=== PATIENT | female | born 1990 | race Caucasian/White ===

== ENCOUNTER 2020-07-28 11:40 | Outpatient (CLI) | payer OTHER, MEDICAID, SELFPAY ==
--- NOTE | ~2020-07-28 | XR_ITS ---
EXAMINATION: XR hysterosalpingogram DATE: 07/28/2020 12:58 INDICATION: Infertility. TECHNIQUE: Fluoroscopy was performed by the radiologist during contrast infusion into the endometrial cavity of the uterus by the primary physician. Fluoroscopy exposure time was 0.3 minutes. The total number of images was 8. FINDINGS: The intrauterine cavity is normal in morphology. The fallopian tubes are normal. There is n ormal free intraperitoneal spillage of contrast on either side. IMPRESSION: 1. Normal hysterosalpingogram. Reviewed, dictated and finalized at location A. PAINTER
[2020-07-28 12:34] LABS: Beta HCG Quantitative < 2.39 mIU/ML
--- NOTE | 2020-07-29 08:33 | PM.PROC ---
Procedure Note - Detailed Date of procedure: 07/29/20 Pre-op diagnosis: female infertility/z01.89 Post-op diagnosis: same Procedure performed: Hysterosalpingogram Description of procedure: Patient was on the fluoroscopic table. A speculum was placed in the vagina. The cervix was cleaned with Betadine. A catheter was placed the intrauterine cavity and the balloon was inflated at the tip of the catheter. The radiologist was present and began to capture images. Radiopaque dye was then instilled into the intrauterine cavity. The above findings were noted. When dye injection was completed. The balloon catheter was collapsed and the catheter was withdrawn. A final image the into atrial cavity was captured. The speculum had been was drawn prior to injection of the dye. Speculum and catheter were removed completely. The procedure was terminated. Anesthesia: none Surgeon: Dave Leo MD Estimated blood loss (mL): 0 Drains: No Packing: No Pathology: none sent Complications: No immediate complications Condition: stable Findings: Both tubes were patent, radiopaque dye was observed spilling into the pelvic cavity bilaterally at the end of the tubes. There was a normal-appearing endometrial cavity..
== END 2020-07-28 11:41 | disposition home or self-care (01) ==
PROVIDERS: PCP Nurse Practitioner; Visit Provider Obstetrics & Gynecology
DX: N97.9 Female infertility, unspecified (principal); Z01.89 Encounter for other specified special examinations
CPT/HCPCS: 36415; 74740; 84702; Q9966

== ENCOUNTER 2021-04-15 10:30 | Outpatient (RCR) | payer OTHER, SELFPAY ==
--- NOTE | 2021-03-23 14:23 | PTOPEVAL ---
INITIAL PHYSICAL THERAPY EVALUATION and PLAN OF CARE Thank you for referring Celeste Emery to [facility].? Celeste is scheduled to be seen for physical therapy? 2x/week for 2 weeks, 1x/wk x 4 wks. Please review, sign, date and return this plan of care ELVIA. I agree with and certify that the following plan of care is medically necessary. Referring Physician Date Admitting Provider: Attending Provider: Katty Ledezma, BLOCKER AUTOMATIC Referring Provider: *PT Outpatient Evaluation Start: 03/23/21 12:41 Freq: Status: Active Protocol: Document 03/23/21 12:40 RAVIN (Rec: 03/23/21 14:23 RAVIN [id number]) Therapy Assessment Status Assessment Status Assessment Status Evaluation Outpatient Past Medical History Past Medical History Source of Past Medical History Patient Neurological History Hx Other Neurological Disorders Yes: LE neuropathy - thigh distally Cardiovascular History Hx Hypertension Yes Gastrointestinal History Hx Cholecystectomy Yes Hx Gastroesophageal Reflux Disease Yes Hx Hernia Yes: at age 5 Musculoskeletal History Hx Fractures Yes: L clavicle, 5th metacarpal R hand - as child Endocrine History Hx Diabetes Yes: pre diabetic Hx Other Endocrine Disorders Yes: Hashimotos HEENT History Hx Tonsillectomy Yes: 2006 Reproductive History Hx Endometriosis Yes: biopsy, 2 surgeries Evaluation Information Problem Diagnosis chronic pelvic pain of female, incontinence Onset ~ 7-8 months ago Subjective Information Began to feel some urination Query Text:As Reported By Patient/ leakage once sitting after she Family went to the bathroom. At night - woke up with urge - but had already leaked. In sitting - if feels urge, sometimes feels like she has to hold herself once standing so that she doesn't leak. Will have pain with intercourse - insertion always . Then with penetration - feels like he is hitting something inside which hurts. Will have a constant lower abdominal pain - worsening with bladder problems. Bladder instillation scheduled for 03/29/2021 Prior Level of Function Activity Level (Last 3 Months) Occupation door dash,
--- NOTE | 2021-03-26 11:49 | PCPTNOTE ---
Pt called and cancelled per loan secretary stating she just left to ER and needed to cancel today .
--- NOTE | 2021-03-30 10:18 | PCPTNOTE ---
pt n/s n/c for today's appt. Contacted pt who thought her appt was monday and this week. Pt stated she will be here for appt.
--- NOTE | 2021-04-08 13:11 | PCPTNOTE ---
Patient did not show up for scheduled appointment this date. Attempted to contact pt to remind her of the next appt. recording stated the call could not go through at this time.
--- NOTE | 2021-04-20 13:35 | PCPTNOTE ---
Patient called & cancelled scheduled appointment this date due to not feeling well. Running low grade fever.
--- NOTE | 2021-04-27 11:10 | PCPTNOTE ---
Patient called & cancelled scheduled appointment this date due to having surgery for cyst. She thinks this is the source of her pain. No plans to return to PT afterwards. Will d/c from PT.
--- NOTE | 2021-04-27 11:14 | PCPTNOTE ---
PHYSICAL THERAPY DISCHARGE SUMMARY Admitting Provider: Attending Provider: Katty Ledezma, BANDOLEER STRAIGHTENER STAMPER Patient:Celeste Emery Date of :1990 Celeste called to cancel today's appointment, 04/27/2021, which was her re-evaluation appointment. She is having surgery for a cyst and thinks that is the source of her pain. She did not reschedule her re-evaluation appointment. She was seen x 3 visits. She did have 2 no show visits and 1 cancelled appointment. She will be discharged from PT at this time. The goals have been partially met. Thank you for referring Celeste to [facility]. Please review, sign, date and return this discharge summary ELVIA. I have been updated about Celeste's current status and I agree with discharge from the above service at this time. Referring Physician Date
== END 2021-04-27 15:04 | disposition home or self-care (01) ==
LOC: ANHPT 10:30
PROVIDERS: PCP Nurse Practitioner; Visit Provider Nurse Practitioner Obstetrics & Gynecology
DX: R10.2 Pelvic and perineal pain (principal)
CPT/HCPCS: 97110; 97140; 97162

== ENCOUNTER 2023-08-05 13:07 | Emergency (ER) | payer OTHER, SELFPAY ==
[2023-08-05 13:21] VITALS: BP 119/77; PULSE 82; RESP 16; TEMP 36.9; O2SAT 99
--- NOTE | 2023-08-05 13:57 | ED.URI ---
HPI - URI/Sore Throat General Chief Complaint: Upper Respiratory Infection Stated Complaint: throat hurts,feels airy Time Seen by Provider: 08/05/23 13:12 Source: patient Mode of arrival: ambulatory Limitations: no limitations History of Present Illness HPI Narrative: Celeste is a 33-year-old female patient presenting to clinic today with complaints of sore throat, slight nasal congestion, and cough times 1-2 days. Denies any known fever or chills. Is concerned that she may have strep as she has been exposed to a lot of people with strep. MD elicited complaint: cough and sore throat Related Data Home Medications Medication Instructions Recorded Confirmed cyclobenzaprine 10 mg tablet 10 mg PO DAILY 08/05/23 08/05/23 levothyroxine 25 mcg tablet 25 mcg PO DAILY 08/05/23 08/05/23 metoprolol tartrate 25 mg tablet 25 mg PO DAILY 08/05/23 08/05/23 Allergies Allergy/AdvReac Type Severity Reaction Status Date / Time latex Allergy Intermediate RASH Verified 08/05/23 13:15 cephalexin AdvReac Intermediate RASH Verified 08/05/23 13:15 codeine AdvReac Intermediate VOMITING Verified 08/05/23 13:15 Review of Systems Review of Systems: Pertinent positives per HPI. Patient denies any fever, chills, rash, headache, visual changes, dizziness, cough, shortness of breath, chest pain, palpitations, nausea, vomiting, diarrhea, constipation, abdominal pain, or any urinary issues. PMFSH Comments At the time of my signature, I reviewed and agree with the nursing past medical, surgical, social, and family history. There is no relevant family history pertinent to the patient complaint. Exam Narrative: General: Well-developed, well nourished, in no apparent distress Head: Normocephalic, atraumatic Eyes: Pupils equally round and reactive to light bilaterally, EOM intact, sclera and conjunctive clear, no discharge, lids normal Ears: TMs intact and congested, ear canals clear, no drainage, grossly hearing normal. Nose: Nares patent, clear discharge, no inflammation, no sinus tenderness. Mouth: Oral pharynx red without lesions or masses, good dentition, MMM. Postnasal drip Neck: Supple, trachea midline, no enlargement of anterior or posterior cervical nodes, no thyroid masses or goiter palpable. Cardio: Regular rate and rhythm, s1 and s2 normal, no murmur appreciated. Resp: Clear to auscultation bilaterally, no rhonchi, rales, wheezing or rubs Course Course Emergency Course: Portions of this record may have been created with voice recognition software. Level of Care: Express Care Visit Vital Signs Vital signs: Vital Signs Temperature 36.9 C 08/05/23 13:21 Pulse Rate 82 08/05/23 13:21 Respiratory Rate 16 08/05/23 13:21 Blood Pressure 119/77 08/05/23 13:21 Pulse Oximetry 99 08/05/23 13:21 Oxygen Delivery Room Air 08/05/23 13:21 Temperature 36.9 C 08/05/23 13:21 Pulse Rate 82 08/05/23 13:21 Respiratory Rate 16 08/05/23 13:21 Blood Pressure 119/77 08/05/23 13:21 Pulse Oximetry 99 08/05/23 13:21 Oxygen Delivery Room Air 08/05/23 13:21 Vital signs reviewed MDM - URI/Sore Throat MDM Narrative Medical decision making narrative: At the time of visit patient is resting comfortably on the exam table. Patient appears to be nontoxic. Labs: COVID and strep test were negative in the clinic today. We will send strep for culture. Plan: I suspect patient has URI/pharyngitis. We will send strep for culture. Supportive measures were discussed with the patient and they voiced understanding discharge instructions and agrees to treatment plan. Return precautions reviewed Differential Diagnosis Differential diagnosis: Likely upper respiratory infection, otitis media, sinusitis, viral infection, bronchitis, influenza, pharyngitis and other (COVID) Discharge Plan Discharge Clinical Impression: Pharyngitis Qualifiers: Pharyngitis/tonsillitis etiology: unspecified etiology Qualified Co
== END 2023-08-05 14:03 | disposition home or self-care (01) ==
PROVIDERS: Emergency Provider Nurse Practitioner Family
DX: J02.9 Acute pharyngitis, unspecified (principal); J06.9 Acute upper respiratory infection, unspecified; Z20.822 Contact with and (suspected) exposure to COVID-19; I10 Essential (primary) hypertension; K21.9 Gastro-esophageal reflux disease without esophagitis; R73.03 Prediabetes; E06.3 Autoimmune thyroiditis; Z80.9 Family history of malignant neoplasm, unspecified
CPT/HCPCS: 87081; 87426; 87880; 99213; G0463

== ENCOUNTER 2024-02-17 10:50 | Emergency (ER) | payer OTHER, SELFPAY ==
[2024-02-17] VITALS (20 sets, daily range): BP systolic 104–131; BP diastolic 67–93; PULSE 76–87; RESP 16–18; TEMP 36.4; O2SAT 98–100
--- NOTE | ~2024-02-17 | CT_ITS ---
EXAMINATION: CT abdomen pelvis w con DATE: 02/17/2024 16:01 INDICATION: LLQ pain/tenderness TECHNIQUE: Computed tomography (CT) of the abdomen and pelvis was performed with 100 mL Omnipaque-350 intravenous contrast. Automated exposure control and iterative reconstruction technique were employe d. The dose-length product was 375.21 mGy-cm. COMPARISON: 01/01/2019. FINDINGS: Lower thorax: Unremarkable Liver: Displaced clip near the liver dome. Small cyst/hemangioma in the left lower lobe. Biliary/Gallbladder: Gallbladder is absent. Mild intra and extrahepatic bile duct dilation, unchanged , likely secondary to cholecystectomy. Pancreas: No mass or duct dilation. Spleen: Normal. Adrenals:No mass. Kidneys: No suspicious mass, obstructing stone, or hydronephrosis. GI tract: Mild distal esophageal and gastric wall edema. No small or large bowel dilation. Status pos t appendectomy. Mesentery/Peritoneum: Mild mesenteric edema. No ascites, mass, or free air. Retroperitoneum: No mass. Pelvis: 3.4 cm indeterminate density right ovarian cyst. Moderate volume free pelvic fluid. Normal ur inary bladder, uterus, and left ovary. Soft Tissues: Soft tissues and body wall unremarkable. Bones: No acute osseous finding. IMPRESSION: Mild esophagitis/gastritis. Mild nonspecific mesenteric edema. 3.4 cm indeterminate right ovarian cyst, features suggestive of a hemorrhagic cyst in the prior ultra sound. Prior recommendation for follow-up endovaginal ultrasound in 8 weeks is unchanged. Moderate free pelvic fluid. Reviewed, dictated and finalized at location K. IMPRESSION: Mild esophagitis/gastritis. Mild nonspecific mesenteric edema. 3.4 cm indeterminate right ovarian cyst, features suggestive of a hemorrhagic c yst in the prior ultrasound. Prior recommendation for follow-up endovaginal ult rasound in 8 weeks is unchanged. Moderate free pelvic fluid.
--- NOTE | ~2024-02-17 | US_ITS ---
EXAMINATION: US transvaginal DATE: 02/17/2024 14:35 INDICATION: LLQ pain, eval for torsion TECHNIQUE: Multiple endovaginal sonographic images of the pelvis were obtained. COMPARISON: 01/12/2018; HSG 07/28/2020; CT abdomen pelvis 01/01/2019. FINDINGS: Uterus: 7.4 x 4.4 x 5.4 cm. Retroverted. Endometrial complex measures 7 mm. Right Ovary: 4.3 x 3.2 x 3.8 cm. Vascular flow is present. Circumscribed 2.4 cm right ovarian lesion with lacy, reticular internal echogenicities and no internal flow. Left Ovary: 3.1 x 1.9 x 2.0 cm. Vascular flow is present. Multiple punctate echogenic foci. Multiple somewhat peripheral simple cysts/dominant follicles. There is moderate volume free fluid in the pelvis. IMPRESSION: No sonographic evidence of ovarian torsion. 2.4 cm complex right ovarian cyst, possible hemorrhagic cyst. Recommend endovaginal pelvic ultrasound follow-up in 8 weeks to demonstrate resolution. Moderate volume free pelvic fluid. Reviewed, dictated and finalized at location K. IMPRESSION: No sonographic evidence of ovarian torsion. 2.4 cm complex right ovarian cyst, possible hemorrhagic cyst. Recommend endovag inal pelvic ultrasound follow-up in 8 weeks to demonstrate resolution. Moderate volume free pelvic fluid.
--- NOTE | 2024-02-17 13:36 | ED.ABDPAIN ---
HPI - Abdominal Pain General Chief Complaint: Abdominal Pain Stated Complaint: pelvic pain Time Seen by Provider: 02/17/24 12:46 History of Present Illness HPI narrative: 33-year-old female presenting with abdominal pain. Patient states that she has a history of endometriosis as well as ovarian cysts. States that it feels like prior pain that she has had with these. She is supposed to have surgery in February for her endometriosis but her doctor will not give her any pain meds until then. For the last several days she has had severe suprapubic and left lower quadrant pain. Severity intermittently intensifies. Denies abnormal bleeding, dysuria, hematuria. States that she has had trouble having bowel movements lately. No fevers. No further complaints. Related Data Home Medications Medication Instructions Recorded Confirmed cyclobenzaprine 10 mg tablet 10 mg PO DAILY 08/05/23 08/05/23 levothyroxine 25 mcg tablet 25 mcg PO DAILY 08/05/23 08/05/23 metoprolol tartrate 25 mg tablet 25 mg PO DAILY 08/05/23 08/05/23 Allergies Allergy/AdvReac Type Severity Reaction Status Date / Time latex Allergy Intermediate RASH Verified 02/17/24 13:56 cephalexin AdvReac Intermediate RASH Verified 02/17/24 13:56 codeine AdvReac Intermediate VOMITING Verified 02/17/24 13:56 Review of Systems Review of Systems: All systems reviewed & are unremarkable except as noted in HPI and below Exam Narrative: GENERAL: Intermittently tearful secondary to pain HEAD: Normocephalic, atraumatic. EYES: PERRLA and EOMI. ENT: Mucous membranes moist. NECK: Supple. CHEST: Clear to auscultation. No respiratory distress. HEART: Regular rate and rhythm ABDOMEN: Soft, + suprapubic and left lower quadrant tenderness without guarding or rebound EXTREMITIES: Normal range of motion. SKIN: Warm, dry, no rash. NEURO: No focal deficits. Alert and oriented x3. PSYCH: Normal mood and affect. Course Vital Signs Vital signs: Vital Signs Temperature 97.6 F 02/17/24 10:58 Pulse Rate 87 02/17/24 10:58 Respiratory Rate 16 02/17/24 10:58 Blood Pressure 131/80 02/17/24 10:58 Pulse Oximetry 100 02/17/24 10:58 Temperature 97.6 F 02/17/24 10:58 Pulse Rate 82 02/17/24 14:03 Respiratory Rate 18 02/17/24 14:03 Blood Pressure 124/93 H 02/17/24 13:31 Pulse Oximetry 100 02/17/24 14:03 MDM - Abdominal Pain MDM Narrative Medical decision making narrative: 33-year-old female presenting with abdominal pain. Vitals are stable. Exam remarkable for the above. Blood work with mild leukocytosis and hypokalemia. P.o. potassium has been ordered. Pelvic ultrasound reveals a right-sided complex ovarian cyst. No evidence of torsion. Patient will need to follow-up with her fence laborer regarding this. CT abdomen pelvis obtained which reveals no acute abnormalities. There is a moderate amount of pelvic fluid. Patient has a long history of endometriosis and she is actually scheduled for a procedure in about 3 weeks. Suspect this may be related to that. Discussed with the patient to continue using ibuprofen for pain but will send in for some narcotic pain medication for severe pain. Zofran as needed for nausea. Patient is already scheduled with her fence laborer. Appropriate return precautions given. Discharged in stable condition. Differential Diagnosis Differential diagnosis: Likely abdominal pain, diverticulitis, endometriosis, gastroenteritis, pancreatitis, small bowel obstruction and other (Ovarian cyst) Medical Records Attestation: I reviewed the patient's medical records. Lab Data Attestation: I reviewed the patient's lab results. 02/17/24 14:01 02/17/24 14:01 Labs: Lab Results 02/17/24 Range/Units 14:01 WBC 10.5 H (4.5-10.0) K/mm3 RBC 3.95 L (4.2-5.4) M/mm3 Hgb 12.7 (12.0-15.0) g/dL Hct 35.8 L (37.0-47.0) % MCV 90.6 (80-100) fl MCH 32.2 (26-34) pg MCHC 35.5 (32-36) g/dl
[2024-02-17] MEDS: SODIUM CHLORIDE 0.9% IV 1,000 ML 999 ML IV CONT (13:55)
[2024-02-17] MEDS: KETOROLAC 15 MG/ML VIAL (*BKC) IV PUSH (13:55)
[2024-02-17] MEDS: HYDROmorphone HCL INJ (*CRX) 1 MG/ML SYR 0.5 MG IV PUSH (13:56)
[2024-02-17 14:07] LABS: Basophils Absolute Auto 0.1 K/mm3 (0.0-0.1); Basophils Percent Auto 0.7 % (0.2-1.2); Eosinophils Absolute Auto 0.2 K/mm3 (0-0.3); Eosinophils Percent Auto 1.4 % (0-4.4); Hematocrit 35.8 % (37.0-47.0); Hemoglobin 12.7 g/dL (12.0-15.0); Immature Granulocyte Absolute 0.05 K/mm3 (0.00-0.031); Immature Granulocyte Percent A 0.5 % (0-0.5); Lymphocytes Absolute Auto 3.38 K/mm3 (0.9-3.2); Lymphocytes Percent Auto 32.2 % (18.3-44.2); Mean Corpuscular HGB Conc 35.5 g/dl (32-36); Mean Corpuscular Hemoglobin 32.2 pg (26-34); Mean Corpuscular Volume 90.6 fl (80-100); Mean Platelet Volume 9.8 fl (7.4-10.4); Monocytes Absolute Auto 0.6 K/mm3 (0.1-0.6); Monocytes Percent Auto 5.3 % (2.6-8.5); Neutrophils Absolute Auto 6.3 K/mm3 (1.3-6.7); Neutrophils Percent Auto 59.9 % (45.5-73.1); Platelet Count Result 245 k/mm3 (150-375); Red Blood Count 3.95 M/mm3 (4.2-5.4); Red Cell Distribution Width 12.1 % (11.5-14.5); White Blood Count 10.5 K/mm3 (4.5-10.0)
[2024-02-17] MEDS: ONDANSETRON INJ 4 MG/2 ML VIAL IV PUSH (14:11)
[2024-02-17 14:16] LABS: Add Urine Microscopic? NO; Appearance Urine Clear (Clear); Bilirubin Urine Negative (Negative); Blood Urine Negative (Negative); Color Urine Yellow (Yellow); Glucose Urine UA Negative (Negative); Ketones Urine Negative (Negative); Leukocyte Esterase Ur Negative LEU/UL (Negative); Nitrate Urine Negative (Negative); Protein Urine Negative (Negative); Specific Grav Ur 1.018 (1.001-1.035); Urobilinogen Urine 0.2 mg/dL (<2.0)
[2024-02-17 14:17] LABS: Alanine Aminotransferase 16 U/L (6-35); Albumin Level 4.2 g/dL (3.5-5.1); Alkaline Phosphatase 52 U/L (38-126); Anion Gap 6 mmol/L (4-12); Aspartate Amino Transferase 23 U/L (14-36); Bilirubin,Total 0.3 mg/dL (0.2-1.3); Blood Urea Nitrogen 13 mg/dL (7-17); Calcium 9.1 mg/dL (8.4-10.2); Carbon Dioxide 26 mmol/L (22-30); Chloride 104 mmol/L (98-107); Estimated CRCL calculation 94 ml/min; Estimated Glomerular Filt Rate > 60; Glucose 120 mg/dL (65-110); Lipase 52 U/L (23-300); Potassium 3.3 mmol/L (3.4-5.0); Sodium 136 mmol/L (137-145)
[2024-02-17 14:24] LABS: Pregnancy On Board Control Positive; Urine Pregnancy Test Negative
[2024-02-17] MEDS: POTASSIUM CHLORIDE 20 MEQ ER TABLET 40 MEQ PO (18:11)
== END 2024-02-17 18:43 | disposition home or self-care (01) ==
PROVIDERS: Emergency Provider Emergency Medicine
DX: N83.201 Unspecified ovarian cyst, right side (principal); R10.32 Left lower quadrant pain; N80.9 Endometriosis, unspecified
CPT/HCPCS: 36415; 74177; 76830; 80053; 81003; 81025; 83690; 85025; 96361; 96374; 96375; 99284; A9270; J1170; J1885; J2405; J7030; Q9967

== ENCOUNTER 2024-04-15 17:22 | Emergency (ER) | payer OTHER, SELFPAY ==
[2024-04-15 17:34] VITALS: BP 108/70; PULSE 74; RESP 20; TEMP 37.1; O2SAT 100
--- NOTE | 2024-04-15 18:09 | ED.EYEPROB ---
HPI - Eye Problem General Chief complaint: Eye Problems Stated complaint: Both Eyes Irritation Time Seen by Provider: 04/15/24 18:31 Source: patient and RN notes reviewed Mode of arrival: ambulatory Limitations: no limitations History of Present Illness HPI Narrative: 33-year-old female presents with concern of for right lower eyelid redness, tenderness. She reports she did a telehealth visit and they told her it was a clogged tear duct and gave her an eye drop. Reports the eyedrops cause tried a burn. Reports she does not feel like her tear duct is locked because she makes tears. She reports the area has gotten slightly more red swollen and tender throughout the day. MD chief complaint: eye redness Related Data Home Medications Medication Instructions Recorded Confirmed brexpiprazole 2 mg tablet (Rexulti) mg 04/15/24 clonazepam 0.5 mg tablet mg 04/15/24 cyclobenzaprine 10 mg tablet mg 04/15/24 diazepam 5 mg tablet mg 04/15/24 ergocalciferol (vitamin D2) 1,250 04/15/24 mcg (50,000 unit) capsule ibuprofen 800 mg tablet mg 04/15/24 levothyroxine 25 mcg capsule mcg PO 04/15/24 (Tirosint) efxtop-ybvgnqnu-ldpcgfr cap PO 04/15/24 3,000-10,000-14,000 unit capsule,delayed rel (Zenpep) metoprolol tartrate 25 mg tablet mg 04/15/24 ondansetron 8 mg disintegrating mg 04/15/24 tablet relugolix 40 mg-estradiol 1 tablet PO 04/15/24 04/15/24 mg-norethindrone acetate 0.5 mg tablet (Myfembree) sulfacetamide sodium 10 % eye drops drp 04/15/24 Allergies Allergy/AdvReac Type Severity Reaction Status Date / Time latex Allergy Intermediate RASH Verified 02/17/24 13:56 cephalexin AdvReac Intermediate RASH Verified 02/17/24 13:56 codeine AdvReac Intermediate VOMITING Verified 02/17/24 13:56 Review of Systems Review of Systems: CONSTITUTIONAL: Denies malaise, chills, sweats, or fever. EYES: Denies visual changes. Reports redness, swelling and tenderness to the right lower eyelid ENT: Denies rhinorrhea, congestion, sinus pain, otalgia or sore throat. SKIN: Denies rash or itching. NEUROLOGIC: Denies numbness, weakness, or headache. PSYCHIATRIC: Denies anxiety or depression. All systems reviewed & are unremarkable except as noted in HPI and below PMFSH Comments At time of signature, agree with nursing past medical, surgical, social and family history. There is no relevant family history pertinent to the presenting complaint Exam Narrative: GENERAL: Well-appearing, well-nourished, and in no acute distress. HEAD: Normocephalic, atraumatic. EYES: PERRLA, bilateral sclera clear, and EOMI. No nystagmus. Bilateral conjunctivae clear. Right lower eyelid noted to have mild superficial erythema and edema without induration. Left Upper and lower eyelid unremarkable, no periorbital edema noted ENT: Nares clear, turbinates pink, no rhinorrhea or epistaxis. Mucous membranes moist. TM pearly busby with sharp light reflex bilaterally; no tragal tenderness. NECK: Supple. CHEST: No respiratory distress. Speaks in full sentences. HEART: Regular rate and rhythm. SKIN: Warm, dry, no visible rash. NEURO: Alert and oriented x3. PSYCH: Normal mood and affect Course Course Emergency Course: Patient is aware of diagnosis, understands and agrees to treatment plan. Anticipatory guidance given. Patient agrees to follow-up as directed and is aware of reasons to seek care at the emergency department. Portions of this record may have been created with voice recognition software Level of Care: Express Care Visit Vital Signs Vital signs: Vital Signs Temperature 98.8 F 04/15/24 17:34 Pulse Rate 74 04/15/24 17:34 Respiratory Rate 20 04/15/24 17:34 Blood Pressure 108/70 04/15/24 17:34 Pulse Oximetry 100 04/15/24 17:34 Oxygen Delivery Room Air 04/15/24 17:34 Temperature 98.8 F 04/15/24 17:34 Pulse Rate 74 04/15/24 17:34 Respiratory Rate 20 04/15/24 17:34 Blood Pressure 108/70 10
== END 2024-04-15 18:45 | disposition home or self-care (01) ==
PROVIDERS: Emergency Provider Nurse Practitioner
DX: H00.032 Abscess of right lower eyelid (principal); I10 Essential (primary) hypertension; K21.9 Gastro-esophageal reflux disease without esophagitis; R73.03 Prediabetes; E06.3 Autoimmune thyroiditis; G62.9 Polyneuropathy, unspecified
CPT/HCPCS: 99213; G0463

== ENCOUNTER 2024-12-30 16:08 | Emergency (ER) | payer OTHER, SELFPAY ==
--- NOTE | 2024-12-30 16:12 | ED.SKABFB ---
HPI - Skin/Abscess/Foreign Bdy General Chief complaint: Skin/Abscess/Foreign Body Stated complaint: Face Rash Time Seen by Provider: 12/30/24 16:29 Source: patient and RN notes reviewed Mode of arrival: ambulatory Limitations: no limitations History of Present Illness HPI narrative: 34-year-old female presents with concern for a room painful in itchy rash on her right forehead. She reports she noticed the rash this morning when she woke up. Reports she feels like it is going into her hairline. She denies any general malaise, fever, aches, chills, sweats. Denies any eye pain, itching, vision changes. MD complaint: rash Related Data Home Medications ?Medication ?Instructions ?Recorded ?Confirmed ?Last Taken ?Type brexpiprazole 2 mg tablet (Rexulti) mg 04/15/24 Unknown History clonazepam 0.5 mg tablet mg 04/15/24 Unknown History cyclobenzaprine 10 mg tablet mg 04/15/24 Unknown History diazepam 5 mg tablet mg 04/15/24 Unknown History ergocalciferol (vitamin D2) 1,250 04/15/24 Unknown History mcg (50,000 unit) capsule ibuprofen 800 mg tablet mg 04/15/24 Unknown History levothyroxine 25 mcg capsule mcg PO 04/15/24 Unknown History (Tirosint) wjenhu-fuyhamls-pjjegdi cap PO 04/15/24 Unknown History 3,000-10,000-14,000 unit capsule,delayed rel (Zenpep) metoprolol tartrate 25 mg tablet mg 04/15/24 Unknown History ondansetron 8 mg disintegrating mg 04/15/24 Unknown History tablet relugolix 40 mg-estradiol 1 tablet PO 04/15/24 04/15/24 Unknown History mg-norethindrone acetate 0.5 mg tablet (Myfembree) sulfacetamide sodium 10 % eye drops drp 04/15/24 Unknown History Allergies Allergy/AdvReac Type Severity Reaction Status Date / Time latex Allergy Intermediate RASH Verified 12/30/24 16:17 cephalexin AdvReac Intermediate RASH Verified 12/30/24 16:17 codeine AdvReac Intermediate VOMITING Verified 12/30/24 16:17 Review of Systems Review of Systems: CONSTITUTIONAL: Denies malaise, chills, sweats, or fever. EYES: Denies redness, or discharge. Denies eye pain, vision changes, eye itchiness. ENT: Denies rhinorrhea, congestion, swollen lips, swollen tongue SKIN: Reports painful itchy rash to the right forehead MUSCULOSKELETAL: Denies joint pain or myalgia. NEUROLOGIC: Denies headache. All systems reviewed & are unremarkable except as noted in HPI and below PMFSH Comments At time of signature, agree with nursing past medical, surgical, social and family history. There is no relevant family history pertinent to the presenting complaint Exam Narrative: GENERAL: Well-appearing, well-nourished, and in no acute distress. HEAD: Normocephalic, atraumatic. EYES: PERRLA, sclera and conjunctivae clear, and EOMI. ENT: Mucous membranes moist. NECK: Supple. No lymphadenopathy CHEST: Clear to auscultation. No respiratory distress. HEART: Regular rate and rhythm. SKIN: Warm, dry. Zosteriform rash noted to the right forehead without eyelid or eye involvement at this time NEURO: Alert and oriented x3. PSYCH: Normal mood and affect Course Course Emergency Course: Patient is aware of diagnosis, understands and agrees to treatment plan. Anticipatory guidance given. Patient agrees to follow-up as directed and is aware of reasons to seek care at the emergency department. Portions of this record may have been created with voice recognition software Level of Care: Express Care Visit Vital Signs Vital signs: Reviewed. MDM - Skin/Abscess/Foreign Bdy MDM Narrative Medical decision making narrative: Does not appear at this time to be erythema multiforme, bullous, SJS, TEN; no evidence at this time to suggest RMSF, endocarditis or Lyme disease; patient looks well, nontoxic and is tolerating oral intake; no neurologic signs or symptoms; no headache, photophobia or neck pain; afebrile; appropriate for initial outpatient treatment; discussed the importance of follow-up, patient agrees; question, viral exanthema, contact dermatitis, allergic dermatitis, eczema, urticaria, shingles. No soft palate or uvula edema, no tongue, lip edema or other mucosal involvement, no respiratory compromise, no stridor, no wheezing, no wheezing, no history of syncope, no hypotension, no nausea, vomiting, or diarrhea. Instructed patient to go to nearest ER immediately for any worsening symptoms including but not limited to: fever, spreading rash, pain, sore throat, headache, dizziness, chest pain, trouble breathing, or any symptoms concerning to the patient. Critical Care Time Critical Care Time Critical Care Time: No Discharge Plan Discharge Clinical Impression: Shingles Patient Disposition: Home Condition: Stable Instructions: Shingles (ED) Additional Instructions: Alternate Tylenol and Motrin for pain, body aches, fever. You may take 2 regular strength Tylenol every 4 hours, alternate with 3 regular strength Motrin every 6 hours so you are taking something every 2-3 hours. Apply topical pain medicine and take antiviral medicine as prescribed. Shingles pain can last weeks, sometimes months. If your pain persists after antiviral medication is complete please follow-up with your primary care provider for a long-term pain control plan. Follow-up with your doctor in the next 2 to 3 days. Go to the emergency room if you have any urgent concerns. Patient Language: French Prescriptions: New valacyclovir 1 gram tablet 1,000 mg PO TID 7 Days Qty: 21 0RF No Action cyclobenzaprine 10 mg tablet ibuprofen 800 mg tablet clonazepam 0.5 mg tablet ondansetron 8 mg tablet,disintegrating sulfacetamide sodium 10 % drops ergocalciferol (vitamin D2) 1,250 mcg (50,000 unit) capsule diazepam 5 mg tablet metoprolol tartrate 25 mg tablet levothyroxine [Tirosint] 25 mcg capsule PO Rexulti 2 mg tablet Zenpep 3,000-10,000 -14,000-unit capsule,delayed release(DR/EC) PO Myfembree 40-1-0.5 mg tablet PO Follow-up/Referrals: [facility] [Primary Care Provider] -
[2024-12-30 16:17] VITALS: BP 125/74; PULSE 82; RESP 14; TEMP 36.5; O2SAT 100
== END 2024-12-30 16:45 | disposition home or self-care (01) ==
PROVIDERS: Emergency Provider Nurse Practitioner
DX: B02.9 Zoster without complications (principal); I10 Essential (primary) hypertension; K21.9 Gastro-esophageal reflux disease without esophagitis; E06.3 Autoimmune thyroiditis; R73.03 Prediabetes
CPT/HCPCS: 99213; G0463

== ENCOUNTER 2025-01-08 16:51 | Emergency (ER) | payer OTHER, SELFPAY ==
--- OUTSIDE RECORDS SUMMARY | 2025-01-08 16:53 | XMS_ITS | Clinical Summary ---
Author Organization [facility] Address [address] [place] [address] Care Team Providers Care Developer Analyst Name Role Phone Yvette Rowland Primary Care Provider [phone] Source Comments [facility],non-owned Affiliates and Associated Physician Practices is amultiple site organization consisting of ambulatory clinics and hospital sitesin [place], [place], [place] and [place]. This disclosure is being madepursuant to the Care Everywhere program and may not contain all information available regarding this patient. Last updated 18.[facility] Allergies Active Allergy Reactions Criticality Noted Date Comments Codeine Itching 10/27/2014 Cephalexin Nausea and/or Vomiting 02/24/2012 Latex Rash,Itching Low 09/07/2012 Levothyroxine Other Low 12/18/2023 Abdminal cramping & upset, Constipation Medications * This document contains information received from the source organization and may not represent a complete record from that organization. * Be aware that medications may not be up to date on this document. Alwaysverify current medications with the patient. metoprolol tartrate IR (LOPRESSOR) 50 MG tablet Take 1 Tab by mouth once daily. 30 Tab 5 04/04/2013 Active albuterol HFA (VENTOLIN HFA) 108 (90 BASE) MCG/ACT inhaler Inhale 2 Puffs by mouth every 6 hours as needed. 18 g 3 06/24/2013 Active clonazePAM (KLONOPIN) 0.5 MG tablet Take 1 Tab by mouth 2 times daily as needed for Anxiety. 60 Tab 0 04/21/2014 Active propranolol (Inderal) 10 MG tablet Take 1 (one) tablet by mouth 2 times daily as needed (anxiety) 60 tablet 2 09/12/2024 Active QUEtiapine (SEROquel) 100 MG tablet TAKE 1 TABLET BY MOUTH EVERYDAY AT BEDTIME 90 tablet 1 10/07/2024 Active hydrOXYzine HCl (Atarax) 25 MG tablet Take 1 (one) tablet by mouth 2 times daily as needed (anxiety) 60 tablet 2 10/17/2024 Active QUEtiapine (SEROquel) 25 MG tablet Take 1 (one) tablet by mouth 2 times daily 180 tablet 10/18/2024 Active busPIRone (Buspar) 10 MG tablet Take 1 (one) tablet by mouth 2 times daily 60 tablet 1 11/06/2024 Active Active Problems Problem Noted Date Diagnosed Date Behavioral change 07/03/2024 Former smoker 04/04/2013 Hypertension GERD (gastroesophageal reflux disease) Depressive disorder, not elsewhere classified Encounters * This document contains information received from the source organization and may not represent a complete record from that organization. Date Type Department Care Team Description 11/21/2024 Travel 10/24/2024 Travel from Last 3 Months Immunizations Immunization Administration Dates Next Due DTP 1990,1990,1990 DTaP VACCINE IM (6wk-6yrs) 12/24/1991 HIB-PRP-T 4 DOSE 08/14/1991,1990, 1,1990 POLIO OPV 12/24/1991,1990,1990 ,1990 Family History Medical History Relation Name Comments Drug Abuse Mother narcotics Cancer Paternal Grandfather colon p rostrate and lung Cancer Paternal Grandmother ovarian Relation Name Status Comments Mother Paternal Grandfather Paternal Grandmother Social History Tobacco Use Types Packs/Day Years Used Date Smoking Tobacco: Former Cigarettes Tobacco Cessation:Counseling Given: Not Answered Alcohol Use Standard Drinks/Week Comments Yes 0 (1 standard drink = 0.6 oz pur e alcohol) PHQ-2 Answer Date Recorded Patient Health Questionnaire-2 Score 2 12/19/2024 Comments Unknown Sex and Gender Information Value Date Recorded Sex Assigned at Female 07/15/2024 11:45 AM WELDING PROCESS SPECIALIST Legal Sex Female 12:41 PM WELDING PROCESS SPECIALIST Gender Identity Female 07/15/2024 11:45 AM WELDING PROCESS SPECIALIST Sexual Orientation Straight 07/15/2024 11 :45 AM WELDING PROCESS SPECIALIST 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 Not on file Not on file Not on file Last Filed Vital Signs Vital Sign Reading Time Taken Comments Blood Pressure 140/78 10/24/2024 8:24 AM CDT Pulse 84 10/24/2024 8:24 AM CDT Temperature 36.6 C (97.9 F) 10/24/2024 8:24 AM CDT Respiratory Rate 20 07/03/2024 10:22 AM WELDING PROCESS SPECIALIST Oxygen Saturation 97% 10/24/2024 8:24 AM CDT Inhaled Oxygen Concentration - - Weight 72.1 kg (159 lb) 10/24/2024 8:24 AM CDT Height 157.5 cm (5' 2) 07/25/2024 9:26 AM WELDING PROCESS SPECIALIST Body Mass Index 29.08 07/25/2024 9:26 AM WELDING PROCESS SPECIALIST Plan of Treatment Health Maintenance Due Date Last Done Comments DTAP/TDAP/TD VACCINES (5 - Tdap) 2001 12/24/1991, 1990, 1990, Additional history exists HIV SCREENING 2005 HEPATITIS B VACCINE (1 of 3 - 19+ 3-dose series) 2009 PAP SMEAR 2011 HPV VACCINE (1 - 3-dose SCDM series) 2017 COVID-19 VACCINE ( season) 2024 INFLUENZA VACCINE (#1) 2025 05/09/2024, 2015 ZOSTER VACCINE (1 of 2) 2040 HIB VACCINE Completed 08/14/1991, 09/25, 1990, Additional history exists HEPATITIS C SCREENING Completed 05/29/2024 DEPRESSION SCREENING Completed 07/25/2024 MENINGOCOCCAL (Group B) VACCINE SHARED DECISION-MAKING Aged Out No longer eligible based on patient's age to complete this topic MENINGOCOCCAL GROUPS A/C/Y/W VACCINE Aged Out No longer eligible based on patient's age to complete this topic PNEUMOCOCCAL VACCINE Aged Out No long er eligible based on patient's age to complete this topic Insurance AETNA AETNA Care Teams Developer Analyst Relationship Specialty Start Date End Date Yvette Rowland [address] [place] [address] PCP - General 07/03/24
--- OUTSIDE RECORDS SUMMARY | 2025-01-08 16:53 | XMS_ITS | Data Portability ---
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 with labs and hysterosal pingogram. The labs also are appropriat e for evaluation of her abnormal uterine bleeding. Abnormal u terine bleeding [id number] 9100 N93.9 Endometrio sis of pelvis 73901277 N80.3 [id number] Arash Leo MD [facility] [address] [address] 06/23/2020 09:42:35 06/23/2020 17:12:52 Pain in pelvis 99189332 R10.2 N93.9 [id number] Arash Leo MD [facility] [address] [address] 06/23/2020 09:43:38 06/23/2020 11:19:29 Female infertility [id number] N97.9 this patient is a 30-year-ol d female who presents for follow-up on pelvic pain. She had a pelvic ultrasound . It was normal essentiall y. Her Thyroid testing was abnormal. Repeat thyroid testing today. Her thyroid hormone was normal but her TSH was low. She has had irregular bleeding for several months but is also gained 40 lb. She is under lot of stress. We have doubt about the validity of the individual thyroid test, TSH. She is continuing to desire . She wants to proceed with hysterosal pingogram. Her consort is getting a semen analysis. She will be referred cerebri angle after these testing is done. We discussed IU I today. We spent more than 15 minutes face-to-fa ce. We are going to observe pelvic pain until /infertili ty treatment is addressed completely . Hyperthyroidism 97735692 E05.90 Pain in pelvis 63317409 R10.2 N93.9 [id number] Arash Leo MD [facility] [address] [address] 07/29/2020 09:27:42 07/29/2020 09:28:53 [id number] Katty Ledezma [facility] [address] [address] 02/16/2021 10:20:57 02/16/2021 15:16:53 Urinary incontinence 287012002 R32 Neg urine dip Chronic pe lvic pain of female 624577287 R10.2 [facility] of [facility] referral to Dr. Anne-Co luci sent for endometroi sis Chronic in terstitial cystitis 326300124 N30.10 Hx of urologist visit.Tria l of Elmiron in the past from urologist but inconsiste nt use so unsure if this is something that fully helped or not. Trial of bladder instillati onsWill add OAB medication if neededHer urine dip was negIC Network & ICN food list appIf unable to manage bladder issues will refer to [facility] urogyn or urology. Dyspareunia [id number] N94 .10 We discussed starting PT pelvic floor for issues with painful sex & this might also help her UUI & intense urgency as well. [id number] Katty Ledezma [facility] [address] [address] 03/29/2021 11:44:22 03/29/2021 13:00:01 Urinary bladder pain 35550636 R39.82 Return for bladder instil #2 unless she gets into urogyn/uro logist first.Then they can continue treatment for CIC/PBS or other issues. Health Concerns Section Related Observation LastModified by Organization Detai ls LastModified Time None Recorded Concern Status LastModified by Organization Details LastModified Time None Recorded Advance Directives Directive N: Payers Insurance Date Sequence Insurance Name Policy Number Policy Espitia Covered Member ID Espitia Member ID Guarantor Name 02/15/2021 1 [facility] PRIOR TO 12/24/2020 (MEDICAID REPLACEMENT - HMO) Celeste Capone [id number] Celeste Emery 04/12/2021 1 [facility] ON OR AFTER 12/24/20 (MEDICAID REPLACEMENT - HMO) Celeste Emery [id number] Celeste Emery Notes Date Note Type Note Provider Name and Address Organization Details Recorded Time 06/23/2020 text/html this patient is a 30-year-old female who presents for follow-up on pelvic pain. She had a pelvic ultrasound. It was normal essentially. Her Thyroid testing was abnormal. Repeat thyroid testing today. Her thyroid hormone was normal but her TSH was low. She has had irregular bleeding for several months but is also gained 40 lb. She is under lot of stress. We have doubt about the validity of the individual thyroid test, TSH. She is continuing to desire . She wants to proceed with hysterosalpingogram . Her consort is getting a semen analysis. She will be referred cerebri angle after these testing is done. We discussed IU I today. We spent more than 15 minutes [id number]-os-[id number]. We are going to observe pelvic pain until /infertility treatment is addressed completely. Arash Leo MD [address], [place], [address], [facility] 06/23/2020 10:57:07 02/16/2021 text/html Patient is a 30y o white reproductive age female here today with concerns of Urinary incontinence with urge.She recently experienced an episode of 'wetting the bed' a few days ago.Her incontinence issues seem to be more UUI vs LEISA in nature.She has seen a urologist in the past; voiced that they gave me Elmiron & did some kind of catheter with medicine in it.She thinks they diagnosed her with IC.Did not take the medication at that time in 2018. She continues to have issues with urgency, occasional bladder pain & UUI.She has a hx of endometriosis diagnosed on Laparscopy 2018 ablated.She is wanting to get .Has been trying clomid but no success. She is also having issues with deep dyspareunia and painful periods.BM's are daily but will feel lots of discomfort after straining to have a BM.Has been previously 11yrs ago. Menses are currently monthly but +dysmenorrhea.Flow is moderate lasting 4-5 days. Katty Ledezma, [facility] [address], [place], [address], [place] [facility] 02/16/2021 14:31:27 03/29/2021 text/html Here today for bladder instillation #1. Roxie Vera thomas, [facility] 03/29/2021 13:14:01 OBGyn Episode Ob Episode Information Episode Created Date Number of Fetuses Patient Bloodtype Patient rh Status Prepregnancy Weight lbs Domestic Partner Domestic Partner Phone Father Name Eyelet Punch Operator Status 06/03/20 20 1 CLOSED Fetus Data First Name Last Name Admitted to NICU Weight (g) Sex Living Outcome Pediatric Complications Fetus ID Race Codes Race Delivery Type 3515.33 8 M Full Term [id number] Vaginal Delivery Jimmy Calculation Initial Jimmy Date Initial Exam Date Initial Exam Provider Initial Ultrasound Date Last Menstrual Period Date Ultra Sound Weeks Gestation 0 Eighteen To Twenty Week Jimmy Update Ultra Sound Date Fundal Height At Umbil Quickening Date Ultra Sound Latest Weeks Gestation Final Jimmy Confirmed By Final Jimmy Confirmed Date Final Jimmy Date Ultra Sound Latest Days Gestation 0 0 Menstrual History Last Menstrual Date Menses Monthly On Bcp Conception Prior Menses Frequency Hcg Plus Date Menarche Onset Age Delivery Information Delivery Date Delivery Type Labor Anesthesia Weeks Gestation Incision Type Labor Labor Length Hrs Delivered By Post Complications Tubal Sterilization Discharge Date Comments 0 pre-ecla m psia, cord around neck Discharge Information Feeding Method Contraceptive Method Maternal HG B and HCT Levels
--- OUTSIDE RECORDS SUMMARY | 2025-01-08 16:53 | XMS_ITS | Encounter Summary ---
Author Organization [facility] Address [address] [place] [address] Care Team Providers Care Tape Machine Tailer Name Role Phone Yvette Rowland Primary Care Provider [phone] Reason for Visit * Reason Onset Date Comments MEDICATION REFILL 09/12/2024 Encounter Details Date Type Department Care Team (Late st Contact Info) Description 09/12/2024 Refill [facility] - Internal Medicine [address] [place] [address] Esau Boykin Jr., MD [address] [place], [place] [address] [address] [place] [address] MEDICATION REFILL Social History Tobacco Use Types Packs/Day Years Used Date Smoking Tobacco: Former Cigarettes Alcohol Use Standard Drinks/Week Comments Yes 0 (1 standard drink = 0.6 oz pur e alcohol) PHQ-2 Answer Date Recorded Patient Health Questionnaire-2 Score 1 09/12/2024 Comments Unknown Sex and Gender Information Value Date Recorded Sex Assigned at Female 07/15/2024 11:45 AM BACK MAKER Legal Sex Female 12:41 PM BACK MAKER Gender Identity Female 07/15/2024 11:45 AM BACK MAKER Sexual Orientation Straight 07/15/2024 11 :45 AM BACK MAKER 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 Question Answer Date of Assessment Author Patient Health Questionnaire-2 Score 1 09/12/2024 10:18 AM CDT Mychart, Proce ss Support User * Little interest or pleasure in doing things Answer Date of Assessment Author Several days 09/12/2024 10:18 AM CDT Mychart, Process Support User * Feeling down, depressed, or hopeless Answer Date of Assessment Author Not at all 09/12/2024 10:18 AM CDT Mychart, Process Support User * Question Answer Date of Assessment Author Patient Health Questionnaire-9 Score 8 09/12/2024 10:18 AM CDT Mychart, Proce ss Support User * Trouble falling or staying asleep, or sleeping too much Answer Date of Assessment Author Not at all 09/12/2024 10:18 AM CDT Mychart, Process Support User * Feeling tired or having little energy Answer Date of Assessment Author Nearly every day 09/12/2024 10:18 AM CDT Mychart , Process Support User * Poor appetite or overeating Answer Date of Assessment Author Not at all 09/12/2024 10:18 AM CDT Mychart, Process Support User * Feeling bad about yourself - or that you are a failure or have let yourself or your family down Answer Date of Assessment Author Not at all 09/12/2024 10:18 AM CDT Mychart, Process Support User * Trouble concentrating on things, such as reading the newspaper or watching television Answer Date of Assessment Author Nearly every day 09/12/2024 10:18 AM CDT Mychart , Process Support User * Moving or speaking so slowly that other people could have noticed? Or the opposite - being so fidgety or restless that you have been moving around a lot more than usual. Answer Date of Assessment Author Several days 09/12/2024 10:18 AM CDT Mychart, Process Support User * Thoughts that you would be better off or hurting yourself in some way Answer Date of Assessment Author Not at all 09/12/2024 10:18 AM CDT Mychart, Process Support User * How difficult have these problems made it for you to do your work, take care of things at home, or get along with other people? Answer Date of Assessment Author Very difficult 09/12/2024 10:18 AM CDT [employer]ma[employer], Process Support User documented as of this encounter Plan of Treatment Not on file documented as of this encounter Visit Diagnoses Not on filedocumented in this encounter Care Teams Tape Machine Tailer Relationship Specialty Start Date End Date Yvette Rowland [address] [place] [address] PCP - General 07/03/24 documented as of this encounter
--- OUTSIDE RECORDS SUMMARY | 2025-01-08 16:53 | XMS_ITS | Data Portability ---
Author Organization [facility] Business e via [place], Main Office Address [address] [place] [address] Assessment No assessment recorded. Plan of Treatment Reminders Order Date Submit Date Provider Last Modified By Organization Details Last Modified Time Details Appointments None recorded. Lab vitamin B12 + folate, serum or blood 2022 023 [email or web address] [facility], [address] [place], [address], 3 10:51:33 TSH + free T4, serum 2022 023 [email or web address] [facility], [address] [place], [address], 3 10:51:32 T3, free, serum or plasma 2022 023 [email or web address] [facility], [address] [place], [address], 3 10:51:32 urinalysis complete, reflex culture 2022 023 MICHELET [facility], [address] [place], [address], 3 13:54:19 HbA1c (hemoglobin A1c), blood 2022 023 [email or web address] [facility], [address] [place], [address], 3 10:51:32 testosteron e, free + total, serum 2022 023 [email or web address] [facility], [address] [place], [address], 10:51:32 dhea-sulfat e, serum 2022 023 [facility], [address] [place], [address], 10:51:32 CMP, serum or plasma 2022 023 [email or web address] [facility], [address] [place], [address], 10:51:32 Referral endocrinolo gy referral 2022 023 [email or web address] Chel [place], [address] [facility], [place], [address], 11:53:53 Procedures None recorded. Surgeries None recorded. Imaging XR, kidney + ureter + bladder 2022 023 [email or web address] 4 [facility] ([facility]), [address] [place], [address], 11:39:40 Medication Orders cyanocobala min (vit B-12) 1,000 mcg/mL injection solution 2022 023 [id number], [address], [place], [address], 12:43:11 Tirosint 13 [address] capsule [address] [facility]/Pharmacy #[id number], [address], [place], [address], 12:42:30 cyanocobala min (vit B-12) 1,000 mcg/mL injection solution 2022 023 [facility]/Pharmacy #[id number], [address], [place], [address], 3 10:33:52 folic acid 1 mg tablet 2022 023 [id number], [address], [place], [address], 3 11:14:06 Macrobid 100 mg capsule 2022 023 [email or web address] [id number], [address], [place], [address], 3 11:22:20 Patient TargetsNo targets recorded. Patient InstructionsNo instructions recorded. 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 Referring Physician: Rey Roberts, Endocrinology, Encounter Date: 03/31/2023 Results Created Date Observation Date Name Description Value Unit Range Abnormal Flag Note LastModifiedBy Organization Detail LastModifiedTime 04/06/20 21 04/06/2021 urina lysis , dipst ick Leukocytes (reference range: negative jacqui/ l) Negati ve Not Available [facility], [address], 04/06/2021 15:44:58 04/06/20 21 04/06/2021 urina lysis , dipst ick Nitrite (reference rage: negative mg/dl) negati ve Not Available [facility], [address], 04/06/2021 15:44:58 04/06/2004/06/2021 urina lysis , dipst ick Urobilinogen (reference range: 0.2-1 mg/dl) 0.2 Not Available [facility]_[address], [address], 04/06/2021 15:44:58 04/06/2004/06/2021 urina lysis , dipst ick Protein (reference range: negative mg/dl) Negati ve Not Available [address], [address], 04/06/2021 15:44:58 04/06/2004/06/2021 urina lysis , dipst ick pH (reference range: 5-7) 7.0 Not Available [address], [address], 04/06/2021 15:44:58 04/06/2004/06/2021 urina lysis , dipst ick Blood (reference range: negative Alf/ l) Negati ve Not Available [address], [address], 04/06/2021 15:44:58 04/06/2004/06/2021 urina lysis , dipst ick Specific [place] (reference range: 1.005-1.030) 1.030 Not Available [address], [address], 04/06/2021 15:44:58 04/06/2004/06/2021 urina lysis , dipst ick Ketone (reference range: negative mg/dl) Negati ve Not Available [address], [address], 04/06/2021 15:44:58 04/06/2004/06/2021 urina lysis , dipst ick Bilirubin (reference range: negative mg/dl) Negati ve Not Available [facility] [address] [place] [address], [address], [address], 04/06/2021 15:44:58 04/06/2004/06/2021 urina lysis , dipst ick Glucose (reference range: negative mg/dl) Negati ve Not Available [address], [address], [address], 04/06/2021 15:44:58 04/06/2004/06/2021 urina lysis , dipst ick Appearance Clear Not Available [address], [address], [address], 04/06/2021 15:44:58 04/06/2004/06/2021 urina lysis , dipst ick Color Yellow Not Available [address], [address], [address], 04/06/2021 15:44:58 05/10/2005/11/2021 THYRO ID PEROX IDASE (TPO) AB thyroid peroxidase (tpo) Ab 12 IU/mL 0-34 Perfo rmed at: CB [facility] [place] [address] Lab Direc tor: Lakhwinder cleaning PhD, Phone : [phone] Not Available [facility] (Lab) [address] [place] [address], [address], 05/11/2021 09:12:03 05/10/20 21 05/10/2021 HEMOG LOBIN A1C HA1C 5.4 % 4.0-6. 0 Diabe arlyn Scree veronica Crite yolanda: <5.7% Consi stent with absen ce of diabe arlyn 5.7-6 .4% Consi stent with incre ased risk for diabe arlyn (pred iabet es) >OR=6 .5% Consi stent with diabe arlyn REFER ENCE: Diabe arlyn Care 2016, 39(Clarke ppl.1 ):s13 -s22 Not Available [facility] (Lab) [address] [place], [address], 05/10/2021 13:07:03 05/10/20 21 05/10/2021 TSH thyroid-stim ulating hormone 1.460 uIU/m L 0.465- 4.680 Not Available [facility] (Lab) [address] [place], [address], 05/10/2021 12:44:31 05/10/20 21 05/10/2021 T3 FREE free T3 3.3 pg/mL 2.77-5 .27 Not Available [facility] (Lab) [address] [place], [address], 05/10/2021 12:44:28 05/10/20 21 05/10/2021 T4 FREE free T4 0.95 NG/dL 0.78-2 .19 Not Available [facility] (Lab) [address] [place], [address], 05/10/2021 12:44:27 05/10/20 21 05/10/2021 COMPR EHENS KALA METAB OLIC PANEL agap 11.2 mmol/ L 14-22 low Not Available [facility] (Lab) [address] [place], [address], 05/10/2021 12:16:52 05/10/20 21 05/10/2021 COMPR EHENS KALA METAB OLIC PANEL sodium 139 mmol/ L 137-14 5 Not Available [facility] (Lab) [address] [place], [address], 05/10/2021 12:16:52 05/10/20 21 05/10/2021 COMPR EHENS KALA METAB OLIC PANEL potassium 4.2 mmol/ L 3.5-5. 1 Not Available [facility] (Lab) [address] [place], [address], 05/10/2021 12:16:52 05/10/20 21 05/10/2021 COMPR EHENS KALA METAB OLIC PANEL chloride 106 mmol/ L 98-107 Not Available [facility] (Lab) [address] [place], [address], 05/10/2021 12:16:52 05/10/20 21 05/10/2021 COMPR EHENS KALA METAB OLIC PANEL carbon dioxide 26 mmol/ L 22-30 Not Available [facility] (Lab) [address] [place], [address], 05/10/2021 12:16:52 05/10/20 21 05/10/2021 COMPR EHENS KALA METAB OLIC PANEL glucose 101 mg/dL 70-99 high Not Available [facility] (Lab) [address] [place], [address], 05/10/2021 12:16:52 05/10/20 21 05/10/2021 COMPR EHENS KALA METAB OLIC PANEL BUN 14 mg/dL 8-19 Not Available [facility] (Lab) [address] [place], [address], 05/10/2021 12:16:52 05/10/20 21 05/10/2021 COMPR EHENS KALA METAB OLIC PANEL creatinine 0.72 mg/dL 0.66-1 .25 Not Available [facility] (Lab) [address] [place], [address], 05/10/2021 12:16:52 05/10/20 21 05/10/2021 COMPR EHENS KALA METAB OLIC PANEL GFR >60 Refer ence Range : [place] GFR Healt hy Adult : >60 mL/mi n/1.7 3 m2 Chron ic Kidne y Disea se: 15-60 mL/mi n/1.7 3 m2 Kidne y Failu re: <15/m L/min /1.73 m2 www.n iddk. nih.g ov The MDRD study equat ion has not been valid ated in child afia <18 years of age; pregn ant women ; the elder ly >85 years of age; or in some racia l or ethni c subgr oups, such as Hispa nics. Outsi de the valid ated debbie eters , estim ated GFR is less accur ate, requi ring clini gavin judgm ent on a case- by-ca se basis . Clini gavin inter preta tion for other races and ages must be made by the clini fatuma. The MDRD study equat ion has not been valid ated for the evalu ation of serum creat inine relat ed to nutri julián l statu s or medic ation usage . For perso ns <18 years of age, a pedia tric GFR calcu lator is avail able on the [facility] websi te: https ://molly w.eusebia lauy.o rg/pr ofess ional s/kdo qi/gf r_cal culat or Not Available [facility] (Lab) [address] [place], [address], 05/10/2021 12:16:52 05/10/20 21 05/10/2021 COMPR EHENS KALA METAB OLIC PANEL alkaline phosphatase 93 U/L 38-126 Not Available [facility] (Lab) [address] [place], [address], 05/10/2021 12:16:52 05/10/20 21 05/10/2021 COMPR EHENS KALA METAB OLIC PANEL alanine aminotransfe rase 17 U/L 0-35 Not Available [facility] (Lab) [address] [place], [address], 05/10/2021 12:16:52 05/10/20 21 05/10/2021 COMPR EHENS KALA METAB OLIC PANEL aspartate aminotransfe rase 22 U/L 15-37 Not Available [facility] (Lab) [address] [place], [address], 05/10/2021 12:16:52 05/10/20 21 05/10/2021 COMPR EHENS KALA METAB OLIC PANEL bilirubin, total 0.20 mg/dL 0.20-1 .30 Not Available [facility] (Lab) [address] [place], [address], 05/10/2021 12:16:52 05/10/20 21 05/10/2021 COMPR EHENS KALA METAB OLIC PANEL calcium 9.8 mg/dL 8.4-10 .2 Not Available [facility] (Lab) [address] [place], [address], 05/10/2021 12:16:52 05/10/20 21 05/10/2021 COMPR EHENS KALA METAB OLIC PANEL total protein 7.1 g/dL 6.3-8. 2 Not Available [facility] (Lab) [address] [place], [address], 05/10/2021 12:16:52 05/10/20 21 05/10/2021 COMPR EHENS KALA METAB OLIC PANEL albumin 4.4 g/dL 3.4-5. 0 Not Available [facility] (Lab) [address] [place], [address], 05/10/2021 12:16:52 05/10/20 21 05/10/2021 COMPR EHENS KALA METAB OLIC PANEL globulin 2.7 g/dL 2.6-4. 2 Not Available [facility] (Lab) [address] [place], [address], 05/10/2021 12:16:52 05/10/20 21 05/10/2021 COMPR EHENS KALA METAB OLIC PANEL A/G ratio 1.6 ratio 1.0-2. 0 Not Available [facility] (Lab) [address] [place], [address], 05/10/2021 12:16:52 11/26/19 22 12/02/2021 TESTO STERO NE, FREE+ TOTAL LC/MS testosterone , total, lc/MS 30.0 NG/dL 10.0-5 5.0 Not Available [facility] (Lab) [address] [place], [address], 12/02/2021 16:12:39 11/26/19 22 12/02/2021 TESTO STERO NE, FREE+ TOTAL LC/MS testosterone , free 0.77 NG/dL 0.10-0 .85 Not Available [facility] (Lab) [address] [place], [address], 12/02/2021 16:12:39 11/26/19 22 12/02/2021 TESTO STERO NE, FREE+ TOTAL LC/MS % free testosterone 2.56 % 0.50-2 .80 Perfo rmed at: [place] [address] Lab Direc tor: Mayra morton MD, Phone : [phone] Not Available [facility] (Lab) [address] [place], [address], 12/02/2021 16:12:39 11/26/19 22 11/26/2021 INSUL IN insulin 3.5 uIU/m L 2.6-24 .9 Perfo rmed at: [facility] [address] [place] [address] Lab Direc tor: Lakhwinder cleaning PhD, Phone : [phone] Not Available [facility] (Lab) [address] [place], [address], 11/26/2021 09:27:56 11/26/19 22 11/26/2021 THYRO ID PEROX IDASE (TPO) AB thyroid peroxidase (tpo) Ab 12 IU/mL 0-34 [facility]med [facility] [address] [place] [address] Lab Direc tor: Lakhwinder cleaning PhD, Phone : [phone] Not Available [facility] (Lab) [address] [place], [address], 11/26/2021 08:18:27 11/26/19 22 11/26/2021 DHEA- SULFA TE DHEA-sulfate 149.0 ug/dL 84.8-3 78.0 Perfo rmed at: - [facility] n [address] [place] [address] Lab Direc tor: Lakhwinder cleaning PhD, Phone : [phone] Not Available [facility] (Lab) [address] [place], [address], 11/26/2021 08:18:25 11/26/19 22 11/25/2021 HEMOG LOBIN A1C HA1C 5.2 % 4.0-6. 0 Diabe arlyn Scree veronica Crite yolanda: <5.7% Consi stent with absen ce of diabe arlyn 5.7-6 .4% Consi stent with incre ased risk for diabe arlyn (pred iabet es) >OR=6 .5% Consi stent with diabe arlyn REFER ENCE: Diabe arlyn Care 2016, 39(Clarke ppl.1 ):s13 -s22 Not Available [facility] (Lab) [address] [place], [address], 11/25/2021 13:12:08 11/26/19 22 11/25/2021 TSH thyroid-stim ulating hormone 0.795 uIU/m L 0.465- 4.680 Not Available [facility] (Lab) [address] [place], [address], 11/25/2021 12:06:39 11/26/19 22 11/25/2021 T3 FREE free T3 3.7 pg/mL 2.77-5 .27 Not Available [facility] (Lab) [address] [place], [address], 11/25/2021 11:53:38 11/26/19 22 11/25/2021 T4 FREE free T4 1.17 NG/dL 0.78-2 .19 Not Available [facility] (Lab) [address] [place], [address], 11/25/2021 11:53:31 08/15/19 23 08/19/2022 DHEA- SULFA TE DHEA-sulfate 190.0 ug/dL 84.8-3 78.0 Perfo rmed at: - [address] [address] Lab Direc tor: Lakhwinder cleaning PhD, Phone : [phone] Perfo rmed at: [facility] [address] [address] Lab Direc tor: Lakhwinder cleaning PhD, Phone : [phone] Not Available [facility] (Lab) [address] [place], [address], 08/19/2022 08:15:12 08/15/1908/18/2022 TESTO STERO NE, FREE+ TOTAL LC/MS testosterone , total, lc/MS 37.2 NG/dL 10.0-5 5.0 Not Available [facility] (Lab) [address] [place], [address], 08/18/2022 12:12:05 08/15/19 23 08/18/2022 TESTO STERO NE, FREE+ TOTAL LC/MS testosterone , free 0.45 NG/dL 0.10-0 .85 Not Available [facility] (Lab) [address] [place], [address], 08/18/2022 12:12:05 08/15/19 23 08/18/2022 TESTO STERO NE, FREE+ TOTAL LC/MS % free testosterone 1.22 % 0.50-2 .80 Perfo rmed at: [facility] [place] [address] [facility] , [place] , [place] [address] Lab Direc tor: Mayra morton MD, Phone : [phone] Not Available [facility] (Lab) [address] [place], [address], 08/18/2022 12:12:05 08/15/19 23 08/16/2022 THYRO ID PEROX IDASE (TPO) AB thyroid peroxidase (tpo) Ab 26 IU/mL 0-34 Perfo rmed at: [facility] [address] [place] [address] Lab Direc tor: Lakhwinder cleaning PhD, Phone : [phone] Not Available [facility] (Lab) [address] [place], [address], 08/16/2022 13:10:28 08/15/19 23 08/16/2022 INSUL IN insulin 4.8 uIU/m L 2.6-24 .9 Perfo rmed at: [facility] [address] [place] [address] Lab Direc tor: Lakhwinder cleaning PhD, Phone : [phone] Not Available [facility] (Lab) [address] [place], [address], 08/16/2022 10:12:21 08/15/19 23 08/15/2022 HEMOG LOBIN A1C HA1C 5.3 % 4.0-6. 0 Diabe arlyn Scree veronica Crite yolanda: <5.7% Consi stent with absen ce of diabe arlyn 5.7-6 .4% Consi stent with incre ased risk for diabe arlyn (pred iabet es) >OR=6 .5% Consi stent with diabe arlyn REFER ENCE: Diabe arlyn Care 2016, 39(Clarke ppl.1 ):s13 -s22 Not Available [facility] (Lab) [address] [place], [address], 08/15/2022 12:56:49 08/15/19 23 08/15/2022 FOLAT E, SERUM /PLAS MA folate 4.92 NG/mL 2.76-2 0.0 Not Available [facility] (Lab) [address] [place], [address], 08/15/2022 12:39:21 08/15/19 23 08/15/2022 VITAM IN B12 (CAMPOS AUBREE ) vb12 321 pg/mL 239-93 1 Not Available [facility] (Lab) [address] [place], [address], 08/15/2022 12:39:16 08/15/19 23 08/15/2022 TSH thyroid-stim ulating hormone 0.612 uIU/m L 0.465- 4.680 Not Available [facility] (Lab) [address] [place], [address], 08/15/2022 10:15:15 08/15/19 23 08/15/2022 T3 FREE free T3 3.3 pg/mL 2.77-5 .27 Not Available [facility] (Lab) [address] [place], [address], 08/15/2022 10:07:57 08/15/19 23 08/15/2022 T4 FREE free T4 1.14 NG/dL 0.78-2 .19 Not Available [facility] (Lab) [address] [place], [address], 08/15/2022 10:07:53 08/15/19 23 08/15/2022 LIPID PANEL cholesterol 195 mg/dL 140-19 9 NIH RADHA NSUS RECOM MENDA TION FOR MIRANDA STERO L: ADULT CHILD LOW RISK: <200 <170 BORDE RLINE : <200- 239 ----- HIGH RISK: >240 >200 Not Available [facility] (Lab) [address] [place], [address], 08/15/2022 09:48:05 08/15/19 23 08/15/2022 LIPID PANEL triglyceride s 100 mg/dL 0-150 NIH RADHA NSUS REPOR T RECOM MENDA TION FOR TRIGL YCERI MARA: ADULT CHILD LOW RISK: <150 ----- BODER LINE: 150-1 99 ----- HIGH RISK: >200 ----- Not Available [facility] (Lab) [address] [place], [address], 08/15/2022 09:48:05 08/15/19 23 08/15/2022 LIPID PANEL HDL cholesterol 44 mg/dL 40- Not Available [facility] (Lab) [address] [place], [address], 08/15/2022 09:48:05 08/15/19 23 08/15/2022 LIPID PANEL LDL cholesterol, calculated 131 mg/dL 0-130 high NIH RADHA NSUS REPOR T RECOM MENDA TIONS FOR LDL: ADULT CHILD LOW RISK <130 <110 (OPTI MAL LDL) <100 ----- BORDE RLINE : 130-1 59 ----- HIGH RISK: >160 >130 A TRIGL YCERI DE RESUL T >400 INVAL IDATE S THE CALCU LATIO N FOR LDL FRACT IONAT ION - THE LDL RESUL T WILL NOT BE REPOR EN. Not Available [facility] (Lab) [address] [place], [address], 08/15/2022 09:48:05 08/15/19 23 08/15/2022 COMPR EHENS KALA METAB OLIC PANEL BUN 11 mg/dL 8-19 Not Available [facility] (Lab) [address] [place], [address], 08/15/2022 09:48:02 08/15/19 23 08/15/2022 COMPR EHENS KALA METAB OLIC PANEL sodium 138 mmol/ L 137-14 5 Not Available [facility] (Lab) [address] [place], [address], 08/15/2022 09:48:02 08/15/19 23 08/15/2022 COMPR EHENS KALA METAB OLIC PANEL potassium 3.9 mmol/ L 3.5-5. 1 Not Available [facility] (Lab) [address] [place], [address], 08/15/2022 09:48:02 08/15/19 23 08/15/2022 COMPR EHENS KALA METAB OLIC PANEL chloride 108 mmol/ L 98-107 high Not Available [facility] (Lab) [address] [place], [address], 08/15/2022 09:48:02 08/15/19 23 08/15/2022 COMPR EHENS KALA METAB OLIC PANEL carbon dioxide 23 mmol/ L 22-30 Not Available [facility] (Lab) [address] [place], [address], 08/15/2022 09:48:02 08/15/19 23 08/15/2022 COMPR EHENS KALA METAB OLIC PANEL anion gap 10.9 mmol/ L 14-22 low Not Available [facility] (Lab) [address] [place], [address], 08/15/2022 09:48:02 08/15/19 23 08/15/2022 COMPR EHENS KALA METAB OLIC PANEL glucose 106 mg/dL 70-99 high Not Available [facility] (Lab) [address] [place], [address], 08/15/2022 09:48:02 08/15/19 23 08/15/2022 COMPR EHENS KALA METAB OLIC PANEL creatinine 0.68 mg/dL 0.66-1 .25 Not Available [facility] (Lab) [address] [place], [address], 08/15/2022 09:48:02 08/15/19 23 08/15/2022 COMPR EHENS KALA METAB OLIC PANEL GFR >60 Refer ence Range : [place] GFR Healt hy Adult : >60 mL/mi n/1.7 3 m2 Chron ic Kidne y Disea se: 15-60 mL/mi n/1.7 3 m2 Kidne y Failu re: <15/m L/min /1.73 m2 www.n iddk. nih.g ov The MDRD study equat ion has not been valid ated in child afia <18 years of age; pregn ant women ; the elder ly >85 years of age; or in some racia l or ethni c subgr oups, such as Hispa nics. Outsi de the valid ated debbie eters , estim ated GFR is less accur ate, requi ring clini gavin judgm ent on a case- by-ca se basis . Clini gavin inter preta tion for other races and ages must be made by the clini fatuma. The MDRD study equat ion has not been valid ated for the evalu ation of serum creat inine relat ed to nutri julián l statu s or medic ation usage . For perso ns <18 years of age, a pedia tric GFR calcu lator is avail able on the [facility] websi te: https ://molly vazquez.nolan luque/audra pegueroess crowal s/kdo qi/gf r_cal culat or Not Available [facility] (Lab) [address] [place], [address], 08/15/2022 09:48:02 08/15/1908/15/2022 COMPR EHENS KALA METAB OLIC PANEL alkaline phosphatase 83 U/L 38-126 Not Available [facility] (Lab) [address] [place], [address], 08/15/2022 09:48:02 08/15/19 23 08/15/2022 COMPR EHENS KALA METAB OLIC PANEL alanine aminotransfe rase 17 U/L 0-35 Not Available [facility] (Lab) [address] [place], [address], 08/15/2022 09:48:02 08/15/19 23 08/15/2022 COMPR EHENS KALA METAB OLIC PANEL aspartate aminotransfe rase 24 U/L 15-37 Not Available [facility] (Lab) [address] [place], [address], 08/15/2022 09:48:02 08/15/19 23 08/15/2022 COMPR EHENS KALA METAB OLIC PANEL bilirubin, total 0.50 mg/dL 0.20-1 .30 Not Available [facility] (Lab) [address] [place], [address], 08/15/2022 09:48:02 08/15/19 23 08/15/2022 COMPR EHENS KALA METAB OLIC PANEL calcium 9.1 mg/dL 8.4-10 .2 Not Available [facility] (Lab) [address] [place], [address], 08/15/2022 09:48:02 08/15/19 23 08/15/2022 COMPR EHENS KALA METAB OLIC PANEL total protein 7.8 g/dL 6.3-8. 2 Not Available [facility] (Lab) [address] [place], [address], 08/15/2022 09:48:02 08/15/19 23 08/15/2022 COMPR EHENS KALA METAB OLIC PANEL albumin 4.6 g/dL 3.4-5. 0 Not Available [facility] (Lab) [address] [place], [address], 08/15/2022 09:48:02 08/15/19 23 08/15/2022 COMPR EHENS KALA METAB OLIC PANEL globulin 3.2 g/dL 2.6-4. 2 Not Available [facility] (Lab) [address] [place], [address], 08/15/2022 09:48:02 08/15/1918 0808/15/2022 COMPR EHENS KALA METAB OLIC PANEL A/G ratio 1.4 ratio 1.0-2. 0 Not Available [facility] (Lab) [address] [place], [address], 08/15/2022 09:48:02 08/31/19 23 08/30/2022 URINA LYSIS COMPL ETE/I RIS W/RFX color LIGHT- YELLOW Not Available [facility] (Lab) [address] [place], [address], 08/30/2022 09:42:25 08/31/19 23 08/30/2022 URINA LYSIS COMPL ETE/I RIS W/RFX appear TURBID abnormal Not Available [facility] (Lab) [address] [facility], [address], 08/30/2022 09:42:25 08/31/19 23 08/30/2022 URINA LYSIS COMPL ETE/I RIS W/RFX specific gravity 1.022 1.001- 1.030 Not Available [facility] (Lab) [address] [place], [address], 08/30/2022 09:42:25 08/31/19 23 08/30/2022 URINA LYSIS COMPL ETE/I RIS W/RFX pH 6.0 pH_un its 5.0-9. 0 Not Available [facility] (Lab) [address] [place], [address], 08/30/2022 09:42:25 08/31/19 23 08/30/2022 URINA LYSIS COMPL ETE/I RIS W/RFX leukocytes NEGATI VE jacqui/u L negati ve- Not Available [facility] (Lab) [address] [place], [address], 08/30/2022 09:42:25 08/31/19 23 08/30/2022 URINA LYSIS COMPL ETE/I RIS W/RFX nitrite NEGATI VE negati ve- Not Available [facility] (Lab) [address] [place], [address], 08/30/2022 09:42:25 08/31/19 23 08/30/2022 URINA LYSIS COMPL ETE/I RIS W/RFX protein NEGATI VE mg/dL negati ve- Not Available [facility] (Lab) [address] [place], [address], 08/30/2022 09:42:25 08/31/19 23 08/30/2022 URINA LYSIS COMPL ETE/I RIS W/RFX glucose NORMAL mg/dL normal - Not Available [facility] (Lab) [address] [place], [address], 08/30/2022 09:42:25 08/31/19 23 08/30/2022 URINA LYSIS COMPL ETE/I RIS W/RFX ketones NEGATI VE mg/dL negati ve- Not Available [facility] (Lab) [address] [place], [address], 08/30/2022 09:42:25 08/31/19 23 08/30/2022 URINA LYSIS COMPL ETE/I RIS W/RFX urobilinogen NORMAL mg/dL normal - Not Available [facility] (Lab) [address] [place], [address], 08/30/2022 09:42:25 08/31/19 23 08/30/2022 URINA LYSIS COMPL ETE/I RIS W/RFX bilirubin NEGATI VE mg/dL negati ve- Not Available [facility] (Lab) [address] [place], [address], 08/30/2022 09:42:25 08/31/19 23 08/30/2022 URINA LYSIS COMPL ETE/I RIS W/RFX blood 0.03 mg/dL negati ve- abnormal Not Available [facility] (Lab) [address] [place], [address], 08/30/2022 09:42:25 08/31/1908/30/2022 URINA LYSIS COMPL ETE/I RIS W/RFX white blood cells 0-8 /i??h pfi?? 0-8 Not Available [facility] (Lab) [address] [place], [address], 08/30/2022 09:42:25 08/31/19 23 08/30/2022 URINA LYSIS COMPL ETE/I RIS W/RFX red blood cells 0-4 /i??h pfi?? 0-4 Not Available [facility] (Lab) [address] [place], [address], 08/30/2022 09:42:25 08/31/19 23 08/30/2022 URINA LYSIS COMPL ETE/I RIS W/RFX bacteria NONE Not Available [facility] (Lab) [address] [place], [address], 08/30/2022 09:42:25 08/31/1908/30/2022 URINA LYSIS COMPL ETE/I RIS W/RFX mucous FEW /i??l pfi?? abnormal Not Available [facility] (Lab) [address] [place], [address], 08/30/2022 09:42:25 08/31/19 23 08/30/2022 URINA LYSIS COMPL ETE/I RIS W/RFX squamous epithelial PACKED FIELD /i??l pfi?? abnormal Not Available [facility] (Lab) [address] [place], [address], 08/30/2022 09:42:25 03/07/20 23 03/07/2023 URINA LYSIS COMPL ETE/I RIS W/RFX color YELLOW Not Available [facility] (Lab) [address] [place], [address], 03/07/2023 10:58:16 03/07/20 23 03/07/2023 URINA LYSIS COMPL ETE/I RIS W/RFX appear EX.TUR BID Not Available [facility] (Lab) [address] [place], [address], 03/07/2023 10:58:16 03/07/20 23 03/07/2023 URINA LYSIS COMPL ETE/I RIS W/RFX specific gravity 1.032 1.001- 1.030 high Not Available [facility] (Lab) [address] [place], [address], 03/07/2023 10:58:16 03/07/20 23 03/07/2023 URINA LYSIS COMPL ETE/I RIS W/RFX pH 6.0 pH_un its 5.0-9. 0 Not Available [facility] (Lab) [address] [place], [address], 03/07/2023 10:58:16 03/07/20 23 03/07/2023 URINA LYSIS COMPL ETE/I RIS W/RFX leukocytes 25 jacqui/u L negati ve- abnormal Not Available [facility] (Lab) [address] [place], [address], 03/07/2023 10:58:16 03/07/20 23 03/07/2023 URINA LYSIS COMPL ETE/I RIS W/RFX nitrite NEGATI VE negati ve- Not Available [facility] (Lab) [address] [place], [address], 03/07/2023 10:58:16 03/07/20 23 03/07/2023 URINA LYSIS COMPL ETE/I RIS W/RFX protein 10 mg/dL negati ve- abnormal Not Available [facility] (Lab) [address] [place], [address], 03/07/2023 10:58:16 03/07/20 23 03/07/2023 URINA LYSIS COMPL ETE/I RIS W/RFX glucose NORMAL mg/dL normal - Not Available [facility] (Lab) [address] [place], [address], 03/07/2023 10:58:16 03/07/20 23 03/07/2023 URINA LYSIS COMPL ETE/I RIS W/RFX ketones NEGATI VE mg/dL negati ve- Not Available [facility] (Lab) [address] [place], [address], 03/07/2023 10:58:16 03/07/2003/07/2023 URINA LYSIS COMPL ETE/I RIS W/RFX urobilinogen NORMAL mg/dL normal - Not Available [facility] (Lab) [address] [place], [address], 03/07/2023 10:58:16 03/07/20 23 03/07/2023 URINA LYSIS COMPL ETE/I RIS W/RFX bilirubin NEGATI VE mg/dL negati ve- Not Available [facility] (Lab) [address] [place], [address], 03/07/2023 10:58:16 03/07/20 23 03/07/2023 URINA LYSIS COMPL ETE/I RIS W/RFX blood NEGATI VE mg/dL negati ve- Not Available [facility] (Lab) [address] [place], [address], 03/07/2023 10:58:16 03/07/20 23 03/07/2023 URINA LYSIS COMPL ETE/I RIS W/RFX white blood cells 0-8 /i??h pfi?? 0-8 Not Available [facility] (Lab) [address] [place], [address], 03/07/2023 10:58:16 03/07/20 23 03/07/2023 URINA LYSIS COMPL ETE/I RIS W/RFX red blood cells 0-4 /i??h pfi?? 0-4 Not Available [facility] (Lab) [address] [place], [address], 03/07/2023 10:58:16 03/07/20 23 03/07/2023 URINA LYSIS COMPL ETE/I RIS W/RFX bacteria NONE Not Available [facility] (Lab) [address] [place], [address], 03/07/2023 10:58:16 03/07/20 23 03/07/2023 URINA LYSIS COMPL ETE/I RIS W/RFX mucous MODERA TE /i??l pfi?? abnormal Not Available [facility] (Lab) [address] [place], [address], 03/07/2023 10:58:16 03/07/20 23 03/07/2023 URINA LYSIS COMPL ETE/I RIS W/RFX squamous epithelial PACKED FIELD /i??l pfi?? abnormal Not Available [facility] (Lab) [address] [place], [address], 03/07/2023 10:58:16 03/07/20 23 03/07/2023 COMPR EHENS KALA METAB OLIC PANEL sodium 138 mmol/ L 137-14 5 Not Available [facility] (Lab) [address] [place], [address], 03/07/2023 11:40:07 03/07/20 23 03/07/2023 COMPR EHENS KALA METAB OLIC PANEL potassium 4.2 mmol/ L 3.5-5. 1 Not Available [facility] (Lab) [address] [place], [address], 03/07/2023 11:40:07 03/07/20 23 03/07/2023 COMPR EHENS KALA METAB OLIC PANEL chloride 105 mmol/ L 98-107 Not Available [facility] (Lab) [address] [place], [address], 03/07/2023 11:40:07 03/07/20 23 03/07/2023 COMPR EHENS KALA METAB OLIC PANEL carbon dioxide 26 mmol/ L 22-30 Not Available [facility] (Lab) [address] [place], [address], 03/07/2023 11:40:07 03/07/20 23 03/07/2023 COMPR EHENS KALA METAB OLIC PANEL anion gap 11.2 mmol/ L 14-22 low Not Available [facility] (Lab) [address] [place], [address], 03/07/2023 11:40:07 03/07/20 23 03/07/2023 COMPR EHENS KALA METAB OLIC PANEL glucose 97 mg/dL 70-99 Not Available [facility] (Lab) [address] [place], [address], 03/07/2023 11:40:07 03/07/20 23 03/07/2023 COMPR EHENS KALA METAB OLIC PANEL BUN 11 mg/dL 8-19 Not Available [facility] (Lab) [address] [place], [address], 03/07/2023 11:40:07 03/07/20 23 03/07/2023 COMPR EHENS KALA METAB OLIC PANEL creatinine 0.69 mg/dL 0.66-1 .25 Not Available [facility] (Lab) [address] [place], [address], 03/07/2023 11:40:07 03/07/20 23 03/07/2023 COMPR EHENS KALA METAB OLIC PANEL GFR >60 Refer ence Range : [place] ge GFR Healt hy Adult : >60 mL/mi n/1.7 3 m2 Chron ic Kidne y Disea se: 15-60 mL/mi n/1.7 3 m2 Kidne y Failu re: <15/m L/min /1.73 m2 www.n iddk. nih.g ov The MDRD study equat ion has not been valid ated in child afia <18 years of age; pregn ant women ; the elder ly >85 years of age; or in some racia l or ethni c subgr oups, such as Hispa nics. Outsi de the valid ated debbie eters , estim ated GFR is less accur ate, requi ring clini gavin judgm ent on a case- by-ca se basis . Clini gavin inter preta tion for other races and ages must be made by the clini fatuma. The MDRD study equat ion has not been valid ated for the evalu ation of serum creat inine relat ed to nutri julián l statu s or medic ation usage . For perso ns <18 years of age, a pedia tric GFR calcu lator is avail able on the [facility] websi te: https ://molly vazquez.nolan rg/pr ofess ional s/kdo qi/gf r_cal culat or Not Available [facility] (Lab) [address] [place], [address], 03/07/2023 11:40:07 03/07/20 23 03/07/2023 COMPR EHENS KALA METAB OLIC PANEL alkaline phosphatase 73 U/L 38-126 Not Available [facility] (Lab) [address] [place], [address], 03/07/2023 11:40:07 03/07/20 23 03/07/2023 COMPR EHENS KALA METAB OLIC PANEL alanine aminotransfe rase 21 U/L 0-35 Not Available [facility] (Lab) [address] [place], [address], 03/07/2023 11:40:07 03/07/20 23 03/07/2023 COMPR EHENS KALA METAB OLIC PANEL aspartate aminotransfe rase 26 U/L 15-37 Not Available [facility] (Lab) [address] [place], [address], 03/07/2023 11:40:07 03/07/20 23 03/07/2023 COMPR EHENS KALA METAB OLIC PANEL bilirubin, total 0.20 mg/dL 0.20-1 .30 Not Available [facility] (Lab) [address] [place], [address], 03/07/2023 11:40:07 03/07/20 23 03/07/2023 COMPR EHENS KALA METAB OLIC PANEL calcium 9.2 mg/dL 8.4-10 .2 Not Available [facility] (Lab) [address] [place], [address], 03/07/2023 11:40:07 03/07/20 23 03/07/2023 COMPR EHENS KALA METAB OLIC PANEL total protein 7.6 g/dL 6.3-8. 2 Not Available [facility] (Lab) [address] [place], [address], 03/07/2023 11:40:07 03/07/20 23 03/07/2023 COMPR EHENS KALA METAB OLIC PANEL albumin 4.4 g/dL 3.4-5. 0 Not Available [facility] (Lab) [address] [place], [address], 03/07/2023 11:40:07 03/07/20 23 03/07/2023 COMPR EHENS KALA METAB OLIC PANEL globulin 3.2 g/dL 2.6-4. 2 Not Available [facility] (Lab) [address] [place], [address], 03/07/2023 11:40:07 03/07/20 23 03/07/2023 COMPR EHENS KALA METAB OLIC PANEL A/G ratio 1.4 ratio 1.0-2. 0 Not Available [facility] (Lab) [address] [place], [address], 03/07/2023 11:40:07 03/07/20 23 03/07/2023 T3 FREE free T3 3.0 pg/mL 2.77-5 .27 Not Available [facility] (Lab) [address] [place], [address], 03/07/2023 11:40:28 03/07/20 23 03/07/2023 T4 FREE free T4 0.98 NG/dL 0.78-2 .19 Not Available [facility] (Lab) [address] [place], [address], 03/07/2023 11:40:39 03/07/2003/07/2023 TSH thyroid-stim ulating hormone 1.040 uIU/m L 0.465- 4.680 Not Available [facility] (Lab) [address] [place], [address], 03/07/2023 12:09:25 03/07/2003/07/2023 VITAM IN B12 (CAMPOS AUBREE ) vb12 >1000 pg/mL 239-93 1 high Not Available [facility] (Lab) [address] [place], [address], 03/07/2023 13:01:33 03/07/20 23 03/07/2023 FOLAT E, SERUM /PLAS MA folate 7.39 NG/mL 2.76-2 0.0 Not Available [facility] (Lab) [address] [place], [address], 03/07/2023 13:01:35 03/07/20 23 03/07/2023 HEMOG LOBIN A1C HA1C 5.3 % 4.0-6. 0 Diabe arlyn Scree veronica Crite yolanda: <5.7% Consi stent with absen ce of diabe arlyn 5.7-6 .4% Consi stent with incre ased risk for diabe arlyn (pred iabet es) >OR=6 .5% Consi stent with diabe arlyn REFER ENCE: Diabe arlyn Care 2016, 39(Clarke ppl.1 ):s13 -s22 Not Available [facility] (Lab) [address] [place], [address], 03/07/2023 14:24:18 03/07/20 23 03/08/2023 TESTO STERO NE,TO DIEGO-L ABCOR P testosterone 33 NG/dL 8-60 Perfo rmed at: CB [facility] [address] [place] [address] Lab Direc tor: Lakhwinder cleaning PhD, Phone : [phone] Not Available [facility] (Lab) [address] [place], [address], 03/08/2023 10:12:59 03/07/20 23 03/10/2023 DHEA, SERUM DHEA/dehydro epiandostero ne 517 NG/dL 31-701 Perfo rmed at: [facility] Michelle proctor [address] [facility] [place] [address] Lab Direc tor: Mayra morton MD, Phone : [phone] Not Available [facility] (Lab) [address] [place], [address], 03/10/2023 20:08:35 11/27/19 22 11/25/2021 US, thyro id No observ ation record ed. [id number] [facility] Add On Lab Orders [address] [place], [address], 08/24/2022 02:48:33 11/27/19 22 11/25/2021 US, head + neck, soft tissu e [facility] [address] [place] [address] Patien t Name: CELESTE SHORT Access ion #: [id number] Sex: F : 1989 9 Locati on: [facility]OP Attend ing Physic teofilo: REY ROBERTS Orderi ng Physic teofilo: REY ROBERTS Exam Date: 11/26/19 2:01 PM Exam Name: US NECK HEAD SOFT TISSUE Admitt ing Diagno sis(es ): RADIOL OGY REPORT - FINAL EXAM: US NECK HEAD SOFT TISSUE HISTOR Y: goiter COMPAR DIAZ: None. TECHNI QUE: Ultras ound evalua tion of the thyroi d gland was perfor med. FINDIN GS: Right thyroi d lobe: The right lobe of the thyroi d gland measur es 4.8 x 1.3 x 1 point cm. The thyroi d parenc hyma is homoge neous withou t solid nodule s or cystic lesion s. No abnorm al color Dopple r blood flow or suspic ious calcif icatio ns. Left thyroi d lobe: The left lobe of the thyroi d gland measur es 4.3 x 1.1 x Page [address] [place] [address] [facility] Name: CELESTE SHORT Access ion #: [id number] Sex: F : 1989 9 Exam Date: 11/26/19 2:01 PM Exam Name: US NECK HEAD SOFT TISSUE Admitt ing Diagno sis(es ): 1.2 cm. The thyroi d parenc hyma is homoge neous withou t solid nodule s or cystic lesion s. No abnorm al color Dopple r blood flow or suspic ious calcif icatio ns. Isthmu s: The thyroi d isthmu s measur es 0.25 mm in width. The thyroi d parenc hyma is homoge neous withou t solid nodule s or cystic lesion s. No abnorm al color Dopple r blood flow or suspic ious calcif icatio ns. IMPRES BLAKE: No nodule s visual ized. No recomm endati ons for follow up. Create d and electr onical ly signed by: Timur casanova MD Signed Date: 11/27/19 12:31 PM (CT) Dictat ed by: Timur casanova MD (CT) (CT) Page 2 of 2 [id number] [facility] (Imaging) [address], [place], [address], 08/24/2022 02:48:33 08/31/1908/30/2022 XR, abdom en, 1 view [facility] [address] [place] [address] Patien t Name: CELESTE SHORT Access ion #: [id number] Sex: F : 1989 7 Locati on: [facility] Attend ing Physic teofilo: REY ROBERTS Orderi ng Physic teofilo: REY ROBERTS Exam Date: 08/31/19 7:45 AM Exam Name: XR ABDOME N SINGLE AP/KUB Admitt ing Diagno sis(es ): RADIOL OGY REPORT - FINAL EXAM: XR ABDOME N SINGLE AP/KUB HISTOR Y: UNSPEC IFIED ABDOMI NAL PAIN COMPAR DIAZ: None availa ble. TECHNI QUE: AP views of the abdome n were perfor med. FINDIN GS: Examin ation of the abdome n in supine positi on reveal s a normal bowel gas patter n withou t radiog raphic eviden ce of mechan ical bowel obstru ction. There is no eviden ce of abnorm al calcif icatio n. The liver and spleen are not enlarg ed. No air is apprec iated in the biliar y tree. Cholec ystect tiana clips noted. Page 1 of 2 [facility] Patien t Name: CELESTE SHORT Access ion #: [id number] Sex: F : 1989 7 Exam Date: 08/31/19 7:45 AM Exam Name: XR ABDOME N SINGLE AP/KUB Admitt ing Diagno sis(es ): IMPRES BLAKE: No radiog raphic eviden ce of abdomi nal diseas e. Create d and electr onical ly signed by: Timur casanova MD Signed Date: 08/31/19 11:58 AM (CT) Dictat ed by: Timur casanova MD (CT) (CT) Page 2 of 2 [email or web address] [facility] (Imaging) [address] [place], [address], 08/31/2022 17:00:19 Result Notes Documentation Provider Name and Address Organization Details Recorded Time Xr, Abdomen, 1 View : [facility] [address] [place] [address] Patient Name: CELESTE SHORT Sex: F : 1990 Location: [facility] Attending Physician: REY ROBERTS Ordering Physician: REY ROBERTS Exam Date: 08/30/2022 7:45 AM Exam Name: XR ABDOMEN SINGLE AP/KUB Admitting Diagnosis(es): RADIOLOGY REPORT - FINAL EXAM: XR ABDOMEN SINGLE AP/KUB HISTORY: UNSPECIFIED ABDOMINAL PAIN COMPARISON: None available. TECHNIQUE: AP views of the abdomen were performed. FINDINGS: Examination of the abdomen in supine position reveals a normal bowel gas pattern without radiographic evidence of mechanical bowel obstruction. There is no evidence of abnormal calcification. The liver and spleen are not enlarged. No air is appreciated in the biliary tree. Cholecystectomy clips noted. Page 1 of 2 [facility] Patient Name: CELESTE SHORT Sex: F : 1990 Exam Date: 08/30/2022 7:45 AM Exam Name: XR ABDOMEN SINGLE AP/KUB Admitting Diagnosis(es): IMPRESSION: No radiographic evidence of abdominal disease. Created and electronically signed by: Timur Rainey MD Signed Date: 08/30/2022 11:58 AM (CT) Dictated by: Timur Rainey MD (CT) (CT) Page 2 of 2 GENNA Hernandez, [place] [facility] 08/31/2022 17:00:19 Problems Name Problem SNOMED Code Status Onset Date Resolution Date Notes Provider Name and Address Organization Details Recorded Time Endometrio sis (clinical) 974709442 Active Not Available [facility] 3 02:41:54 Disorder of thyroid gland 21520754 Active Not Available [facility] 3 02:41:54 Anxiety disorder 423358294 Active Not Available [facility] 3 02:41:54 Chronic interstiti al cystitis 199549513 Active Not Available [facility] 3 02:41:54 Ronna thyroiditi s 59431564 Active 2021 Not Available [facility] 3 02:41:54 Gastroesop hageal reflux disease 511434764 Active Not Available [facility] 3 02:41:54 Polycystic ovary syndrome 903814817 Active 2021 Not Available [facility] 3 02:41:54 Clay's neuroma of right foot 2509717371648 08 Active 2020 Not Available [facility] 3 02:41:54 Pain in right foot 1221889130340 07 Active 2020 Not Available [facility] 3 02:41:54 Depressive disorder 28297332 Active Not Available [facility] 3 02:41:55 Hypertensi ve disorder 01081724 Active Not Available [facility] 3 02:41:55 Impaired fasting glycemia 932794701 Active 2021 Not Available [facility] 3 02:41:55 Closed fracture of base of metacarpal bone other than first metacarpal 62425798 Active Not Available [facility] 3 02:41:55 Fatigue 19483140 Active 2021 Not Available [facility] 3 02:41:55 Seizure 19048455 Active Not Available [facility] 3 02:41:55 Left flank pain 617876455 Active 2022 Rey Roberts MD [address] [place] [address], [place] [address], [place], [address] , [facility] 3 10:28:45 Vitamin B12 deficiency (non anemic) 64006921 Active 2022 Rey Roberts MD [address] 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 Procedures Surgical History Date Name Laterality Status Provider Name and Address Organization Details Recorded Time 09/23/19 22 Appendectomy completed Not Available [facility] 08/24/2022 02:37:09 laparoscopic laser destruction of endometriosis completed Not Available [facility] 08/24/2022 02:37:09 Cholecystectomy completed Not Available [facility] 08/24/2022 02:37:09 Hernia Surgery completed Not Available [facility] 08/24/2022 02:37:09 Imaging Results None recorded. Procedure Notes None recorded. Medical Equipment None Reported. Allergies Allergen ID Allergen Name Allergen Category Reaction Reaction Severity Criticality Documentation Date Start Date Code Code System Note Provider Name and Address Organization Details Recorded Time 3769 latex environme nt,medica tion Not available Not available Not available 08/24/2022 74113 91 RxNorm Not Available [facility] 3 02:48:08 3770 Keflex medicatio n Not available Not available Not available 08/24/2022 37434 7 RxNorm nause a and vomit ing Not Available [facility] 3 02:48:08 Medications Name Sig Start Date Stop Date Status Note LastModified by Organization Details LastModified Time quetiapine 25 mg tablet 08/26 completed Not Available Not Available Not Available celecoxib 200 mg capsule 05/11 completed Not Available Not Available Not Available cyclobenzap rine 10 mg tablet TAKE 1 TABLET BY MOUTH AT BEDTIME NEEDED FOR CHRONIC PAIN 30 active Not Available Not Available No t Available hydroxyzine pamoate 100 mg capsule 08/26 completed Not Available Not Available Not Available medroxyprog esterone 10 mg tablet TAKE 1 TABLET BY MOUTH ONCE DAILY FOR 10 DAYS 03/31 completed Not Available Not Available Not Available bupropion HCl SR 150 mg tablet,12 hr sustained-r elease TK 1 T PO BID active Not Available Not Available No t Available clonidine HCl 0.1 mg tablet 05/11 completed Not Available Not Available Not Available lamotrigine 200 mg tablet TK 2 TS PO QAM AND TK 1 T PO Q NIGHT HS 08/18 completed Not Available Not Available Not Available clindamycin HCl 300 mg capsule active Not Available Not Available Not Available trazodone 50 mg tablet TK 1 T PO QD HS 03/31 completed Not Available Not Available Not Available polyethylen e glycol 3350 17 gram oral powder packet 08/18 completed Not Available Not Available Not Available cetirizine 10 mg tablet TAKE 1 TABLET BY MOUTH EVERY DAY 03/31 completed Not Available Not Available Not Available azithromyci n 250 mg tablet TAKE 2 TABLETS BY MOUTH TODAY, THEN TAKE 1 TABLET DAILY FOR 4 DAYS 08/26 completed Not Available Not Available Not Available ibuprofen 800 mg tablet TK 1 T PO TID PRF PAIN 03/31 completed Not Available Not Available Not Available fluconazole 150 mg tablet TAKE 1 TABLET BY MOUTH NOW THEN REPEAT IN 3 DAYS IF NEEDED 03/31 completed Not Available Not Available Not Available clomiphene citrate 50 mg tablet TAKE 1 TABLET BY MOUTH FOR 5 DAYS OF CYCLE. START ON DAY 2 FOLLOWING PERIOD 05/11 completed Not Available Not Available Not Available levetiracet am 500 mg tablet active Not Available Not Available Not Available clarithromy wiley 500 mg tablet 08/18 completed Not Available Not Available Not Available hydrocodone 5 mg-acetamin ophen 325 mg tablet TAKE 1 TABLET BY MOUTH EVERY 6 HOURS NEEDED FOR PAIN 08/26 completed Not Available Not Available Not Available sucralfate 1 gram tablet TK 1 T PO FOUR TIMES DAILY BEFORE MEALS AND NIGHTLY active Not Available Not Available No t Available metronidazo le 0.75 % (37.5 mg/5 gram) vaginal gel 08/18 completed Not Available Not Available Not Available ondansetron HCl 4 mg tablet active Not Available Not Available Not Available famotidine 40 mg tablet TK 1/2 T PO BID 08/18 completed Not Available Not Available Not Available prednisone 20 mg tablet TAKE 2 TABLETS BY MOUTH DIRECTED 08/26 completed Not Available Not Available Not Available clonazepam 0.5 mg tablet TAKE 1 TABLET BY MOUTH EVERY DAY NEEDED FOR 30 DAYS active Not Available Not Available No t Available clonazepam 1 mg tablet active Not Available Not Available Not Available Anucort-HC 25 mg suppository INSERT 1 SUPPOSITO RY RECTALLY BID PRF ITCHING active Not Available Not Available No t Available Elmiron 100 mg capsule TAKE 1 CAPSULE BY MOUTH THREE TIMES DAILY 08/18 completed Not Available Not Available Not Available hydroxyzine pamoate 50 mg capsule 08/26 completed Not Available Not Available Not Available risperidone 0.25 mg tablet 08/18 completed Not Available Not Available Not Available metronidazo le 500 mg tablet TAKE 1 TABLET BY MOUTH TWICE DAILY FOR 7 DAYS 08/26 completed Not Available Not Available Not Available acyclovir 400 mg tablet TK 1 T PO TID FOR 10 DAYS active Not Available Not Available No t Available ciprofloxac in 500 mg tablet 08/18 completed Not Available Not Available Not Available sulfamethox azole 800 mg-trimetho prim 160 mg tablet TK 1 T PO Q 12 H FOR 7 DAYS active Not Available Not Available No t Available tramadol 50 mg tablet TK 1 T PO Q 12 H PRN 08/18 completed Not Available Not Available Not Available acetaminoph en 500 mg tablet TAKE 2 TABLETS (1,000 MG TOTAL) BY MOUTH EVERY 6 (SIX) HOURS FOR 14 DAYS 08/26 completed Not Available Not Available Not Available lamotrigine 25 mg tablet TK 1 T PO D FOR 2 WEEKS THEN INCREASE TO 2 TS PO D FOR 2 WEEKS 08/26 completed Not Available Not Available Not Available oxycodone-a cetaminophe n 5 mg-325 mg tablet TAKE 1 TABLET BY MOUTH EVERY 4 TO 6 HOURS NEEDED 08/26 completed Not Available Not Available Not Available famotidine 20 mg tablet 08/26 completed Not Available Not Available Not Available trazodone 100 mg tablet 08/18 completed Not Available Not Available Not Available dicyclomine 20 mg tablet 08/18 completed Not Available Not Available Not Available OneTouch Ultra Test strips 03/31 completed Not Available Not Available Not Available dexamethaso ne 1 mg tablet Take 1 tablet as needed by oral route at bedtime for 1 day. 08/26 completed Not Available Not Available Not Available pantoprazol e 40 mg tablet,shreya yed release 08/18 completed Not Available Not Available Not Available cyanocobala min (vit B-12) 1,000 mcg/mL injection solution INJECT 1 ML EVERY WEEK BY SUBCUTANE OUS ROUTE IN THE MORNING active Not Available Not Available No t Available trazodone 150 mg tablet 08/26 completed Not Available Not Available Not Available oseltamivir 75 mg capsule TAKE 1 CAPSULE BY MOUTH TWICE A DAY 08/26 completed Not Available Not Available Not Available ranitidine 150 mg tablet TK 1 T PO BID 08/18 completed Not Available Not Available Not Available metoprolol tartrate 50 mg tablet TK 1 T PO QD active Not Available Not Available No t Available gabapentin 300 mg capsule 03/31 completed Not Available Not Available Not Available omeprazole 20 mg capsule,del ayed release TK 1 C PO D 08/26 completed Not Available Not Available Not Available folic acid 1 mg tablet TAKE 1 TABLET BY MOUTH EVERY DAY IN THE MORNING active Not Available Not Available No t Available levetiracet am 750 mg tablet active Not Available Not Available Not Available Low-Ogestre l (28) 0.3 mg-30 mcg tablet TK 1 T PO D 08/18 completed Not Available Not Available Not Available mirtazapine 15 mg tablet TK 1 T PO QD HS 08/18 completed Not Available Not Available Not Available gabapentin 100 mg capsule 03/31 completed Not Available Not Available Not Available lorazepam 1 mg tablet TK 1 T PO Q 6 H active Not Available Not Available No t Available ibuprofen 600 mg tablet TAKE 1 TABLET BY MOUTH EVERY 6 HOURS FOR 14 DAYS 08/26 completed Not Available Not Available Not Available levofloxaci n 500 mg tablet TK 1 AND 1/2 T PO QD 08/18 completed Not Available Not Available Not Available letrozole 2.5 mg tablet TAKE 3 TABLETS BY MOUTH ONCE DAILY FOR 5 DAYS 03/31 completed Not Available Not Available Not Available ondansetron 4 mg disintegrat ing tablet DISSOLVE 1 TABLET ON THE TONGUE DAILY NEEDED active Not Available Not Available No t Available fluticasone propionate 50 mcg/actuati on nasal spray,suspe nsion SPRAY 1 SPRAY INTO EACH NOSTRIL EVERY DAY FOR 30 DAYS active Not Available Not Available No t Available metformin ER 500 mg tablet,exte nded release 24 hr TAKE 1 TABLET BY MOUTH TWICE A DAY WITH MEALS 08/26 completed Not Available Not Available Not Available risperidone 1 mg tablet 08/18 completed Not Available Not Available Not Available dicyclomine 10 mg capsule 08/18 completed Not Available Not Available Not Available lamotrigine 100 mg tablet 12/25 completed Not Available Not Available Not Available risperidone 0.5 mg tablet 08/18 completed Not Available Not Available Not Available naproxen 500 mg tablet 08/26 completed Not Available Not Available Not Available diazepam 5 mg tablet active Not Available Not Available No t Available amoxicillin 875 mg-potassiu m clavulanate 125 mg tablet TAKE 1 TABLET BY MOUTH EVERY 12 HOURS FOR 7 DAYS 03/31 completed Not Available Not Available Not Available Ventolin HFA 90 mcg/actuati on aerosol inhaler INHALE 2 PUFFS PO Q 6 H PRN active Not Available Not Available No t Available oxycodone 5 mg tablet TAKE 1 TABLET (5 MG TOTAL) BY MOUTH EVERY 4 (FOUR) HOURS NEEDED FOR PAIN 08/26 completed Not Available Not Available Not Available hydroxyzine pamoate 25 mg capsule 12/25 completed Not Available Not Available Not Available aripiprazol e 10 mg tablet 05/11 completed Not Available Not Available Not Available aripiprazol e 15 mg tablet 05/11 completed Not Available Not Available Not Available Mononessa (28) 0.25 mg-35 mcg tablet TK ONE T PO QD 08/18 completed Not Available Not Available Not Available aripiprazol e 5 mg tablet 03/31 completed Not Available Not Available Not Available Ovidrel 250 mcg/0.5 mL subcutaneou s syringe ADMINISTE R 0.5 ML UNDER THE SKIN 1 TIME FOR 1 DOSE active Not Available Not Available No t Available escitalopra m 5 mg tablet 03/31 completed Not Available Not Available Not Available metoprolol tartrate 25 mg tablet TAKE 1 TABLET BY MOUTH DAILY WITH FOOD active Not Available Not Available No t Available nitrofurant oin monohydrate /macrocryst als 100 mg capsule TAKE 1 CAPSULE TWICE DAILY FOR 10 DAYS 03/31 completed Not Available Not Available Not Available quetiapine 50 mg tablet 08/26 completed Not Available Not Available Not Available Tirosint 13 mcg capsule Take 1 capsule every day by oral route in the morning for 90 days. 2022 active Not Available Not Available Not Avai lable Latuda 20 mg tablet 08/18 completed Not Available Not Available Not Available BD Insulin Syringe Ultra-Fine 1 mL 31 gauge x 5/16 INJECT B12 INTO THE SKIN ONCE WEEKLY active Not Available Not Available No t Available Vraylar 1.5 mg capsule TAKE 1 CAPSULE BY MOUTH EVERY OTHER DAY FOR 30 DAYS active Not Available Not Available No t Available OneTouch Ultra2 Meter 03/31 completed Not Available Not Available Not Available Vitals Date Recorded Body height Body mass index (BMI) Body weight Heart rate Body temperature Systolic And Diastolic Provider Name and Address Organization Details Last Updated DateTime 3 157.48 cm 30.2 kg/m2 57592.7 4 g 96 /min 97.7 [degF] 112/86 mm[Hg] Vidhi Diaz CMA [employer] 3 10:14:41 Date Recorded Body mass index (BMI) Body height Oxygen saturation Oxygen saturation in Arterial blood by Pulse oximetry Heart rate Body temperature Body weight Systolic And Diastolic Provider Name and Address Organization Details Last Updated DateTime 2 33.4 kg/m2 152.4 cm 98 % 98 % 86 /min 97.7 [degF] 18884.3 g 110/90 mm[Hg] Not Available [facility] 3 02:40:50 Date Recorded Body height Body mass index (BMI) Body weight Heart rate Systolic And Diastolic Provider Name and Address Organization Details Last Updated DateTime 03/31/2023 157.48 cm 29.9 kg/m2 11815.99 g 75 /min 115/78 mm[Hg] Arabella Garcia [employer] 03/31/2023 11:14:30 Date Recorded Body mass index (BMI) Body height Heart rate Body temperature Body weight Systolic And Diastolic Provider Name and Address Organization Details Last Updated DateTime 1 39.5 kg/m2 152.4 cm 71 /min 99.9 [degF] 14364.6 6 g 145/89 mm[Hg] Not Available [facility] 3 02:40:50 Date Recorded Body mass index (BMI) Body height Oxygen saturation Oxygen saturation in Arterial blood by Pulse oximetry Heart rate Body temperature Body weight Systolic And Diastolic Provider Name and Address Organization Details Last Updated DateTime 1 35.9 kg/m2 152.4 cm 99 % 99 % 87 /min 98.3 [degF] 66442 g 128/87 mm[Hg] Not Available [facility] 3 02:40:50 Social History Question Answer Notes LastModified by [employer] Details LastModified Time What Is Your Level Of Caffeine Consumption? Moderate [id number] Information not available 08/24/2022 In The 14 Days Before Symptom Onset, Have You Had Close Contact With A Laboratory-confirm ed COVID-19 While That Case Was Ill? No [id number] Information not available 08/24/2022 In The 14 Days Before Symptom Onset, Have You Had Close Contact With A Person Who Is Under Investigation For COVID-19 While That Person Was Ill? No [id number] Information not available 08/24/2022 Which Illicit Or Recreational Drugs Have You Used? Marijuana [id number] Information not available 08/24/2022 Sex: Unknown Functional Status Question Answer Note LastModified by [employer] Details LastModified Time What is your level of alcohol consumption? None [id number] Information not available 08/24/2022 What is your occupation? unemployment [id number] Information not available 08/24/2022 Do you or have you ever used e-cigarettes or vape? Never used electronic cigarettes [id number] Information not available 08/24/2022 Mental Status None recorded. Family History Relationship Description Onset Age of this Age Resolved Age Notes LastModified by Organization Details LastModified Time Maternal Grandmother Parathyroide ctomy [id number] Not available 08/24/2022 02:37:15 Medical History Condition Response ARTHRITIS Y HYPERTHYROIDISM Y GERD/NAUSEA Y HYPOTHYROIDISM Y DEPRESSION (INCLUDING POST ) Y HAVE YOU BEEN HOSPITALIZED OR SEEN IN [facility] ER IN THE PAST YEAR ? Y HYPERTENSION Y Gynecological HistoryNo gynecological history recorded. Obstetrics History GPAL:G 0 P 0 0 0 0 Past Encounters Encounter ID Performer Location Encounter Start Date Encounter Closed Date Diagnosis/Indication Diagnosis SNOMED-CT Code Diagnosis ICD10 Code Diagnosis Note [id number] Rey Roberts MD [facility] [address] [place] [address] 09/25/2020 00:00:00 09/25/2020 14:17:05 [id number] Rey Roberts MD [facility] [address] [place] [address] 12/25/2020 00:00:00 12/25/2020 15:03:07 [id number] Arron Thibodeaux MD [facility] [place] [id number] [place] [address] 04/06/2021 00:00:00 04/06/2021 16:19:21 [id number] Rey Roberts MD [facility] [address] [place] [address] 05/11/2021 00:00:00 05/11/2021 12:17:07 [id number] [facility] [address] [place] [address] 11/30/2021 00:00:00 11/30/2021 11:40:53 [id number] Rey Roberts MD [facility] [address] [place] [address] 08/26/2022 09:54:32 08/26/2022 11:39:40 Left flank pain 461915454 R10.9 Send for XR kidney/ure ter/bladde r and send for UA with culture -she has had pain on urination and decreased water intake- will provide macrobid treatment until we have her full workup completed due to consistenc y and persistenc e of pain going into the weekend. Polycystic ovary syndrome [id number] E28.2 A1C of 5.3%- recommende d natural insulin preparing box tender s such as deedee-inosit ol or berberine along with dewey powder. She is actively wanting to get - following a fertility specialist . 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 Marcello Hussein that contains, iodine, magnesium, manganese, carnitine and other elements to help maintain endogenous thyroid function and help to reduce swelling to take in meantime to help reduce time frame to burn out and to help with fatigue, hair thinning etc. Vitamin B1 2 deficiency (non anemic) [id number] E53.8 Will trial on B12 injections 1000 mcg SQ once weekly along with folic acid 1 mg once daily. Spent up to 28 minutes preparing to see the patient (eg, review of tests), obtaining and/or reviewing separately obtained history, performing a medically appropriat e examinatio n and evaluation , counseling and educating the patient, ordering medication s, tests, along with documentin g clinical informatio n in the electronic health record, independen tly interpreti ng results and communicat ing results to the patient. RTC in 6 months. Patient was provided a handwritte n lab order which contains our fax number. If she chooses to go outside of the [email or web address] system to obtain labwork she was advised to provide our fax number and my informatio n to the lab she will be obtaining labwork from in order to have her labs properly forwarded over for me to review so there is no loss of follow up due to use of outside network. She was also advised to contact our clinic informing us that she has completed her labwork so we are aware we will need to reach out to the appropriat e laboratory to request her results be forwarded to us so I might have the ability to review and make further medical decision making in her case. She voiced understand ing. 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 She does have fatigue and progestero ne is of concern as this is lower- per fertility specialist s she is able to ovulate-wo uld recommend very low dose tirosint for trial at 13 mcg daily for 6 months to see if she has any evidence of improvemen t of fertility factors. She is aware she will need to repeat her thyroid panel in 3 months and goal FT4 is 1 up to 1.4 ng/dL. She was reminded to take her tirosint on empty stomach with glass of water and wait one hour to eat or have her coffee in morning and up to 4 hours if ever taking any heartburn or reflux medication s to help optimize absorption . Discussed paleo like diet with restrictio n of GMOs to help with energy and to optimize absorption of vitamins and minerals and reduce inflammati on. Refer to endocrinol ogy per patient request. Vitamin B1 2 deficiency (non anemic) [id number] E53.8 Will continue on B12 injections 1000 mcg SQ once weekly along with folic acid 1 mg once daily. Spent up to 25 minutes preparing to see the patient (eg, review of tests), obtaining and/or reviewing separately obtained history, performing a medically appropriat e examinatio n and evaluation , counseling and educating the patient, ordering medication s, tests, along with documentin g clinical informatio n in the electronic health record, thaddeusen yolanday interpreti ng results and communicat ing results to the patient. Patient can be followed by PCP - she/he is aware of my resignatio n and last day of April 07. If needed his/her PCP can refer patient to another endocrinol ogist in the area. All questions /concerns answered and refills necessary at visit today. Health Concerns Section Related Observation LastModified by Organization Detai ls LastModified Time None Recorded Concern Status LastModified by Organization Details LastModified Time None Recorded Advance Directives Directive None Recorded Payers Insurance Date Sequence Insurance Name Policy Number Policy Espitia Covered Member ID Espitia Member ID Guarantor Name 08/23/2023 1 [facility] ON OR AFTER 12/24/20 (MEDICAID REPLACEMENT - HMO) Celeste Short [id number] Celeste Short Notes Date Note Type Note Provider Name and Address Organization Details Recorded Time 1 text/html IncontinenceReported bypatient.Notes:Pt presents with 2 months of urgency, urge incontinence and stress incontinence. Not sure what started it, some nocturia and stess incontinence have improved since starting PT. She wears panty liners, 3 a day. She voided every 90 min and 5-6 times at night. No dysuria or hematuria. She has some double voiding but doesnt go much the second time. She was started on bladder instillations and uribel without help. The bladder instillation was very painful. She drinks a lot of coffee and water. She is now down to 4cups of coffee and stopped putting expresso shots in. No hx of utis or stones. Not Available [employer] 04/06/2021 16:19:21 3 text/html 32 yo female comes in for follow up in management of PCOS, impaired glucose, hashimotos thyroiditis last seen in November at that time we continued deedee-inositol and thyroid support. She was trying for a baby so seeing fertility specialist/Dr. Mckeon. She will have to pay for IUI and still needing some tests done. She has noticed more left flank pain- she is drinking soda more regularly. She drinks 30 ozs of water a day and several sodas a day. She has noticed some discomfort on urination. She did do a test for UTI and was found to have a slight UTI. She has been dehydrated for her norm. labs from 08/15/22:195/100/44/131dhe as 190 ug/mLtestosterone 37.2 ng/dLinsulin 4.8 uU/mlTPO 26 IU/mlFT4 of 1.14 ng/dLFT3 of 3.3 pg/mlglucose 106 mg/dLCr normalLFT qcufrei1s 5.3%B12 321 pg/ml and folate 4.92 ng/mlTSH of 0.612 uIU/ml Rey Roberts MD [address] [facility], [address] [address], [place], [address], [employer] 08/26/2022 11:18:45 3 text/html 32 yo female comes in for follow up in management of b12 def, PCOS and hashimotos thyroiditis. at initial visit in August we continued natural insulin sensitizers and thyroid support. we started b12 injections She has more energy and focus overall since start of injections. she follows fertility specialist as desires . They attempted letrozole with no success. labs from 03/07/23:UA no nitrites or esterase (positive protein and leukocytes)testosterone 33 ng/dla1c 5.3%b12/folate highTSH 1.04 uIU/mlFT4 of 0.98 ng/dlFT3 of 3.0 pg/MLglucose 97 mg/dLLFT normalCr normaldheas 190 ug/mL Rey Roberts MD [address] [facility] [address] [place], [address], [place] [facility] 03/31/2023 12:45:10 OBGyn Episode No OBEpisode recorded.
--- OUTSIDE RECORDS SUMMARY | 2025-01-08 16:54 | XMS_ITS | Referral Summary ---
Author Organization [facility] Medical Office Building B Address [address] [place] [address] Care Team Providers Care Medical Lab Assistant Name Role Phone Karthikeyan Kearney MD Unavailable Radha Heiwtt MD Primary Care Provider [phone] Encounters Date Type Department Care Team Description 12/17/2024 Orders Only [facility] Rep[facility]ductive Endocrinology [address] [place] [phone] Edward Bailey MD 12/16/2024 Telephone [facility]ology [address] [place] [phone] Edward Bailey MD PLACED ON FET SCHEDULE 12/04/2024 7:30 AM CDT Clinical Support [facility] Lab [address] [place] [phone] Endometriosis (Primary Dx); Encounter for fertility testing; Screening for thyroid disorder 12/04/2024 7:36 AM CDT - 12/04/2024 11:59 PM CDT Hospital Encounter [address] [address] Endometriosis; Encounter for fertility testing; Screening for thyroid disorder Discharge Disposition: Discharge to home or self care 11/26/2024 Orders Only [facility]ology [address] [place] [phone] Edward Bailey MD 11/15/2024 Telephone [facility] [address] [facility] [address] [place] [address] Jayjay Knapp MD 10/31/2024 Orders Only [facility] [address] [facility] 3rd Floor [address] [place] [address] GretelDarnell garcia MD Vaginal candidiasis (Primary Dx) 10/25/2024 Results Follow-Up [facility] [address] [facility] [address] [place] [address] Edward Bailey MD [place] Hysterosalpingogram 10/25/2024 7:01 AM CDT - 10/25/2024 11:59 PM CDT Hospital Encounter [facility] [address] [place] [phone] Encounter for fertility testing Discharge Disposition: Discharge to home or self care 10/24/2024 12:51 PM CDT - 10/24/2024 11:59 PM CDT Hospital Encounter [facility] Cardiology [address] [place], [place] [phone] Chest pain, unspecified type Discharge Disposition: Discharge to home or self care 10/16/2024 Orders Only [facility] [address] [facility] [address] [place] [phone] Edward Bailey MD Encounter for fertility testing (Primary Dx) from Last 3 Months Allergies Active Allergy Reactions Criticality Noted Date Comments Cephalexin Rash Medium 04/12/2021 Latex Rash Medium 04/12/2021 Levothyroxine Other (See comments) Low 12/18/2023 Abdminal cramping & upset, Constipation Medications acyclovir (ZOVIRAX) 400 mg tabletIndications: Prophylaxis, Medical,Cold Sores Take 1 tablet (400 mg total) by mouth as needed (Cold Sores) 1 Active clonazePAM (KlonoPIN) 0.5 mg tabletIndications: Anxiety Take 1 tablet (0.5 mg total) by mouth 3 (three) times a day as needed for anxiety 1 Active ibuprofen (ADVIL,MOTRIN) 800 mg tabletIndications: Pain Take 1 tablet (800 mg total) by mouth as needed for pain Active ondansetron ODT (ZOFRAN-ODT) 8 mg disintegrating tabletIndications: nausea Take 1 tablet (8 mg total) by mouth every 8 (eight) hours as needed for nausea 4 Active cholecalciferol (VITAMIN D-3) 50,000 unit capsuleIndications :Vitamin D Deficiency Take 1 capsule (50,000 Units total) by mouth once a week Monday Active progesterone 50 mg/mL injection Inject 25mg to 100mg IM daily as directed by 20 mL 2 4 Active estradioL (Estrace) 2 mg tablet Take 1 tablet (2 mg total) by mouth 2 (two) times a day 60 tablet 2 4 Active Tirosint 25 mcg capsuleIndications :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 TAKE 1 CAPSULE (25 MCG TOTAL) BY MOUTH SANITATION LEAD BEFORE BREAKFAST 30 capsule 5 5 025 Active labetaloL (NORMODYNE,TRANDAT E) 100 mg tablet Take 1 tablet (100 mg total) by mouth 2 (two) times a day Active medroxyPROGESTERon e (PROVERA) 10 mg tablet Take 1 tablet (10 mg total) by mouth daily for 10 days 10 tablet 5 Active estradioL (Estrace) 2 mg tablet Take 1 tablet (2 mg total) by mouth 3 (three) times a day 90 tablet 2 5 Active progesterone 50 mg/mL injection Inject 25mg to 100mg IM daily as directed by 20 mL 2 5 Active azithromycin (ZITHROMAX) 500 mg tablet Take 2 tablets (1,000 mg total) by mouth once for 1 dose Take both tablets by mouth at the same time as directed. 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 Assessment & Plan (03/18/2024 10:42 AM CDT): Chronic, overall well controlled Continue Tirosint 25 mcg oral daily Recheck thyroid function test in 6 months Follow-up in 1 year Assessment & Plan (07/11/2023 1:21 PM [employer]): Pt unable to afford Tirosint Start pt on Levothyroxine 25 mcg oral daily Recheck TSH in 6 months Follow up in 6 months Multiple acquired skin tags 02/17/2023 Lack of energy 05/18/2022 Temperature intolerance 05/18/2022 Frequent urination 05/18/2022 Bipolar 1 disorder 05/18/2022 PCOS (polycystic ovarian syndrome) 08/12/2021 Overview (01/31/2022): -Reviewed diagnosis of PCOS as it relates to anovulation, infertility -Discussed benefit of weight loss for PCOS, HTN, T2DM -s/p letrozole for ovulation induction, c/b ruptured ovarian cyst -underwent lsc appy and hemoperitoneum evacuation on 09/23 at [facility] d/t rupture R ovarian cyst -s/p asthenospermia on SA 01/2022. 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 Left ovary with 3.5cm complex cyst with reticular pattern, possible hemorrhagic cyst vs endometrioma. No internal blood flow. - 2016: dx lsc with endo excision and left ovarian nodule removal (Dr. Funes, [facility]) - left US ligament with several implants of early endo which were removed. - 2019: dx lsc with endo resection and CHRIS (Dr. Leo, [facility]) - multiple posterior cul-de-sac endo implants with right ovarian adhesions. 1.5 hour dissection of posterior cul-de-sac and peritoneum removal. - day 3 E2/FSH: wnl (5.0, 4.7), prolactin 5.0, TSH 0.47 - S/p normal HSG on 07/28/20 - 07/22/2021: s/p dx lsc, removal of endo, normal chromopertubation. Ovarian cyst resolved. - s/p asthenospermia on SA 01/2022. - s/p IUI with letrozole ovulation induction in 12/2022 - 06/09/23: Reports return of lower abdominal/pelvic pain, dyspareunia, pain with BM/voids. Symptoms c/w endometriosis recurrence. - 06/30/23 TVUS with small anterior subserosal myoma, otherwise negative - 08/24/23: Patient reports continued painful/heavy menses and significant dyspareunia. Given experience/failure with menstrual suppression and no obvious surgically resectable lesions on US causing her discomfort, discussed GHRH antagonist treatment. Patient amenable. Given fertility desires, will reach out to [facility] fellow for guidance regarding return to fertility following cessation of GNRH therapy prior to starting medication. Assessment & Plan (05/13/2021 4:42 PM [employer]): Reviewed r/b/a to surgical management for infertility in the setting of endometriosis (also likely caused by PCOS and possible male factor). Reviewed slightly improved fertility outcomes following surgery, especially if left endometrioma diagnosed. Reviewed risks of infection, bleeding, and damage to surrounding organs as well as VTE risk. Also reviewed that left ovarian cyst may not be true endometrioma. If still present at time of surgery in 2021, diagnosis likely endometrioma and will proceed with cystectomy. Reviewed risk of oopherectomy with cystectomy. Consents signed for dx lsc, endo excision, and possible left ovarian cystectomy. Prep for case to be placed. Social History Tobacco Use Types Packs/Day Years Used Date Smoking Tobacco: Former Cigarettes 0.2 6 2 009 - 2014 Cigars Smokeless Tobacco: Never Tobacco Cessation:Counseling Given: Not Answered AUDIT-C Answer Date Recorded Q1: How often do you have a drink containing alcohol? Never 05/15/2024 Q2: How many drinks containi ng alcohol do you have on a typical day when you are drinking? Patient does not drink Q3: How often do you have si x or more drinks on one occasion? Never 05/15/2024 Hunger Vital Sign Answer Date Recorded Within the past 12 months, y ou worried that your food would run out before you got the money to buy more. Never true 05/15/20 Within the past 12 months, t he food you bought just didn't last and you didn't have money to get more. Never true 05/15/2024 Personal Safety Answer Date Recorded Have you ever been in or are you currently in a harmful physical or emotional relationship or is someone making you feel afraid or unsafe? Denies 10/02/2024 Comments No Sex and Gender Information Value Date Recorded Sex Assigned at Not on file Legal Sex Female 1:06 PM CDT Gender Identity Female 07/19/2021 11:09 AM [employer] Sexual Orientation Straight 07/19/2021 11 :09 AM [employer] Last Filed Vital Signs Vital Sign Reading Time Taken Comments Blood Pressure 97/61 10/04/2024 9:46 AM CDT Pulse 66 10/04/2024 9:50 AM CDT Temperature 36.7 C (98.1 F) 10/04/2024 9:08 AM CDT forehead Respiratory Rate 29 10/04/2024 9:50 AM CDT Oxygen Saturation 98% 10/04/2024 9:50 AM CDT Inhaled Oxygen Concentration - - Weight 72.7 kg (160 lb 4.8 oz) 10/04/2024 7:15 A M CDT Height 154.9 cm (5' 1) 10/04/2024 7:15 AM CDT Body Mass Index 30.29 10/04/2024 7:15 AM CDT Plan of Treatment Not on file Procedures Procedure Name Priority Date/Time Associated Diagnosis Comments FOLLICLE STIMULATING HORMONE Routine 12/04/2024 7:24 AM CDT Endometriosis Encounter for fertility testing TSH Routine 12/04/2024 7:24 AM CDT Screening for thyroid disorder ESTRADIOL Routine 12/04/2024 7:24 AM CDT Endometriosis Encounter for fertility testing HYSTEROSALPINGOGRAM Schedule Routine, Read Routine (OP Routine) 10/25/2024 8:12 AM CDT Encounter for fertility testing POCT HCG, URINE Routine 10/25/2024 7:26 AM CDT STRESS TEST ONLY TREADMILL Routine 10/24/2024 1:20 PM CDT Chest pain, unspecified type HEPATITIS C ANTIBODY Routine 05/29/2024 12:42 PM [employer] Screening examination for sexually transmitted disease HIGH RISK HPV DNA DETECTION WITH GENOTYPING Routine 06/09/2023 11:35 AM [employer] Well woman exam from Last 3 Months or Most Recently Relevant to Health Maintenance Results * Estradiol (12/04/2024 7:24 AM CDT) Estradiol 34.7 pg/mL Comment: Interpretive Data Males: 11 43 pg/mL Females: Premenopausal: 31 533 pg/mL Postmenopausal: < 50 pg/mL Patients treated with Fluvestrant (Faslodex) should be tested using an alternate assay such as LC-MS due to potential for cross-reactivity. Estradiol varies widely throughout the menstrual cycle. Current interpretive data was last revised 2024. Testing performed by: [facility], [address] [place] [address], [address], [facility] [phone] Blood 12/04/2024 7:24 AM CDT 12/04/2024 8:26 AM CDT us Edward Bailey MD LAB BLOOD ORDERABLES Final Result Performing Organization Address City/[facility] Co de Phone Number [facility] [place] [address] * TSH (12/04/2024 7:24 AM CDT) Thyroid Stimulating Hormone 0.46 0.30 - 4.20 mcIUnit/mL Comment:Testing performed by : [facility], [address] [place] [phone] Blood 12/04/2024 7:24 AM CDT 12/04/2024 8:26 AM CDT Edward Bailey MD LAB BLOOD ORDERABLES Final Result Performing Organization Address [facility] Co de Phone Number [facility] [place] [address] * Follicle stimulating hormone (12/04/2024 7:24 AM CDT) FSH 5.3 mIUnits/mL Comment: Interpretive Data Male: Adults: 1.5 - 12.4 mIUnits/mL Female: Follicular: 3.5 - 12.5 mIUnits/mL Ovulation: 4.7 - 21.5 mIUnits/mL Luteal: 1.7 - 7.7 mIUnits/mL Postmenopausal: 25.8 - 134.8 mIUnits/mL Current interpretive data was last revised 2017. Testing performed by: [facility], [address] [place] [phone] Blood 12/04/2024 7:24 AM CDT 12/04/2024 8:26 AM CDT Edward Bailey MD LAB BLOOD ORDERABLES Final Result Performing Organization Address City/[facility] Co de Phone Number [facility]UB[facility]N [facility] [place] [address] * [place] Hysterosalpingogram (10/25/2024 8:12 AM CDT) Anatomical Region Laterality Modality Body, Pelvis N/A Radio Fluoroscop y 10/25/2024 8:30 AM CDT Impressions 10/25/2024 8:34 AM CDT Normal hysterosalpingogram. Dictated by: Gilma Adams M.D. The radiology attending physician has personally reviewed this study, and had reviewed and/or edited this written report and agrees with it. Electronically signed by: Breanne Fajardo M.D. Narrative 10/25/2024 8:34 AM CDT EXAMINATION: HYSTEROSALPINGOGRAM HISTORY: 34 year old woman, on day 10 of her menstrual cycle. Diagnostic evaluation of the fallopian tubes and uterine cavity. TECHNIQUE: Using sterile technique, a speculum was inserted into the vagina and the cervix swabbed with Betadine solution. A hysterocatheter was placed and Conray 60 was injected into the uterus. Fluoroscopic images of the pelvis were obtained. The patient tolerated the procedure well without complication. Dr. Breanne Fajardo M.D., the attending radiologist, was present from the beginning to the end of the procedure. FINDINGS: Endocervical canal: The endocervical canal is normal in appearance. Uterus: The uterus is retroverted. There are no filling defects, and the uterine contour is normal. Fallopian tubes: The fallopian tubes are normal in contour. There is peritoneal spillage from both tubes. Procedure Note Breanne Fajardo MD - 10/25/2024 EXAMINATION: HYSTEROSALPINGOGRAM HISTORY: 34 year old woman, on day 10 of her menstrual cycle. Diagnostic evaluation of the fallopian tubes and uterine cavity. TECHNIQUE: Using sterile technique, a speculum was inserted into the vagina and the cervix swabbed with Betadine solution. A hysterocatheter was placed and Conray 60 was injected into the uterus. Fluoroscopic images of the pelvis were obtained. The patient tolerated the procedure well without complication. Dr. Breanne Fajardo M.D., the attending radiologist, was present from the beginning to the end of the procedure. FINDINGS: Endocervical canal: The endocervical canal is normal in appearance. Uterus: The uterus is retroverted. There are no filling defects, and the uterine contour is normal. Fallopian tubes: The fallopian tubes are normal in contour. There is peritoneal spillage from both tubes. IMPRESSION: Normal hysterosalpingogram. Dictated by: Gilma Adams M.D. The radiology attending physician has personally reviewed this study, and had reviewed and/or edited this written report and agrees with it. Electronically signed by: Breanne Fajardo M.D. Edward Bailey MD IMG FLUOROSCOPY PROCEDURES Final Result * POCT hCG, urine (10/25/2024 7:26 AM CDT) HCG, ur, POC Negative Negative Lot Number [id number] QC Backgroud Clear Acceptable QC Control Line Acceptable Urine 10/25/2024 7:26 AM CDT Edward Bailey MD POINT OF CARE TEST ORDERAB LES Final Result * Stress Treadmill Test (10/24/2024 1:20 PM CDT) Anatomical Region Laterality Modality Nuclear Medicine 10/24/2024 1:00 PM CDT Narrative 10/25/2024 7:51 AM CDT [address] [address] EXERCISE STRESS Patient Name: CELESTE SHORT K : 1990 Study Date: 10/24/2024 1:00:00 PM Gender: F Tech: demetri hannah Ref Provider: RADHA HEWITT Height(Cm): 155 BSA: 2.62 Weight(Kg): 160 Order Provider: RADHA HEWITT PROCEDURES: Stress Report: Treadmill stress Exam. INDICATIONS: R07.9 Chest pain, unspecified. FINDINGS: Procedure Data: Exercise Time: 07:00 Resting HR 91 bpm Peak HR: 159 bpm Predicted Maximal HR 186 bpm Target HR: 158 bpm Percent Max Predicted HR Achieved: 85 % Baseline BP: 152/85 Peak BP: 167/73 METS achieved: 9 Rate-Pressure Product: 80884 BPM*mmHg Max ST: Medications: Free Text. Performed By: Supervising Physician: The Supervising Physician is shaffer lutan. Resting ECG: Normal sinus rhythm, rightward axis. Post ECG: No diagnostic ST changes. Arrhythmia: No arrhythmias seen. Exercise Capacity: Fair exercise capacity. Cardiac Symptoms With Stress: Symptoms with stress were fatigue, general appearance and dyspnea. Target HR Achieved: Target heart rate was achieved. Reason For Termination: Fatigue. Dyspnea. THR achieved. Patient request. BP Response: Blood pressure response is hypertensive. Exam Interpreted: Read by . CONCLUSIONS: 1. Adequate stress test in regards to heart rate with the patient achieving 85% of predicted maximum heart rate. 2. No exercise induced chest pain. 3. No definite ischemia on stress EKG. Electronically Signed By: Dr Shaheed Cali 10/25/2024 6:43:59 AM CDT Procedure Note Shaheed Cali MD - 10/25/[address] [place] [address] EXERCISE STRESS Patient Name: CELESTE SOHRT K : 1990 Study Date: 10/24/2024 1:00:00 PM Gender: F Tech: demetri Robbins Provider: RADHA HEWITT Height(Cm): 155 BSA: 2.62 Weight(Kg): 160 Order Provider: RADHA HEWITT PROCEDURES: Stress Report: Treadmill stress Exam. INDICATIONS: R07.9 Chest pain, unspecified. FINDINGS: Procedure Data: Exercise Time: 07:00 Resting HR 91 bpm Peak HR: 159 bpm Predicted Maximal HR 186 bpm Target HR: 158 bpm Percent Max Predicted HR Achieved: 85 % Baseline BP: 152/85 Peak BP: 167/73 METS achieved: 9 Rate-Pressure Product: 77895 BPM*mmHg Max ST: Medications: Free Text. Performed By: Supervising Physician: The Supervising Physician is shaffer lutan. Resting ECG: Normal sinus rhythm, rightward axis. Post ECG: No diagnostic ST changes. Arrhythmia: No arrhythmias seen. Exercise Capacity: Fair exercise capacity. Cardiac Symptoms With Stress: Symptoms with stress were fatigue, general appearance and dyspnea. Target HR Achieved: Target heart rate was achieved. Reason For Termination: Fatigue. Dyspnea. THR achieved. Patient request. BP Response: Blood pressure response is hypertensive. Exam Interpreted: Read by . CONCLUSIONS: 1. Adequate stress test in regards to heart rate with the patientachieving 85% of predicted maximum heart rate. 2. No exercise induced chest pain. 3. No definite ischemia on stress EKG. Electronically Signed By: Dr Shaheed Cali 10/25/2024 6:43:59 AM CDT us Radha Hewitt MD CV STRESS PROCEDURES Final Result * Hepatitis C antibody Blood (05/29/2024 12:42 PM [employer]) Hep C Ab Nonreactive Nonreactive Comment:Antibodies to HCV no t detected. Does NOT exclude the possibility of recent exposure to HCV. Current interpretive data was last revised on 22 Blood 05/29/2024 12:4 2 PM [employer] 05/29/2024 4:42 PM [employer] us Edward Bailey MD LAB MICROBIOLOGY - GENERAL ORDERABLES Final Result [facility] [place] [address] * High Risk HPV DNA Detection with Genotyping (Molecular component) (06/09/2023 11:35 AM [employer]) HPV HR 16 Not Detected Not Detected [facility] HPV HR 18 Not Detected Not Detected [facility] HPV HR Non 16/18 Not Detected Not Detected [facility] Comment: Interpretive Data Nucleic acid amplification for detection of high-risk Human Papilloma virus (HPV) is performed by the Ariana Truman 6800 HPV test. This assay specifically detects HPV-16 and HPV-18 genotypes. The following HPV genotypes are detected as high-risk HPV: HPV-31, 33, 35, ,39, 45, 51, 52, 56, 58, 59, 66, and 68. This assay has been approved by the [place] Food and Drug Administration for detection of HPV in cervical specimens collected by a physician using an endocervical brush/spatula or cervical broom and placed in the ThinPrep Pap Test PreservCyt collection containers. The performance characteristics of this test have been verified by the [facility] Molecular Infectious Disease laboratory. Correlate with separately reported cytology results, as applicable. Interpretive data last revised 22 Endocervical 06/09/2023 11:3 5 AM [employer] 06/13/2023 7:10 AM [employer] Narrative [facility] - 06/14/2023 5:46 AM [employer] Clinical history and diagnosis->Routine screening Testing type->Screening Last menstrual period (date if known)->05/29/23 Darnell Majano MD LAB BODY FLUIDS AND STOOLS O RDERABLES Final Result [facility] [place] [address] from Last 3 Months or Most Recently Relevant to Health Maintenance Insurance AETNA [facility] HMO [facility] HMO Member Subscriber [facility] / [facility] Name:Brooke Shortstephanie Vines Relation to Subscriber:Self Name:Brooke Shortstephanie Vines Payer ID:[id number] ([facility]) Type:AETNA HMO/PPO Address: [address] [place] [id number] Advance Directives For more information, please contact: [phone] * Full Code (Latest Code Status on File) Date Activated Date Inactivated Comments 10/04/2024 6:58 AM 10/05/2024 5:21 AM Care Teams Medical Lab Assistant Relationship Specialty Start Date End Date Karthikeyan Kearney MD PCP - ear machine operator Obstetrics and Gynecology 05/18/22 Radha Hewitt MD 4 [facility] [address] [address] PCP - General Family Medicine 10/07/24
--- OUTSIDE RECORDS SUMMARY | 2025-01-08 16:54 | XMS_ITS | Clinical Summary ---
Author Organization [facility] Address [address] [place] [address] Care Team Providers Care Heading Up Machine Operator Name Role Phone Karthikeyan Kearney MD Unavailable [phone] Radha Hewitt MD Primary Care Provider [phone] Allergies Active Allergy Reactions Criticality Noted Date [...] 1 CAPSULE (25 MCG TOTAL) BY MOUTH UPPER AND BOTTOM LACER HAND BEFORE BREAKFAST 30 capsule 5 5 025 [...] 07/11/2023 Assessment & Plan (07/11/2023 1:20 PM GASTROENTEROLOGY TECHNICIAN): Over treated with vitamin b12 injections Advised [...] year Assessment & Plan (07/11/2023 1:21 PM GASTROENTEROLOGY TECHNICIAN): Pt unable to afford Tirosint Start pt [...] appy and hemoperitoneum evacuation on 09/23 at [facility] d/t rupture R ovarian cyst -s/p asthenospermia on SA 01/2022. Plan for letrozole with timed intercourse and if fails, then for MIRZA referral Assessment & Plan (07/11/2023 1:19 PM GASTROENTEROLOGY TECHNICIAN): Counseled on diet and exercise Advise to include healthy lifestyle habits Endometriosis 04/12/2021 Overview (08/24/2023): - longstanding h/o endometriosis, unresponsive to OCPs and depo - s/p 3 diagnostic laparoscopies, see below - currently attempting conception but unsuccessful for 12 months of unprotected intercourse - on clomid for PCOS through ict quality assurance engineer with OPKs that were not positive on days 10-12 of cycle - partner with reportedly abnormal SA that was not followed up with urologist - TVUS 04/21 remarkable for [id number] antevetered uterus with normal right ovary. Left ovary with 3.5cm complex cyst with reticular pattern, possible hemorrhagic cyst vs endometrioma. No internal blood flow. - 2016: dx lsc with endo excision and left ovarian nodule removal (Dr. Funes, [facility]) - left US ligament with several implants of early endo which were removed. - 2019: dx lsc with endo resection and CHRIS (Dr. Leo, [facility]) - multiple posterior cul-de-sac endo implants with [...] medication. Assessment & Plan (05/13/2021 4:42 PM GASTROENTEROLOGY TECHNICIAN): Reviewed r/b/a to surgical management for infertility [...] cystectomy. Prep for case to be placed. Encounters Date Type Department Care Team Description 12/17/2024 Orders Only [facility] Reproductive Endocrinology [address] [place] [address] Edward Bailey MD 12/16/2024 Telephone [facility] Reproductive Endocrinology [address] [place] [address] [address] [place] [phone] Edward Bailey MD PLACED ON FET SCHEDULE 12/04/2024 7:36 AM CDT - 12/04/2024 11:59 PM CDT Hospital Encounter [facility] [address] [place] [address] [address] [place] [address] Endometriosis; Encounter for fertility testing; Screening for thyroid disorder Discharge Disposition: Discharge to home or self care 12/04/2024 7:30 AM CDT Clinical Support [facility] Reproductive Endocrinology Lab [address] [place] [phone] Endometriosis (Primary Dx); Encounter for fertility testing; Screening for thyroid disorder 11/26/2024 Orders Only [facility] Reproductive Endocrinology [address] [place] [phone] Edward Bailey MD 11/15/2024 Telephone [facility] [address] [place] [address] Jayjay Knapp MD 10/31/2024 Orders Only [facility] [address] [facility] 3rd Floor [address] [place] [address] Darnell Majano MD Vaginal candidiasis (Primary Dx) 10/25/2024 7:01 AM CDT - 10/25/2024 11:59 PM CDT Hospital Encounter [facility] [address] [place] [address] Encounter for fertility testing Discharge Disposition: Discharge to home or self care 10/25/2024 Results Follow-Up [facility] Reproductive Endocrinology [address] [place] [phone] Edward Bailey MD [place] Hysterosalpingogram 10/24/2024 12:51 PM CDT - 10/24/2024 11:59 PM CDT Hospital Encounter [facility] Cardiology [address] [place] [phone] Chest pain, unspecified type Discharge Disposition: Discharge to home or self care 10/16/2024 Orders Only [facility] Reproductive Endocrinology [address] [place] [phone] Edward Bailey MD Encounter for fertility testing (Primary Dx) from Last 3 Months Surgical History Surgery Date Site/Laterality Comments DIAGNOSTIC LAPAROSCOPY 06/26/2013 - 06/25/2014 diagnose DIAGNOSTIC LAPAROSCOPY 06/26/2015 - 06/25/2016 diagnose endometrios, stage 4 HERNIA REPAIR 06/26/1994 - 06/25/1995 LAPAROSCOPIC CHOLECYSTECTOMY 09/14/2012 DIAGNOSTIC LAPAROSCOPY 07/22/2021 With endo excision APPENDECTOMY 06/26/2021 - 06/25/2022 ESOPHAGOGASTRODUODENOSCOPY 09/07/2012 08/02/18 COLONOSCOPY W/ BIOPSIES 07/26/2018 10/16/2013 OVUM / OOCYTE RETRIEVAL 10/04/2024 EGG RETRIEVAL Medical History Medical History Date Comments Ronna's thyroiditis Hypertension Endometriosis GERD (gastroesophageal reflux disease) Prediabetes Infertility, female, primary Obesity Polycystic ovary syndrome Insomnia Anxiety RLS (restless legs syndrome) Anxiety Nausea Lack of energy Temperature intolerance Frequent urination Bipolar 1 disorder (HCC) Family History Medical History Relation Name Comments Hypertension Mother Irritable bowel syndrome Mother Anesthesia problems Neg Hx Relation Name Status Comments Mother Social History Tobacco Use Types Packs/Day Years Used Date Smoking Tobacco: Former Cigarettes 0.2 6 2 009 - 2015 Cigars Smokeless Tobacco: Never Tobacco Cessation:Counseling Given: [...] money to buy more. Never true 05/15/20 24 Within the past 12 months, t he [...] CDT Gender Identity Female 07/19/2021 11:09 AM GASTROENTEROLOGY TECHNICIAN Sexual Orientation Straight 07/19/2021 11 :09 AM GASTROENTEROLOGY TECHNICIAN Obstetrics History Para Term AB IAB SAB Ectopic Multiple Livin g Live Births 1 1 06 26 1 Date Outcome GA Total Labor Labor/2nd/3rd Weight Sex Type Anes PTL Mine A1 A5 Name Clin 2009 Term F Vag-S pont Living Last Filed Vital Signs Vital Sign Reading [...] 10/04/2024 7:15 AM CDT Plan of Treatment Health Maintenance Due Date Last Done Comments Depression Screening 1990 DTaP/Tdap/Td Vaccine (5 - Tdap) 2001 12/24/1991, 1990, 1990, Additional history exists Varicella Vaccines (1 of 2 - 13+ 2-dose series) 2003 Hepatitis B Screening 2008 Regular Well Visit/Exam 18-64 2008 Cervical Cancer Screening 06/09/2024 06/09/2023 Influenza Vaccine (#1) 2025 , 05/09/2023, 04/28/2021, Additional history exists Hepatitis C Screening Completed 05/29/2024 HPV Vaccines Aged Out No longer eligi ble based on patient's age to complete this topic Pneumococcal vaccine <65 Aged Out No longer eligible based on patient's age to complete this topic Procedures Procedure Name Priority Date/Time Associated Diagnosis [...] HEPATITIS C ANTIBODY Routine 05/29/2024 12:42 PM GASTROENTEROLOGY TECHNICIAN Screening examination for sexually transmitted disease HIGH RISK HPV DNA DETECTION WITH GENOTYPING Routine 06/09/2023 11:35 AM GASTROENTEROLOGY TECHNICIAN Well woman exam from Last 3 Months [...] was last revised 2024. Testing performed by: [facility] O[facility]YN [facility], [address] [place] [address], [address], [facility] [phone] Blood 12/04/2024 7:24 AM CDT 12/04/2024 8:26 AM CDT us Edward Bailey MD LAB BLOOD ORDERABLES Final Result [facility] Department [place] [address] * TSH (12/04/2024 7:24 AM CDT) Thyroid Stimulating Hormone 0.46 0.30 - 4.20 mcIUnit/mL Comment:Testing performed by : [facility], [address] [place] [phone] Blood 12/04/2024 7:24 AM CDT 12/04/2024 8:26 AM CDT Edward Bailey MD LAB BLOOD ORDERABLES Final Result Performing Organization Address [facility] Co de Phone Number [facility] Department [place] [address] * Follicle stimulating hormone (12/04/2024 7:24 AM CDT) FSH 5.3 mIUnits/mL Comment: Interpretive Data Male: Adults: 1.5 - 12.4 mIUnits/mL Female: Follicular: 3.5 - 12.5 mIUnits/mL Ovulation: 4.7 - 21.5 mIUnits/mL Luteal: 1.7 - 7.7 mIUnits/mL Postmenopausal: 25.8 - 134.8 mIUnits/mL Current interpretive data was last revised 2017. Testing performed by: [facility], [address] [place] [phone] Blood 12/04/2024 7:24 AM CDT 12/04/2024 8:26 AM CDT Edward Bailey MD LAB BLOOD ORDERABLES Final Result Performing Organization Address [facility]/ZIP Co de Phone Number [facility] Department [place] [address] * [place] Hysterosalpingogram (10/25/2024 8:12 AM CDT) [...] PM CDT Narrative 10/25/2024 7:51 AM CDT [address] [address] EXERCISE STRESS Patient Name: CELESTE SHORT K [...] BP: 167/73 METS achieved: 9 Rate-Pressure Product: 99097 BPM*mmHg Max ST: Medications: Free Text. Performed [...] Procedure Note Shaheed Cali MD - 10/25/[address] [address] EXERCISE STRESS Patient Name: CELESTE SHORT K [...] BP: 167/73 METS achieved: 9 Rate-Pressure Product: 78259 BPM*mmHg Max ST: Medications: Free Text. Performed [...] Dr Shaheed Cali 10/25/2024 6:43:59 AM CDT Radha Hewitt MD CV STRESS PROCEDURES Final Result * Hepatitis C antibody Blood (05/29/2024 12:42 PM GASTROENTEROLOGY TECHNICIAN) [facility] [address] Hep C Ab Nonreactive Nonreactive Comment:Antibodies to HCV no t detected. Does NOT exclude the possibility of recent exposure to HCV. Current interpretive data was last revised on 22 Blood 05/29/2024 12:4 2 PM GASTROENTEROLOGY TECHNICIAN 05/29/2024 4:42 PM GASTROENTEROLOGY TECHNICIAN Edward Bailey MD LAB MICROBIOLOGY - GENERAL ORDERABLES Final Result [facility] Department [place] [address] * High Risk HPV DNA Detection with Genotyping (Molecular component) (06/09/2023 11:35 AM GASTROENTEROLOGY TECHNICIAN) HPV HR 16 Not Detected Not Detected [facility] HPV HR 18 Not Detected Not Detected [facility] HPV HR Non 16/18 Not Detected Not Detected [facility] Comment: Interpretive Data Nucleic acid amplification for [...] this test have been verified by the [facility] Molecular Infectious Disease laboratory. Correlate with separately reported cytology results, as applicable. Interpretive data last revised 22 Endocervical 06/09/2023 11:3 5 AM GASTROENTEROLOGY TECHNICIAN 06/13/2023 7:10 AM GASTROENTEROLOGY TECHNICIAN Narrative [facility] - 06/14/2023 5:46 AM GASTROENTEROLOGY TECHNICIAN Clinical history and diagnosis->Routine screening Testing type->Screening Last menstrual period (date if known)->05/29/23 Darnell Majano MD LAB BODY FLUIDS AND STOOLS O RDERABLES Final Result [facility] [place] [address] from Last 3 Months or Most Recently Relevant to Health Maintenance Insurance [employer] [facility] HMO [id number] Advance Directives For more information, please contact: [phone] * Full Code (Latest Code Status on File) Date Activated Date Inactivated Comments 10/04/2024 6:58 AM 10/05/2024 5:21 AM Care Teams Heading Up Machine Operator Relationship Specialty Start Date End Date Karthikeyan Kearney MD PCP - mainstreaming facilitator Obstetrics and Gynecology 05/18/22 Radha Hewitt MD [address] [place] [address] [facility] [place] [place] [address] PCP - General Family Medicine 10/07/24
[2025-01-08 16:58] VITALS: BP 141/95; PULSE 99; RESP 16; TEMP 36.9; O2SAT 100
--- NOTE | 2025-01-08 17:34 | ED.SKABFB ---
HPI - Skin/Abscess/Foreign Bdy General Chief complaint: Skin/Abscess/Foreign Body Stated complaint: rash vs shingles Time Seen by Provider: 01/08/25 17:35 Source: patient Mode of arrival: ambulatory Limitations: no limitations History of Present Illness HPI narrative: 34 YEARS OLD WHITE FEMALE, HISTORY OF YAMILET CAME TO THE ED WITH ITCHING RASH IN DIFFERENT PARTS OF HER BODY STARTED ON THE 7 OF THIS MONTH. INITIALLY STARTED ON THE RIGHT FOREHEAD THEN RESOLVED IN FEW DAYS THEN LATER ON THE RIGHT SIDE OF THE NECK RIGHT UPPER CHEST LEFT FOREARM LEFT LOWER ABDOMEN AND GROIN AREA. PATIENT WAS SEEN BY URGENT CARE AT THAT TIME STARTED ON VALTREX T.I.D. FOR 7 DAYS, STILL HAVING NEW RASH DIFFERENT PARTS OF HER BODY, WAS SEEN BY HER FAMILY PHYSICIAN NURSE PRACTITIONER WHO STARTED HER ON VALTREX AGAIN. HISTORY OF ALLERGY TO KEFLEX. PATIENT DENIES ANY FEVER, CHILLS, NAUSEA, VOMITING OR PAIN. Related Data Home Medications ?Medication ?Instructions ?Recorded ?Confirmed ?Last Taken ?Type brexpiprazole 2 mg tablet (Rexulti) mg 04/15/24 Unknown History clonazepam 0.5 mg tablet mg 04/15/24 Unknown History cyclobenzaprine 10 mg tablet mg 04/15/24 Unknown History diazepam 5 mg tablet mg 04/15/24 Unknown History ergocalciferol (vitamin D2) 1,250 04/15/24 Unknown History mcg (50,000 unit) capsule ibuprofen 800 mg tablet mg 04/15/24 Unknown History levothyroxine 25 mcg capsule mcg PO 04/15/24 Unknown History (Tirosint) nziyvt-gjxbhmym-vqkpfuh cap PO 04/15/24 Unknown History 3,000-10,000-14,000 unit capsule,delayed rel (Zenpep) metoprolol tartrate 25 mg tablet mg 04/15/24 Unknown History ondansetron 8 mg disintegrating mg 04/15/24 Unknown History tablet relugolix 40 mg-estradiol 1 tablet PO 04/15/24 04/15/24 Unknown History mg-norethindrone acetate 0.5 mg tablet (Myfembree) sulfacetamide sodium 10 % eye drops drp 04/15/24 Unknown History Allergies Allergy/AdvReac Type Severity Reaction Status Date / Time latex Allergy Intermediate RASH Verified 01/08/25 17:19 cephalexin AdvReac Intermediate RASH Verified 01/08/25 17:19 codeine AdvReac Intermediate VOMITING Verified 01/08/25 17:19 Review of Systems Review of Systems: All systems reviewed & are unremarkable except as noted in HPI and below Exam Narrative: GENERAL APPEARANCE: WELL-DEVELOPED, WELL-NOURISHED SKIN: NORMAL COLOR SCATTERED HIVES INVOLVING RIGHT SIDE OF NECK, RIGHT UPPER CHEST, LEFT GROIN AREA, LEFT FOREARM, NO BLISTERS HEAD: NORMOCEPHALIC, NONTRAUMATIC EYES: CLEAR CONJUNCTIVA ENT: OROPHARYNX NORMAL, EARS NORMAL, NOSE NORMAL NECK: SUPPLE, NONTENDER CHEST AND RESPIRATORY: AIRWAY PATENT, NO RESPIRATORY DISTRESS, NO ACCESSORY MUSCLE USE HEART: REGULAR RATE/RHYTHM ABDOMEN: SOFT, NONTENDER, NO ORGANOMEGALY, QUIET BOWEL SOUNDS VASCULAR: NORMAL PERIPHERAL PULSES, NORMAL CAPILLARY REFILL. MUSCULOSKELETAL: NORMAL RANGE OF MOTION, NONTENDER BACK NEUROLOGIC: ALERT AND ORIENTED ?3, FOOD AND BEVERAGE ASSOCIATE IS NORMAL TESTED, NO GROSS MOTOR DEFICIT Course Vital Signs Vital signs: Vital Signs Temperature 36.9 C 01/08/25 16:58 Pulse Rate 99 01/08/25 16:58 Respiratory Rate 16 01/08/25 16:58 Blood Pressure 141/95 H 01/08/25 16:58 Pulse Oximetry 100 01/08/25 16:58 Temperature 36.9 C 01/08/25 16:58 Pulse Rate 99 01/08/25 16:58 Respiratory Rate 16 01/08/25 16:58 Blood Pressure 141/95 H 01/08/25 16:58 Pulse Oximetry 100 01/08/25 16:58 MDM - Skin/Abscess/Foreign Bdy MDM Narrative Medical decision making narrative: PATIENT PRESENTS WITH ITCHING RASH IN DIFFERENT PARTS OF HER BODY PHYSICAL EXAMINATION CONSISTENT WITH HIVES, NO BLISTERS DIFFERENTIAL DIAGNOSIS CONTACT DERMATITIS, ALLERGIC REACTION IN THE ED PATIENT RECEIVED EPINEPHRINE IM, STEROID AND ZYRTEC. DISCHARGED ON PREDNISONE AND ZYRTEC AND TO STOP VALTREX AT HOME Differential Diagnosis Differential diagnosis: Likely other ( ABOVE) Critical Care Time Critical Care Time Critical Care Time: No Discharge Plan Discharge Clinical Impression: Allergic reaction Patient Disposition: Home Condition: Stable Instructions: General Allergic Reaction (ED) Additional Instructions: RETURN IF SYMPTOMS ARE WORSENING , CALL YOUR FAMILY PHYSICIAN FOR APPOINTMENT, TAKE TYLENOL NEEDED FOR ACHES AND PAIN, CONTINUE HOME MEDICATIONS. STOP VALTREX Patient Language: Senegalese Prescriptions: New prednisone 20 mg tablet 40 mg PO DAILY 5 Days Qty: 10 0RF Zyrtec 10 mg capsule 10 mg PO BID PRN (Reason: allergy symptoms) Qty: 20 0RF No Action valacyclovir 1 gram tablet 1,000 mg PO TID 7 Days Qty: 21 0RF cyclobenzaprine 10 mg tablet ibuprofen 800 mg tablet clonazepam 0.5 mg tablet ondansetron 8 mg tablet,disintegrating sulfacetamide sodium 10 % drops ergocalciferol (vitamin D2) 1,250 mcg (50,000 unit) capsule diazepam 5 mg tablet metoprolol tartrate 25 mg tablet levothyroxine [Tirosint] 25 mcg capsule PO Rexulti 2 mg tablet Zenpep 3,000-10,000 -14,000-unit capsule,delayed release(DR/EC) PO Myfembree 40-1-0.5 mg tablet PO Follow-up/Referrals: [facility] [Primary Care Provider] -
--- OUTSIDE RECORDS SUMMARY | 2025-01-08 17:52 | XMS_ITS | Referral Summary ---
Author Organization [facility] Building B Address [address] [place] [address] Care Team Providers Care Floor Care Specialist Name Role Phone Karthikeyan Kearney MD Unavailable Radha Hewitt MD Primary Care Provider [phone] Encounters Date Type Department Care Team Description 12/17/2024 Orders Only [facility] Reproductive Endocrinology [address] [place] [phone] Edward Bailey MD 12/16/2024 Telephone [facility] Reproductive Endocrinology [address] [place] [phone] Edward Bailey MD PLACED ON FET SCHEDULE 12/04/2024 7:30 AM CDT Clinical Support [facility] Reproductive Endocrinology Lab [address] [place] [phone] Endometriosis (Primary Dx); Encounter for fertility testing; Screening for thyroid disorder 12/04/2024 7:36 AM CDT - 12/04/2024 11:59 PM CDT Hospital Encounter [address] [address] Endometriosis; Encounter for fertility testing; Screening for thyroid disorder Discharge Disposition: Discharge to home or self care 11/26/2024 Orders Only [facility] Reproductive Endocrinology [address] [place] [phone] Edward Bailey MD 11/15/2024 Telephone [facility] [address] [facility] [address] [place] [address] Jayjay Knapp MD 10/31/2024 Orders Only [facility] [address] [facility] Outpatient Health 3rd Floor [address] [place] [address] GretelDarnell garcia MD Vaginal candidiasis (Primary Dx) 10/25/2024 Results Follow-Up [facility] Reproductive Endocrinology [address] [facility] [address] [place] [address] Edward Bailey MD [place] Hysterosalpingogram 10/25/2024 7:01 AM CDT - 10/25/2024 11:59 PM CDT Hospital Encounter [facility] [address] [place] [address] Encounter for fertility testing Discharge Disposition: Discharge to home or self care 10/24/2024 12:51 PM CDT - 10/24/2024 11:59 PM CDT Hospital Encounter [facility] Card[facility] [address] [place], [place] [phone] Chest pain, unspecified type Discharge Disposition: Discharge to home or self care 10/16/2024 Orders Only [facility] Reproductive Endocrinology [address] [facility] [address] [place] [phone] Edward Bailey MD Encounter for fertility [...] 1 CAPSULE (25 MCG TOTAL) BY MOUTH COTTON CLASSER AIDE BEFORE BREAKFAST 30 capsule 5 5 025 [...] 07/11/2023 Assessment & Plan (07/11/2023 1:20 PM MANUFACTURING BUSINESS ANALYST): Over treated with vitamin b12 injections Advised [...] year Assessment & Plan (07/11/2023 1:21 PM MANUFACTURING BUSINESS ANALYST): Pt unable to afford Tirosint Start pt [...] appy and hemoperitoneum evacuation on 09/23 at [facility] d/t rupture R ovarian cyst -s/p asthenospermia on SA 01/2022. Plan for letrozole with timed intercourse and if fails, then for MIRZA referral Assessment & Plan (07/11/2023 1:19 PM MANUFACTURING BUSINESS ANALYST): Counseled on diet and exercise Advise to include healthy lifestyle habits Endometriosis 04/12/2021 Overview (08/24/2023): - longstanding h/o endometriosis, unresponsive to OCPs and depo - s/p 3 diagnostic laparoscopies, see below - currently attempting conception but unsuccessful for 12 months of unprotected intercourse - on clomid for PCOS through keg raiser with OPKs that were not positive on days 10-12 of cycle - partner with reportedly abnormal SA that was not followed up with urologist - TVUS 04/21 remarkable for [id number] antevetered uterus with normal right ovary. Left ovary with 3.5cm complex cyst with reticular pattern, possible hemorrhagic cyst vs endometrioma. No internal blood flow. - 2016: dx lsc with endo excision and left ovarian nodule removal (Dr. Funes, [facility]) - left US ligament with several implants of early endo which were removed. - 2019: dx lsc with endo resection and CHRIS (Dr. Leo, [facility]) - multiple posterior cul-de-sac endo implants with [...] medication. Assessment & Plan (05/13/2021 4:42 PM MANUFACTURING BUSINESS ANALYST): Reviewed r/b/a to surgical management for infertility [...] CDT Gender Identity Female 07/19/2021 11:09 AM MANUFACTURING BUSINESS ANALYST Sexual Orientation Straight 07/19/2021 11 :09 AM MANUFACTURING BUSINESS ANALYST Last Filed Vital Signs Vital Sign Reading [...] HEPATITIS C ANTIBODY Routine 05/29/2024 12:42 PM MANUFACTURING BUSINESS ANALYST Screening examination for sexually transmitted disease HIGH RISK HPV DNA DETECTION WITH GENOTYPING Routine 06/09/2023 11:35 AM MANUFACTURING BUSINESS ANALYST Well woman exam from Last 3 Months [...] was last revised 2024. Testing performed by: [facility], [address] [place] [address], [address], [facility] [phone] Blood 12/04/2024 7:24 AM CDT 12/04/2024 8:26 AM CDT us Edward Bailey MD LAB BLOOD ORDERABLES Final Result Performing Organization Address City/[facility] Co de Phone Number RUBÉN [facility] [place] [address] * TSH (12/04/2024 7:24 AM CDT) Thyroid Stimulating Hormone 0.46 0.30 - 4.20 mcIUnit/mL Comment:Testing performed by : [facility], [address] [place] [phone] Blood 12/04/2024 7:24 AM CDT 12/04/2024 8:26 AM CDT Edward Bailey MD LAB BLOOD ORDERABLES Final Result Performing Organization Address [facility] Co de Phone Number RUBÉN [facility] [place] [address] * Follicle stimulating hormone (12/04/2024 7:24 AM CDT) FSH 5.3 mIUnits/mL Comment: Interpretive Data Male: Adults: 1.5 - 12.4 mIUnits/mL Female: Follicular: 3.5 - 12.5 mIUnits/mL Ovulation: 4.7 - 21.5 mIUnits/mL Luteal: 1.7 - 7.7 mIUnits/mL Postmenopausal: 25.8 - 134.8 mIUnits/mL Current interpretive data was last revised 2017. Testing performed by: [facility], [address] [place] [phone] Blood 12/04/2024 7:24 AM CDT 12/04/2024 8:26 AM CDT Edward Bailey MD LAB BLOOD ORDERABLES Final Result Performing Organization Address City/[facility] Co de Phone Number RUBÉN [facility] [place] [address] * [place] Hysterosalpingogram (10/25/2024 8:12 AM CDT) [...] PM CDT Narrative 10/25/2024 7:51 AM CDT [address] [address] EXERCISE STRESS Patient Name: CELESTE SHORT K [...] BP: 167/73 METS achieved: 9 Rate-Pressure Product: 11594 BPM*mmHg Max ST: Medications: Free Text. Performed [...] Procedure Note Shaheed Cali MD - 10/25/[address] [place] [address] EXERCISE STRESS Patient Name: CELESTE SHORT K [...] BP: 167/73 METS achieved: 9 Rate-Pressure Product: 62302 BPM*mmHg Max ST: Medications: Free Text. Performed [...] Hepatitis C antibody Blood (05/29/2024 12:42 PM MANUFACTURING BUSINESS ANALYST) Hep C Ab Nonreactive Nonreactive Comment:Antibodies to HCV no t detected. Does NOT exclude the possibility of recent exposure to HCV. Current interpretive data was last revised on 22 Blood 05/29/2024 12:4 2 PM MANUFACTURING BUSINESS ANALYST 05/29/2024 4:42 PM MANUFACTURING BUSINESS ANALYST us Edward Bailey MD LAB MICROBIOLOGY - GENERAL ORDERABLES Final Result RUBÉN [facility] Department [place] [address] * High Risk HPV DNA Detection with Genotyping (Molecular component) (06/09/2023 11:35 AM MANUFACTURING BUSINESS ANALYST) HPV HR 16 Not Detected Not Detected [facility] HPV HR 18 Not Detected Not Detected [facility] HPV HR Non 16/18 Not Detected Not Detected [facility] Comment: Interpretive Data Nucleic acid amplification for [...] this test have been verified by the [facility] Molecular Infectious Disease laboratory. Correlate with separately reported cytology results, as applicable. Interpretive data last revised 22 Endocervical 06/09/2023 11:3 5 AM MANUFACTURING BUSINESS ANALYST 06/13/2023 7:10 AM MANUFACTURING BUSINESS ANALYST Narrative [facility] - 06/14/2023 5:46 AM MANUFACTURING BUSINESS ANALYST Clinical history and diagnosis->Routine screening Testing type->Screening Last menstrual period (date if known)->05/29/23 Darnell Majano MD LAB BODY FLUIDS AND STOOLS O RDERABLES Final Result [facility] Department [place] [address] from Last 3 Months or Most Recently Relevant to Health Maintenance Insurance AETNA [facility] HMO [facility] [id number] Advance Directives For more information, please contact: [phone] * Full Code (Latest Code Status on File) Date Activated Date Inactivated Comments 10/04/2024 6:58 AM 10/05/2024 5:21 AM Care Teams Floor Care Specialist Relationship Specialty Start Date End Date Karthikeyan Kearney MD PCP - chief librarian extension department Obstetrics and Gynecology 05/18/22 Radha Hewitt MD [address] [facility] [address] [address] PCP - General Family Medicine 10/07/24
--- OUTSIDE RECORDS SUMMARY | 2025-01-08 17:52 | XMS_ITS | Encounter Summary ---
Author Organization [facility] Address [address] [facility] [place] [address] Care Team Providers Care Counselor Supervisor Name Role Phone Yvette Rowland Primary Care Provider [phone] Reason for Visit * Reason Onset Date Comments MEDICATION REFILL 09/12/2024 Encounter Details Date Type Department Care Team (Late st Contact Info) Description 09/12/2024 Refill [facility] - Internal Medicine [address] [place] [address] Esau Boykin Jr., MD [address] [place], [place] [address] [address] [place] [address] MEDICATION REFILL Social History Tobacco Use Types Packs/Day Years Used Date Smoking Tobacco: Former Cigarettes Alcohol Use Standard Drinks/Week Comments Yes 0 (1 standard drink = 0.6 oz pur e alcohol) PHQ-2 Answer Date Recorded Patient Health Questionnaire-2 Score 1 09/12/2024 Comments Unknown Sex and Gender Information Value Date Recorded Sex Assigned at Female 07/15/2024 11:45 AM RECAPPER Legal Sex Female 12:41 PM RECAPPER Gender Identity Female 07/15/2024 11:45 AM RECAPPER Sexual Orientation Straight 07/15/2024 11 :45 AM RECAPPER 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
--- OUTSIDE RECORDS SUMMARY | 2025-01-08 17:52 | XMS_ITS | Clinical Summary ---
Author Organization [facility] Medical Office Building B Address [address] [place] [address] Care Team Providers Care Food Cooking Machine Operator Name Role Phone Karthikeyan Kearney MD Unavailable [phone] Radha Hewitt MD Primary Care Provider [phone] Allergies Active Allergy Reactions Criticality Noted Date [...] 1 CAPSULE (25 MCG TOTAL) BY MOUTH USABILITY ENGINEER BEFORE BREAKFAST 30 capsule 5 5 025 [...] 07/11/2023 Assessment & Plan (07/11/2023 1:20 PM EXPERIENCE DESIGNER): Over treated with vitamin b12 injections Advised [...] year Assessment & Plan (07/11/2023 1:21 PM EXPERIENCE DESIGNER): Pt unable to afford Tirosint Start pt [...] appy and hemoperitoneum evacuation on 09/23 at [facility] d/t rupture R ovarian cyst -s/p asthenospermia on SA 01/2022. Plan for letrozole with timed intercourse and if fails, then for MIRZA referral Assessment & Plan (07/11/2023 1:19 PM EXPERIENCE DESIGNER): Counseled on diet and exercise Advise to include healthy lifestyle habits Endometriosis 04/12/2021 Overview (08/24/2023): - longstanding h/o endometriosis, unresponsive to OCPs and depo - s/p 3 diagnostic laparoscopies, see below - currently attempting conception but unsuccessful for 12 months of unprotected intercourse - on clomid for PCOS through bevel mill operator with OPKs that were not positive on days 10-12 of cycle - partner with reportedly abnormal SA that was not followed up with urologist - TVUS 04/21 remarkable for [id number] antevetered uterus with normal right ovary. Left ovary with 3.5cm complex cyst with reticular pattern, possible hemorrhagic cyst vs endometrioma. No internal blood flow. - 2016: dx lsc with endo excision and left ovarian nodule removal (Dr. Funes, [facility]) - left US ligament with several implants of early endo which were removed. - 2019: dx lsc with endo resection and CHRIS (Dr. Leo, [facility]) - multiple posterior cul-de-sac endo [...] medication. Assessment & Plan (05/13/2021 4:42 PM EXPERIENCE DESIGNER): Reviewed r/b/a to surgical management for infertility [...] Department Care Team Description 12/17/2024 Orders Only [facility] Reproductive Endocrinology [address] [facility] [address] [place] [address] Edward Bailey MD 12/16/2024 Telephone [facility] Reproductive Endocrinology [address] [place] [address] [address] [place] [phone] Edward Bailey MD PLACED ON FET SCHEDULE 12/04/2024 7:36 AM CDT - 12/04/2024 11:59 PM CDT Hospital Encounter [facility] [address] [place] [address] [address] [place] [address] Endometriosis; Encounter for fertility testing; Screening for thyroid disorder Discharge Disposition: Discharge to home or self care 12/04/2024 7:30 AM CDT Clinical Support [facility] Reproductive Endocrinology Lab [address] [place] [phone] Endometriosis (Primary Dx); Encounter for fertility testing; Screening for thyroid disorder 11/26/2024 Orders Only [facility] Reproductive Endocrinology [address] [place] [phone] Edward Bailey MD 11/15/2024 Telephone [facility] [address] [place] [address] Jayjay Knapp MD 10/31/2024 Orders Only [facility] [address] [facility] Outpatient Health 3rd Floor [address] [place] [address] Darnlel Majano MD Vaginal candidiasis (Primary Dx) 10/25/2024 7:01 AM CDT - 10/25/2024 11:59 PM CDT Hospital Encounter [facility] [address] [place] [address] Encounter for fertility testing Discharge Disposition: Discharge to home or self care 10/25/2024 Results Follow-Up [facility] Reproductive Endocrinology [address] [place] [phone] Edward Bailey MD [place] Hysterosalpingogram 10/24/2024 12:51 PM CDT - 10/24/2024 11:59 PM CDT Hospital Encounter [facility] Cardiology [address] [place] [address] Chest pain, unspecified type Discharge Disposition: Discharge to home or self care 10/16/2024 Orders Only [facility] Reproductive Endocrinology [address] [facility] [address] [place] [address] Edward Bailey MD Encounter for fertility [...] CDT Gender Identity Female 07/19/2021 11:09 AM EXPERIENCE DESIGNER Sexual Orientation Straight 07/19/2021 11 :09 AM EXPERIENCE DESIGNER Obstetrics History Para Term AB IAB SAB [...] HEPATITIS C ANTIBODY Routine 05/29/2024 12:42 PM EXPERIENCE DESIGNER Screening examination for sexually transmitted disease HIGH RISK HPV DNA DETECTION WITH GENOTYPING Routine 06/09/2023 11:35 AM EXPERIENCE DESIGNER Well woman exam from Last 3 Months [...] was last revised 2024. Testing performed by: [facility] OBGYN [facility], [address] [place] [address], [address], [facility] [address] Blood 12/04/2024 7:24 AM CDT 12/04/2024 8:26 AM CDT us Edward Baliey MD LAB BLOOD ORDERABLES Final Result RUBÉN [facility] Department [place] [address] * TSH (12/04/2024 7:24 AM CDT) Thyroid Stimulating Hormone 0.46 0.30 - 4.20 mcIUnit/mL Comment:Testing performed by : [facility], [address] [place] [phone] Blood 12/04/2024 7:24 AM CDT 12/04/2024 8:26 AM CDT Edward Bailey MD LAB BLOOD ORDERABLES Final Result Performing Organization Address City/[facility] Co de Phone Number RUBÉN [facility] Department [place] [address] * Follicle stimulating hormone (12/04/2024 7:24 AM CDT) FSH 5.3 mIUnits/mL Comment: Interpretive Data Male: Adults: 1.5 - 12.4 mIUnits/mL Female: Follicular: 3.5 - 12.5 mIUnits/mL Ovulation: 4.7 - 21.5 mIUnits/mL Luteal: 1.7 - 7.7 mIUnits/mL Postmenopausal: 25.8 - 134.8 mIUnits/mL Current interpretive data was last revised 2017. Testing performed by: [facility], [address] [place] [phone] Blood 12/04/2024 7:24 AM CDT 12/04/2024 8:26 AM CDT Edward Bailey MD LAB BLOOD ORDERABLES Final Result Performing Organization Address City/[facility]/ZIP Co de Phone Number RUBÉN [facility] Department [place] [address] * [place] Hysterosalpingogram (10/25/2024 8:12 AM CDT) [...] PM CDT Narrative 10/25/2024 7:51 AM CDT [address] [address] EXERCISE STRESS Patient Name: CELESTE SHORT K [...] BP: 167/73 METS achieved: 9 Rate-Pressure Product: 13639 BPM*mmHg Max ST: Medications: Free Text. Performed [...] Procedure Note Shaheed Cali MD - 10/25/[address] [address] EXERCISE STRESS Patient Name: CELESET SHORT K : 1990 Study Date: 10/24/2024 [...] BP: 167/73 METS achieved: 9 Rate-Pressure Product: 63214 BPM*mmHg Max ST: Medications: Free Text. Performed [...] Hepatitis C antibody Blood (05/29/2024 12:42 PM EXPERIENCE DESIGNER) [facility] Hep C Ab Nonreactive Nonreactive Comment:Antibodies to HCV no t detected. Does NOT exclude the possibility of recent exposure to HCV. Current interpretive data was last revised on 22 Blood 05/29/2024 12:4 2 PM EXPERIENCE DESIGNER 05/29/2024 4:42 PM EXPERIENCE DESIGNER Edward Bailey MD LAB MICROBIOLOGY - GENERAL ORDERABLES Final Result RUBÉN [facility] Department [place] [address] * High Risk HPV DNA Detection with Genotyping (Molecular component) (06/09/2023 11:35 AM EXPERIENCE DESIGNER) HPV HR 16 Not Detected Not Detected [facility] HPV HR 18 Not Detected Not Detected [facility] HPV HR Non 16/18 Not Detected Not Detected [facility] Comment: Interpretive Data Nucleic acid amplification [...] this test have been verified by the [facility] Molecular Infectious Disease laboratory. Correlate with separately reported cytology results, as applicable. Interpretive data last revised 22 Endocervical 06/09/2023 11:3 5 AM EXPERIENCE DESIGNER 06/13/2023 7:10 AM EXPERIENCE DESIGNER Narrative [facility] - 06/14/2023 5:46 AM EXPERIENCE DESIGNER Clinical history and diagnosis->Routine screening Testing type->Screening Last menstrual period (date if known)->05/29/23 Darnell Majano MD LAB BODY FLUIDS AND STOOLS O RDERABLES Final Result [facility] [place] [address] from Last 3 Months or Most Recently Relevant to Health Maintenance Insurance AETNA [facility] HMO [id number] Advance Directives For more information, please contact: [phone] * Full Code (Latest Code Status on File) Date Activated Date Inactivated Comments 10/04/2024 6:58 AM 10/05/2024 5:21 AM Care Teams Food Cooking Machine Operator Relationship Specialty Start Date End Date Karthikeyan Kearney MD PCP - preboarder Obstetrics and Gynecology 05/18/22 Radha Hewitt MD [address] [place] [address] [facility] [address] PCP - General Family Medicine 10/07/24
--- OUTSIDE RECORDS SUMMARY | 2025-01-08 17:52 | XMS_ITS | Clinical Summary ---
Author Organization [facility] Address [address] [facility] [place] [address] Care Team Providers Care Mounter Smoking Pipe Name Role Phone Yvette Rowland Primary Care Provider [phone] Source Comments [facility],non-owned Affiliates and Associated Physician Practices is amultiple site organization consisting of ambulatory clinics and hospital sitesin [place], [place], [place] and [place]. This disclosure is being madepursuant to the Care Everywhere program and may not contain all information available regarding this patient. 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 on file Not on file Not on file Last Filed Vital Signs Vital Sign Reading Time Taken Comments Blood Pressure 140/78 10/24/2024 8:24 AM CDT Pulse 84 10/24/2024 8:24 AM CDT Temperature 36.6 C (97.9 F) 10/24/2024 8:24 AM CDT Respiratory Rate 20 07/03/2024 10:22 AM YARD SPOTTER Oxygen Saturation 97% 10/24/2024 8:24 AM CDT Inhaled Oxygen Concentration - - Weight 72.1 kg (159 lb) 10/24/2024 8:24 AM CDT Height 157.5 cm (5' 2) 07/25/2024 9:26 AM YARD SPOTTER Body Mass Index 29.08 07/25/2024 9:26 AM YARD SPOTTER Plan of Treatment Health Maintenance Due Date [...] this topic Insurance AETNA AETNA Care Teams Mounter Smoking Pipe Relationship Specialty Start Date End Date Yvette Rowland [address] [place] [address] PCP - General 07/03/24
[2025-01-08] MEDS: EPINEPHrine HCL INJ 1 MG/ML AMPUL 0.3 MG IM (18:26)
[2025-01-08] MEDS: LORATADINE 10 MG TABLET PO (18:26)
[2025-01-08 18:42] VITALS: BP 131/95; PULSE 87; RESP 20; TEMP 36.5; O2SAT 100
== END 2025-01-08 18:44 | disposition home or self-care (01) ==
PROVIDERS: Emergency Provider Emergency Medicine
DX: T78.40XA Allergy, unspecified, initial encounter (principal)
CPT/HCPCS: 96372; 99283; A9270; J0166; J7512

== ENCOUNTER 2025-04-02 16:45 | Emergency (ER) | payer OTHER, SELFPAY ==
--- NOTE | ~2025-04-02 | XR_ITS ---
EXAMINATION: XR chest 1V 04/02/2025 17:17 INDICATION: Dyspnea. TECHNIQUE:A single frontal image of the chest was obtained. COMPARISON: 04/24/2015 FINDINGS: Heart is not enlarged. No pneumothorax. No pleural effusion. No free air under the diaphragm. No focal pulmonary consolidation. IMPRESSION: 1: NO ACUTE CARDIOPULMONARY DISEASE. Reviewed, dictated and finalized at location [facility].
--- NOTE | 2025-04-02 16:46 | ECG_ITS ---
Test Date: 2025-04-02 16:56:35 Measurements Intervals [place] Rate: 96 P: 52 HI: 138 QRS: 67 QRSD: 79 T: 37 QT: 356 QTc: 452 Interpretive Statements SINUS RHYTHM BASELINE ARTIFACT- I, II, III, AVR, AVL, AVF, V1-V2 NORMAL ECG No previous ECG available for comparison Electronically Signed On 04-02-2025 17:39:38 CDT by Steven Echeverria D.O.
[2025-04-02 16:48] VITALS: BP 139/96; PULSE 101; RESP 20; TEMP 36.7; O2SAT 100
[2025-04-02 17:02] LABS: Hematocrit 36.7 % (37.0-47.0); Hemoglobin 12.7 g/dL (12.0-15.0); Immature Granulocyte Percent A 0.3 % (0-0.5); Lymphocytes Absolute Auto 3.04 K/mm3 (0.9-3.2); Mean Corpuscular HGB Conc 34.6 g/dl (32-36); Mean Corpuscular Hemoglobin 31.5 pg (26-34); Mean Corpuscular Volume 91.1 fl (80-100); Nucleated Red Blood Cells Absolute Auto 0.000 K/mm3 (0.0-0.012); Nucleated Red Blood Cells Perc 0.0 % (0.0-0.2); Platelet Count Result 285 k/mm3 (150-375); Red Blood Count 4.03 M/mm3 (4.2-5.4); White Blood Count 10.3 K/mm3 (4.5-10.0)
[2025-04-02 17:12] LABS: Alanine Aminotransferase 26 U/L (6-35); Albumin Level 4.5 g/dL (3.5-5.1); Alkaline Phosphatase 68 U/L (38-126); Anion Gap 9 mmol/L (4-12); Aspartate Amino Transferase 26 U/L (14-36); Bilirubin,Total 0.4 mg/dL (0.2-1.3); Blood Urea Nitrogen 14 mg/dL (7-17); Calcium 9.5 mg/dL (8.4-10.2); Carbon Dioxide 21 mmol/L (22-30); Chloride 104 mmol/L (98-107); Estimated CRCL calculation 85 ml/min; Estimated Glomerular Filt Rate > 60; Glucose 110 mg/dL (65-110); Lipase 75 U/L (23-300); Potassium 3.2 mmol/L (3.4-5.0); Sodium 134 mmol/L (137-145); Total Protein 7.7 g/dL (6.3-8.2)
[2025-04-02 17:19] LABS: INR 1.0; Prothrombin Time 13.2 Seconds (11.1-14.7)
[2025-04-02 17:20] LABS: Partial Thromboplastin Time 27.4 Seconds (22.3-36.8)
[2025-04-02 17:24] LABS: Troponin I < 0.012 ng/mL (0.000-0.034)
--- NOTE | 2025-04-02 18:15 | ED.GENADULT ---
HPI - General Adult General Chief complaint: Chest Pain <Mojgan Keith, DIESEL LOCOMOTIVE FIRER - Last Filed: 04/02/25 18:20> Stated complaint: chest pain <Mojgan Olson October, DIESEL LOCOMOTIVE FIRER - Last Filed: 04/02/25 18:20> Time Seen by Provider: 04/02/25 18:15 <Mojgan Keith, DIESEL LOCOMOTIVE FIRER - Last Filed: 04/02/25 18:20> Focused HPI: Celeste Emery is a 34 y/o female who present today with reports of starting progesterone injections on Feb 20 for IVF, started to have chest pain 3 days ago, she thought it was maybe from related to her vaping but she did quite, she states the pain at 1200 got a lot worse 7/10 non radiating, she states she feels that she cannot take a deep breath. Before the IVF she had a EKG, Chest xr and Stress test that was normal GENERAL: Well-appearing, well-nourished, and in no acute distress. HEAD: Normocephalic, atraumatic. CHEST: Clear to auscultation. ?No respiratory distress. HEART: Regular rate and rhythm.? NEURO: ?Alert and oriented x3. Patient screened in triage and initial orders placed.? ?Additional care and disposition to be based upon?diagnostic testing and treatment. <Mojgan Keith, DIESEL LOCOMOTIVE FIRER - Last Filed: 04/02/25 18:20> Related Data Home medications: Home Medications ?Medication ?Instructions ?Recorded ?Confirmed ?Last Taken ?Type brexpiprazole 2 mg tablet (Rexulti) mg 04/15/24 Unknown History clonazepam 0.5 mg tablet mg 04/15/24 Unknown History cyclobenzaprine 10 mg tablet mg 04/15/24 Unknown History diazepam 5 mg tablet mg 04/15/24 Unknown History ergocalciferol (vitamin D2) 1,250 04/15/24 Unknown History mcg (50,000 unit) capsule ibuprofen 800 mg tablet mg 04/15/24 Unknown History levothyroxine 25 mcg capsule mcg PO 04/15/24 Unknown History (Tirosint) efmhtf-hyvwrpat-ednxydi (pork) cap PO 04/15/24 Unknown History 3,000-10,000-14k unit capsule,del rel (Zenpep) metoprolol tartrate 25 mg tablet mg 04/15/24 Unknown History ondansetron 8 mg disintegrating mg 04/15/24 Unknown History tablet relugolix 40 mg-estradiol 1 tablet PO 04/15/24 04/15/24 Unknown History mg-norethindrone acetate 0.5 mg tablet (Myfembree) sulfacetamide sodium 10 % eye drops drp 04/15/24 Unknown History <Mojgan Olson October, - Last Filed: 04/02/25 18:20> Allergies/adverse reactions: Allergies Allergy/AdvReac Type Severity Reaction Status Date / Time latex Allergy Intermediate RASH Verified 01/08/25 17:19 cephalexin AdvReac Intermediate RASH Verified 01/08/25 17:19 codeine AdvReac Intermediate VOMITING Verified 01/08/25 17:19 <Mojgan Olson October, [employer]EL [employer]ER - Last Filed: 04/02/25 18:20> Review of Systems Review of Systems: All systems reviewed & are unremarkable except as noted in HPI and below <Annmarie Rosen, DIESEL LOCOMOTIVE FIRER - Last Filed: 04/02/25 23:10> Exam Narrative: GENERAL: Well appearing, well-nourished, non-toxic, in no acute distress. HEAD: Normocephalic, atraumatic. NECK: Supple. No adenopathy, no masses. RESPIRATORY: Airway patent, respirations nonlabored. Clear to auscultation bilaterally, no rales, rhonchi, wheezing. CARDIOVASCULAR: Regular rate and rhythm without murmurs, rubs, or gallops. Peripheral pulses 2+ and equal bilaterally. ABDOMINAL: Soft, nontender, nondistended, no hepatosplenomegaly. Normoactive BS. MUSCULOSKELETAL: Moves all extremities. Strength/ROM intact without gross deformities. SKIN: Warm, dry, normal color. No rashes. NEURO: A&O X3. Speech clear. Cranial nerves II-XII intact. No ataxic movements. PSYCHIATRIC: Appropriate mood and affect. Normal interaction. <Annmarie Rosen, DIESEL LOCOMOTIVE FIRER - Last Filed: 04/02/25 23:10> Course Vital Signs Vital signs: Vital Signs Temperature 36.7 C 04/02/25 16:48 Pulse Rate 101 H 04/02/25 16:48 Respiratory Rate 20 04/02/25 16:48 Blood Pressure 139/96 H 04/02/25 16:48 Pulse Oximetry 100 04/02/25 16:48 Oxygen Delivery Room Air 04/02/25 16:48 Temperature 36.7 C 04/02/25 16:48 Pulse Rate 101 H 04/02/25 16:48 Respiratory Rate 20 04/02/25 16:48 Blood Pressure 139/96 H 04/02/25 16:48 Pulse Oximetry 100 04/02/25 16:48 Oxygen Delivery Room Air 04/02/25 16:48 <Mojgan Keith, DIESEL LOCOMOTIVE FIRER - Last Filed: 04/02/25 18:20> Vital Signs Temperature 36.7 C 04/02/25 16:48 Pulse Rate 101 H 04/02/25 16:48 Respiratory Rate 20 04/02/25 16:48 Blood Pressure 139/96 H 04/02/25 16:48 Pulse Oximetry 100 04/02/25 16:48 Oxygen Delivery Room Air 04/02/25 16:48 Temperature 36.7 C 04/02/25 16:48 Pulse Rate 101 H 04/02/25 16:48 Respiratory Rate 20 04/02/25 16:48 Blood Pressure 139/96 H 04/02/25 16:48 Pulse Oximetry 100 04/02/25 16:48 Oxygen Delivery Room Air 04/02/25 16:48 <Annmarie Rosen, DIESEL LOCOMOTIVE FIRER - Last Filed: 04/02/25 23:10> Medical Decision Making MDM Narrative Medical decision making narrative: Patient is a 34-year-old female who presents to the ER with chest pain that has been present since she started progesterone on February 20, 2025. She reports around noon the pain became significantly worse. Patient endorses shortness of breath and constant chest pain. She also endorses a ?light nonproductive cough. Patient reports she is currently going through IVF and is approximately 6 weeks . She endorses a history of Ronna's but reports her TSH was just checked and it was normal. Patient denies any recent fevers, urinary symptoms, new onset back pain or abdominal pain. Labs Ordered: CBC, CMP, PTT, INR, troponin, D-dimer, lipase Imaging Ordered: Chest x-ray Medications Ordered: 1 L normal saline IV bolus, Benadryl 25 mg IV, Reglan 10 mg IV Diagnosis: Atypical chest pain, side effect of medication Risks: HEART score: low risk HEART Score for Major Cardiac Events from [email or web address] on 04/02/2025 All calculations should be rechecked by clinician prior to use RESULT SUMMARY: 2 points Low Score (0-3 points) Risk of MACE of 0.9-1.7%. INPUTS: History ?> 1 = Moderately suspicious EKG ?> 0 = Normal Age ?> 0 = <45 Risk factors ?> 1 = 1-2 risk factors Initial troponin ?> 0 = <Normal limit Consults: OBGYN (outpatient), already established Patient Education/Shared MDM: Results of lab work And imaging shared with patient. she endorses improvement of symptoms following medication administration. Patient strongly advised to maintain hydration status upon discharge and follow-up with her OBGYN as soon as possible. She will be discharged home with a prescription for Reglan and Benadryl. Strict return precautions provided. Patient verbalized understanding and is in agreement with plan. Vital signs stable at time of discharge. All questions answered. <Annmarie Rosen, DIESEL LOCOMOTIVE FIRER - Last Filed: 04/02/25 23:10> Differential Diagnosis Differential Diagnosis: STEMI, pulmonary embolism, abnormal thyroid, pneumonia, atypical chest pain <Annmarie Rosen, DIESEL LOCOMOTIVE FIRER - Last Filed: 04/02/25 23:10> Vital Signs Vital Signs: Vital Signs Temperature 36.7 C 04/02/25 16:48 Pulse Rate 101 H 04/02/25 16:48 Respiratory Rate 20 04/02/25 16:48 Blood Pressure 139/96 H 04/02/25 16:48 Pulse Oximetry 100 04/02/25 16:48 Oxygen Delivery Room Air 04/02/25 16:48 Temperature 36.7 C 04/02/25 16:48 Pulse Rate 101 H 04/02/25 16:48 Respiratory Rate 20 04/02/25 16:48 Blood Pressure 139/96 H 04/02/25 16:48 Pulse Oximetry 100 04/02/25 16:48 Oxygen Delivery Room Air 04/02/25 16:48 <Mojgan Keith, DIESEL LOCOMOTIVE FIRER - Last Filed: 04/02/25 18:20> Vital Signs Temperature 36.7 C 04/02/25 16:48 Pulse Rate 101 H 04/02/25 16:48 Respiratory Rate 20 04/02/25 16:48 Blood Pressure 139/96 H 04/02/25 16:48 Pulse Oximetry 100 04/02/25 16:48 Oxygen Delivery Room Air 04/02/25 16:48 Temperature 36.7 C 04/02/25 16:48 Pulse Rate 101 H 04/02/25 16:48 Respiratory Rate 20 04/02/25 16:48 Blood Pressure 139/96 H 04/02/25 16:48 Pulse Oximetry 100 04/02/25 16:48 Oxygen Delivery Room Air 04/02/25 16:48 <Annmarie Rosen, DIESEL LOCOMOTIVE FIRER - Last Filed: 04/02/25 23:10> Lab Data Lab results reviewed: Yes I reviewed the patient's lab results. <Annmarie Rosen, DIESEL LOCOMOTIVE FIRER - Last Filed: 04/02/25 23:10> Result diagrams: 04/02/25 16:58 04/02/25 16:58 <Mojgan Keith, DIESEL LOCOMOTIVE FIRER - Last Filed: 04/02/25 18:20> Labs: Lab Results 04/02/25 04/02/25 Range/Units 16:58 20:52 WBC 10.3 H (4.5-10.0) K/mm3 RBC 4.03 L (4.2-5.4) M/mm3 Hgb 12.7 (12.0-15.0) g/dL Hct 36.7 L (37.0-47.0) % MCV 91.1 (80-100) fl MCH 31.5 (26-34) pg MCHC 34.6 (32-36) g/dl RDW 11.9 (11.5-14.5) % Plt Count 285 (150-375) k/mm3 MPV 8.9 (7.4-10.4) fl Immature Gran % (Auto) 0.3 (0-0.5) % Neut % (Auto) 61.0 (45.5-73.1) % Lymph % (Auto) 29.5 (18.3-44.2) % [place] % (Auto) 6.2 (2.6-8.5) % Eos % (Auto) 2.3 (0-4.4) % Baso % (Auto) 0.7 (0.2-1.2) % Lymph # (Auto) 3.04 (0.9-3.2) K/mm3 [place] # (Auto) 0.6 (0.1-0.6) K/mm3 Eos # (Auto) 0.2 (0-0.3) K/mm3 Baso # (Auto) 0.1 (0.0-0.1) K/mm3 Abs Immat Gran (auto) 0.03 (0.00-0.031) K/mm3 Absolute Neuts (auto) 6.3 (1.3-6.7) K/mm3 Absolute Nucleated RBC 0.000 (0.0-0.012) K/mm3 Nucleated RBC % 0.0 (0.0-0.2) % PT 13.2 (11.1-14.7) Seconds INR 1.0 APTT 27.4 (22.3-36.8) Seconds D-Dimer 0.44 (<0.48) ug/mL Sodium 134 L (137-145) mmol/L Potassium 3.2 L (3.4-5.0) mmol/L Chloride 104 (98-107) mmol/L Carbon Dioxide 21 L (22-30) mmol/L Anion Gap 9 (4-12) mmol/L BUN 14 (7-17) mg/dL Creatinine 0.75 (0.7-1.0) mg/dL Estim Creat Clear Calc 85 ml/min Estimated GFR > 60 (59 - ) Glucose 110 (65-110) mg/dL Calcium 9.5 (8.4-10.2) mg/dL Total Bilirubin 0.4 (0.2-1.3) mg/dL AST 26 (14-36) U/L ALT 26 (6-35) U/L Alkaline Phosphatase 68 (38-126) U/L Troponin I < 0.012 < 0.012 (0.000-0.034) ng/mL Total Protein 7.7 (6.3-8.2) g/dL Albumin 4.5 (3.5-5.1) g/dL Lipase 75 (23-300) U/L <Mojgan Keith, DIESEL LOCOMOTIVE FIRER - Last Filed: 04/02/25 18:20> Lab Results 04/02/25 04/02/25 Range/Units 16:58 20:52 WBC 10.3 H (4.5-10.0) K/mm3 RBC 4.03 L (4.2-5.4) M/mm3 Hgb 12.7 (12.0-15.0) g/dL Hct 36.7 L (37.0-47.0) % MCV 91.1 (80-100) fl MCH 31.5 (26-34) pg MCHC 34.6 (32-36) g/dl RDW 11.9 (11.5-14.5) % Plt Count 285 (150-375) k/mm3 MPV 8.9 (7.4-10.4) fl Immature Gran % (Auto) 0.3 (0-0.5) % Neut % (Auto) 61.0 (45.5-73.1) % Lymph % (Auto) 29.5 (18.3-44.2) % [place] % (Auto) 6.2 (2.6-8.5) % Eos % (Auto) 2.3 (0-4.4) % Baso % (Auto) 0.7 (0.2-1.2) % Lymph # (Auto) 3.04 (0.9-3.2) K/mm3 [place] # (Auto) 0.6 (0.1-0.6) K/mm3 Eos # (Auto) 0.2 (0-0.3) K/mm3 Baso # (Auto) 0.1 (0.0-0.1) K/mm3 Abs Immat Gran (auto) 0.03 (0.00-0.031) K/mm3 Absolute Neuts (auto) 6.3 (1.3-6.7) K/mm3 Absolute Nucleated RBC 0.000 (0.0-0.012) K/mm3 Nucleated RBC % 0.0 (0.0-0.2) % PT 13.2 (11.1-14.7) Seconds INR 1.0 APTT 27.4 (22.3-36.8) Seconds D-Dimer 0.44 (<0.48) ug/mL Sodium 134 L (137-145) mmol/L Potassium 3.2 L (3.4-5.0) mmol/L Chloride 104 (98-107) mmol/L Carbon Dioxide 21 L (22-30) mmol/L Anion Gap 9 (4-12) mmol/L BUN 14 (7-17) mg/dL Creatinine 0.75 (0.7-1.0) mg/dL Estim Creat Clear Calc 85 ml/min Estimated GFR > 60 (59 - ) Glucose 110 (65-110) mg/dL Calcium 9.5 (8.4-10.2) mg/dL Total Bilirubin 0.4 (0.2-1.3) mg/dL AST 26 (14-36) U/L ALT 26 (6-35) U/L Alkaline Phosphatase 68 (38-126) U/L Troponin I < 0.012 < 0.012 (0.000-0.034) ng/mL Total Protein 7.7 (6.3-8.2) g/dL Albumin 4.5 (3.5-5.1) g/dL Lipase 75 (23-300) U/L <Annmarie Rosen APRN - Last Filed: 04/02/25 23:10> Imaging Data Attestation: I personally reviewed and interpreted this imaging study as follows: <Annmarie Rosen APRN - Last Filed: 04/02/25 23:10> Radiologist's impression: Impressions Chest X-Ray 04/02/25 17:26 IMPRESSION: 1: NO ACUTE CARDIOPULMONARY DISEASE. <Annmarie Rosen APRN - Last Filed: 04/02/25 23:10> Discharge Plan Discharge Clinical Impression: Atypical chest pain, Medication side effect <Mojgan Keith DIESEL LOCOMOTIVE FIRER - Last Filed: 04/02/25 18:20> Patient Disposition: Home <Mojgan Keith DIESEL LOCOMOTIVE FIRER - Last Filed: 04/02/25 18:20> Condition: Stable <Mojgan Keith DIESEL LOCOMOTIVE FIRER - Last Filed: 04/02/25 18:20> Instructions: Antibiotic Form, Noncardiac Chest Pain (ED) <Mojgan Keith, DIESEL LOCOMOTIVE FIRER - Last Filed: 04/02/25 18:20> Additional Instructions: Please return to the ER with any worsening symptoms. Follow-up with your OBGYN as soon as possible. Take all medications as prescribed, including regularly scheduled medications. <Mojgan Keith DIESEL LOCOMOTIVE FIRER - Last Filed: 04/02/25 18:20> Patient Language: Swedish <Mojgan Keith, DIESEL LOCOMOTIVE FIRER - Last Filed: 04/02/25 18:20> Prescriptions: New diphenhydramine HCl [Benadryl] 25 mg capsule 25 mg PO TID PRN (Reason: nausea and vomiting) Qty: 20 0RF metoclopramide HCl [Reglan] 10 mg tablet 10 mg PO Q6H PRN (Reason: nausea and vomiting) Qty: 30 0RF No Action valacyclovir 1 gram tablet 1,000 mg PO TID 7 Days Qty: 21 0RF cyclobenzaprine 10 mg tablet ibuprofen 800 mg tablet clonazepam 0.5 mg tablet ondansetron 8 mg tablet,disintegrating sulfacetamide sodium 10 % drops ergocalciferol (vitamin D2) 1,250 mcg (50,000 unit) capsule diazepam 5 mg tablet metoprolol tartrate 25 mg tablet levothyroxine [Tirosint] 25 mcg capsule PO Rexulti 2 mg tablet Zenpep 3,000-10,000 -14,000-unit capsule,delayed release(DR/EC) PO Myfembree 40-1-0.5 mg tablet PO prednisone 20 mg tablet 40 mg PO DAILY 5 Days Qty: 10 0RF Zyrtec 10 mg capsule 10 mg PO BID PRN (Reason: allergy symptoms) Qty: 20 0RF <Mojgan Keith, DIESEL LOCOMOTIVE FIRER - Last Filed: 04/02/25 18:20> Follow-up/Referrals: PHYSICIAN NOT ON STAFF,NONSTAFF [Primary Care Provider] <Mojgan Keith, DIESEL LOCOMOTIVE FIRER - Last Filed: 04/02/25 18:20> Stand Alone Forms: Work/School Release IP <Mojgan Keith, DIESEL LOCOMOTIVE FIRER - Last Filed: 04/02/25 18:20> Time of Disposition: 23:10 <Mojgan Keith, DIESEL LOCOMOTIVE FIRER - Last Filed: 04/02/25 18:20> 23:10 <Annmarie Rosen DIESEL LOCOMOTIVE FIRER - Last Filed: 04/02/25 23:10>
--- NOTE | 2025-04-02 20:09 | ECG_ITS ---
Test Date: 2025-04-02 20:35:32 Measurements Intervals [place] Rate: 71 P: 50 RI: 142 QRS: 65 QRSD: 94 T: 40 QT: 392 QTc: 426 Interpretive Statements SINUS RHYTHM INCOMPLETE RIGHT BUNDLE BRANCH BLOCK BORDERLINE ECG Compared to ECG 04/02/2025 16:56:35 No significant changes Electronically Signed On 04-03-2025 05:10:19 CDT by Steven Echeverria D.O.
--- NOTE | 2025-04-02 20:42 | ED_ITS ---
HPI - Chest Pain General Chief Complaint: Chest Pain Stated Complaint: chest pain Time Seen by Provider: 04/02/25 18:15 History of Present Illness HPI narrative: Patient is a 34-year-old female who presents to the ER with chest pain that has been present since she started progesterone on February 20, 2025. She reports around noon the pain became significantly worse. Patient endorses shortness of breath and constant chest pain. She also endorses a ?light nonproductive cough. Patient reports she is currently going through IVF and is approximately 6 weeks . She endorses a history of Ronna's but reports her TSH was just checked and it was normal. Patient denies any recent fevers, urinary symptoms, new onset back pain or abdominal pain. Related Data Home Medications ?Medication ?Instructions ?Recorded ?Confirmed ?Last Taken ?Type brexpiprazole 2 mg tablet (Rexulti) mg 04/15/24 Unkno wn History clonazepam 0.5 mg tablet mg 04/15/24 Unknown History cyclobenzaprine 10 mg tablet mg 04/15/24 Unknown Hist ory diazepam 5 mg tablet mg 04/15/24 Unknown History ergocalciferol (vitamin D2) 1,250 04/15/24 Unknown H istory mcg (50,000 unit) capsule ibuprofen 800 mg tablet mg 04/15/24 Unknown History levothyroxine 25 mcg capsule mcg PO 04/15/24 Unknown History (Tirosint) nphblp-vyrndzrp-dekdcpm (pork) cap PO 04/15/24 Unknow n History 3,000-10,000-14k unit capsule,del rel (Zenpep) metoprolol tartrate 25 mg tablet mg 04/15/24 Unknown History ondansetron 8 mg disintegrating mg 04/15/24 Unknown H istory tablet relugolix 40 mg-estradiol 1 tablet PO 04/15/24 4 Unknown History mg-norethindrone acetate 0.5 mg tablet (Myf[place]ree) sulfacetamide sodium 10 % eye drops drp 04/15/24 Unkn own History Allergies Allergy/AdvReac Type Severity Reaction Status Date / Time latex Allergy Intermediate RASH Verified 01/08/25 17:19 cephalexin AdvReac Intermediate RASH Verified 01/08/25 17:19 codeine AdvReac Intermediate VOMITING Verified 01/08/25 17:19 Review of Systems 2 Review of Systems: All systems reviewed & are unremarkable except as noted in HPI and below Exam 2 Narrative: GENERAL: Well appearing, well-nourished, non-toxic, in no acute distress. HEAD: Normocephalic, atraumatic. NECK: Supple. No adenopathy, no masses. RESPIRATORY: Airway patent, respirations nonlabored. Clear to auscultation bilaterally, no rales, rhonchi, wheezing. CARDIOVASCULAR: Regular rate and rhythm without murmurs, rubs, or gallops. Peripheral pulses 2+ and equal bilaterally. ABDOMINAL: Soft, nontender, nondistended, no hepatosplenomegaly. Normoactive BS. MUSCULOSKELETAL: Moves all extremities. Strength/ROM intact without gross deformities. SKIN: Warm, dry, normal color. No rashes. NEURO: A&O X3. Speech clear. Cranial nerves II-XII intact. No ataxic movements. PSYCHIATRIC: Appropriate mood and affect. Normal interaction. Course Vital Signs Vital signs: Vital Signs Temperature 36.7 C 04/02/25 16:48 Pulse Rate 101 H 04/02/25 16:48 Respiratory Rate 20 04/02/25 16:48 Blood Pressure 139/96 H 04/02/25 16:48 Pulse Oximetry 100 04/02/25 16:48 Oxygen Delivery Room Air 04/02/25 16:48 Temperature 36.7 C 04/02/25 16:48 Pulse Rate 101 H 04/02/25 16:48 Respiratory Rate 20 04/02/25 16:48 Blood Pressure 139/96 H 04/02/25 16:48 Pulse Oximetry 100 04/02/25 16:48 Oxygen Delivery Room Air 04/02/25 16:48 MDM - Chest Pain MDM Narrative Medical decision making narrative: Patient is a 34-year-old female who presents to the ER with chest pain that has been present since she started progesterone on February 20, 2025. She reports around noon the pain became significantly worse. Patient endorses shortness of breath and constant chest pain. She also endorses a ?light nonproductive cough. Patient reports she is currently going through IVF and is approximately 6 weeks . She endorses a history of Ronna's but reports her TSH was just checked and it was normal. Patient denies any recent fevers, urinary symptoms, new onset back pain or abdominal pain. Labs Ordered: Imaging Ordered: Medications Ordered: Results: Diagnosis: Risks: HEART score, PECARN score, CURB-65 score Consults: Lab Data 04/02/25 16:58 04/02/25 16:58 Labs: Lab Results 04/02/25 04/02/25 Range/Units 16:58 20:52 WBC 10.3 H (4.5-10.0) K/mm3 RBC 4.03 L (4.2-5.4) M/mm3 Hgb 12.7 (12.0-15.0) g/dL Hct 36.7 L (37.0-47.0) % MCV 91.1 (80-100) fl MCH 31.5 (26-34) pg MCHC 34.6 (32-36) g/dl RDW 11.9 (11.5-14.5) % Plt Count 285 (150-375) k/mm3 MPV 8.9 (7.4-10.4) fl Immature Gran % (Auto) 0.3 (0-0.5) % Neut % (Auto) 61.0 (45.5-73.1) % Lymph % (Auto) 29.5 (18.3-44.2) % [place] % (Auto) 6.2 (2.6-8.5) % Eos % (Auto) 2.3 (0-4.4) % Baso % (Auto) 0.7 (0.2-1.2) % Lymph # (Auto) 3.04 (0.9-3.2) K/mm3 [place] # (Auto) 0.6 (0.1-0.6) K/mm3 Eos # (Auto) 0.2 (0-0.3) K/mm3 Baso # (Auto) 0.1 (0.0-0.1) K/mm3 Abs Immat Gran (auto) 0.03 (0.00-0.031) K/mm3 Absolute Neuts (auto) 6.3 (1.3-6.7) K/mm3 Absolute Nucleated RBC 0.000 (0.0-0.012) K/mm3 Nucleated RBC % 0.0 (0.0-0.2) % PT 13.2 (11.1-14.7) Seconds INR 1.0 APTT 27.4 (22.3-36.8) Seconds D-Dimer 0.44 (<0.48) ug/mL Sodium 134 L (137-145) mmol/L Potassium 3.2 L (3.4-5.0) mmol/L Chloride 104 (98-107) mmol/L Carbon Dioxide 21 L (22-30) mmol/L Anion Gap 9 (4-12) mmol/L BUN 14 (7-17) mg/dL Creatinine 0.75 (0.7-1.0) mg/dL Estim Creat Clear Calc 85 ml/min Estimated GFR > 60 (59 - ) Glucose 110 (65-110) mg/dL Calcium 9.5 (8.4-10.2) mg/dL Total Bilirubin 0.4 (0.2-1.3) mg/dL AST 26 (14-36) U/L ALT 26 (6-35) U/L Alkaline Phosphatase 68 (38-126) U/L Troponin I < 0.012 < 0.012 (0.000-0.034) ng/mL Total Protein 7.7 (6.3-8.2) g/dL Albumin 4.5 (3.5-5.1) g/dL Lipase 75 (23-300) U/L Discharge Plan Discharge Patient Language: Thai Prescriptions: No Action valacyclovir 1 gram tablet 1,000 mg PO TID 7 Days Qty: 21 0RF cyclobenzaprine 10 mg tablet ibuprofen 800 mg tablet clonazepam 0.5 mg tablet ondansetron 8 mg tablet,disintegrating sulfacetamide sodium 10 % drops ergocalciferol (vitamin D2) 1,250 mcg (50,000 unit) capsule diazepam 5 mg tablet metoprolol tartrate 25 mg tablet levothyroxine [Tirosint] 25 mcg capsule PO Rexulti 2 mg tablet Zenpep 3,000-10,000 -14,000-unit capsule,delayed release(DR/EC) PO Myfembree 40-1-0.5 mg tablet PO prednisone 20 mg tablet 40 mg PO DAILY 5 Days Qty: 10 0RF Zyrtec 10 mg capsule 10 mg PO BID PRN (Reason: allergy symptoms) Qty: 20 0RF Follow-up/Referrals: PHYSICIAN NOT ON STAFF,NONSTAFF [Primary Care Provider]
[2025-04-02] MEDS: SODIUM CHLORIDE 0.9% IV 1,000 ML 999 ML IV CONT (20:48)
[2025-04-02] MEDS: METOCLOPRAMIDE HCL INJ 10 MG/2 ML VIAL IV PUSH (20:49)
[2025-04-02 21:21] LABS: Troponin I < 0.012 ng/mL (0.000-0.034)
== END 2025-04-02 23:28 | disposition home or self-care (01) ==
PROVIDERS: Emergency Medicine; Emergency Provider Registered Nurse
DX: O09.811 Supervision of pregnancy resulting from assisted reproductive technology, first trimester (principal); R07.89 Other chest pain; T38.5X5A Adverse effect of other estrogens and progestogens, initial encounter; O99.281 Endocrine, nutritional and metabolic diseases complicating pregnancy, first trimester; E06.3 Autoimmune thyroiditis; O99.411 Diseases of the circulatory system complicating pregnancy, first trimester; I45.10 Unspecified right bundle-branch block; Z3A.01 Less than 8 weeks gestation of pregnancy; Z79.899 Other long term (current) drug therapy
CPT/HCPCS: 36415; 71045; 80053; 83690; 84484; 85025; 85380; 85610; 85730; 93005; 96361; 96374; 96375; 99284; J1200; J2765; J7030